=== PATIENT | male | born 1935 | race Caucasian/White ===

== ENCOUNTER → 2017-11-15 12:17 | Outpatient (CLI) | payer OTHER, SELFPAY ==
[2017-11-15 14:03] LABS: BUN Creatinine Ratio 27.1 (6-22); Blood Urea Nitrogen 19 mg/dL (9-20); Calcium 9.8 mg/dL (8.4-10.2); Carbon Dioxide 29 mmol/L (22-32); Chloride 102 mmol/L (98-107); Estimated Glomerular Filt Rate > 60.0 mL/min (>60); Glucose 98 mg/dL (80-110); HEMOLYSIS < 15 (0-50); Potassium 4.3 mmol/L (3.4-5.1); Sodium 138 mmol/L (137-145)
== END ==
PROVIDERS: Family Provider Family Medicine; PCP Family Medicine; Visit Provider Internal Medicine
DX: E87.1 Hypo-osmolality and hyponatremia (principal); I10 Essential (primary) hypertension
CPT/HCPCS: 36415; 80048

== ENCOUNTER 2018-08-14 09:26 | Day surgery (SDC) | payer OTHER, SELFPAY ==
[2018-08-14] MEDS: PROPARACAINE 0.5% OPHTH SOL 2 DROPS EYE-OP (09:53)
[2018-08-14] MEDS: CATARACT EYE COMPOUND (10 DROPS/SYRINGE) 3 DROPS EYE-OP ×3 (09:56→10:11)
[2018-08-14 09:58] VITALS: BP 180/100; PULSE 68; RESP 16; TEMP 36.1
--- NOTE | 2018-08-14 11:02 | PM.PREOP ---
Pre-operative Note Interval Note History & Physical reviewed/Exam performed by Physician: No Changes to H&P: No
--- NOTE | 2018-08-14 11:02 | PM.OP.1 ---
Operative Date/Time/Diagnoses Pre-op diagnosis: Nuclear cataract right eye Procedure & Clinicians Procedure: Cataract Surgery Same procedure as scheduled: Yes Surgeon: Joe Houston Anesthesia Type: MAC +/- and Sedation Operative Notes Procedure in detail: Patient brought to the operating suite. Tetracaine drops placed in the right eye. Patient was prepped and draped in sterile manner. Wire lid speculum was placed in the eye. Betadine drops were placed on the eye. This was irrigated. Lidocaine jelly was placed on the eye. A paracentesis port was created with a side-port blade. 0.1 mL 1% preservative free lidocaine was injected into the anterior chamber. The anterior chamber was deepened with viscoelastic. 2.6 mm keratome was used to create a temporal clear corneal incision. The pupil was floppy and miotic. A 6.25 mm Maluygin ring was used to enlarge the pupil. Cystotome and Utrata forceps were used to create continuous tear capsulorrhexis. Balanced salt solution was used to hydro dissect the nucleus. The phacoemulsification handpiece was inserted and the nucleus was removed using the stop and chop technique. The nucleous was extremely dense. The irrigation aspiration handpiece was inserted and the remaining cortex was removed. Anterior chamber was deepened with viscoelastic. An [place] ZCB00 intraocular lens with a power of 20.5 was injected into the capsular bag. The Malygyn ring was removed. Irrigation aspiration handpiece was inserted and the remaining viscoelastic was removed. Incision was hydrated with balanced salt solution and found to be leak free with pressure with Weck-Alexandra sponges. 0.1 mL Vigamox injected anterior chamber. 0.3 mL Kenalog 10 mg was injected subconjunctivally. Lid speculum was removed. The patient left the operating room in excellent condition. Complications: none Condition: stable Disposition: same day surgery
--- NOTE | 2018-08-14 11:11 | SUR.OPER ---
Supine on eye stretcher, head on extension cradle secured with tape. Arms tucked at sides with blanket. Pillow under knees.
[2018-08-14] MEDS: MOXIFLOXACIN OPHTH DROPS 3 ML BOTTLE 2 DROPS INJ (11:13)
[2018-08-14] MEDS: PHENYLEPHRINE/LIDOCAINE VIAL (OR) 0.2 ML EYE-OP (11:13)
[2018-08-14] MEDS: TRIAMCINOLONE 50 MG/5 ML VIAL INJ (11:14)
[2018-08-14] MEDS: LIDOCAINE JELLY 2% 5 ML 1 APPLIC TOP (11:14)
[2018-08-14] MEDS: CHONDROIDTIN/SOD HYALURONATE 1.05 ML SYRINGE INTRAOCULA (11:16)
[2018-08-14] MEDS: BALANCED SALT IRRIG SOLN NO.2 500 ML, EPINEPHrine 1 MG IRR (11:17)
[2018-08-14] MEDS: TETRACAINE 0.5% OPHTH DROPS 4 ML 2 DROPS EYE-OP (11:17)
[2018-08-14 11:35] VITALS: BP 162/89; PULSE 65; RESP 16; TEMP 36; O2SAT 98
== END 2018-08-14 11:52 | disposition home or self-care (01) ==
PROVIDERS: PCP Student in an Organized Health Care Education/Training Program; Visit Provider Ophthalmology
DX: H25.11 Age-related nuclear cataract, right eye (principal); I10 Essential (primary) hypertension
CPT/HCPCS: J0171; J3301

== ENCOUNTER 2018-08-28 12:00 | Day surgery (SDC) | payer OTHER, SELFPAY ==
[2018-08-28 12:44] VITALS: BP 175/93; PULSE 71; RESP 16; TEMP 36.4; O2SAT 98; BMI 23.1
[2018-08-28] MEDS: PROPARACAINE 0.5% OPHTH SOL 2 DROPS EYE-OP (12:55)
[2018-08-28] MEDS: CATARACT EYE COMPOUND (10 DROPS/SYRINGE) 3 DROPS EYE-OP (13:03)
--- NOTE | 2018-08-28 13:38 | PM.PREOP ---
Pre-operative Note Interval Note History & Physical reviewed/Exam performed by Physician: No Changes to H&P: No
--- NOTE | 2018-08-28 13:38 | PM.OP.1 ---
Operative Date/Time/Diagnoses Pre-op diagnosis: Nuclear Cataract Left eye Post-op diagnosis: same Procedure & Clinicians Surgeon: Joe Houston Anesthesia Type: MAC +/- and Sedation Operative Notes Procedure in detail: Patient brought to the operating suite. Tetracaine drops placed in the left eye. Patient was prepped and draped in sterile manner. Wire lid speculum was placed in the eye. Betadine drops were placed on the eye. This was irrigated. Lidocaine jelly was placed on the eye. A paracentesis port was created with a side-port blade. 0.1 mL 1% preservative free lidocaine was injected into the anterior chamber. The anterior chamber was deepened with viscoelastic. 2.6 mm keratome was used to create a temporal clear corneal incision. The pupil was floppy and miotic. A 6.25 mm Malyugin ring was used to enlarge the pupil. Cystotome and Utrata forceps were used to create continuous tear capsulorrhexis. Balanced salt solution was used to hydro dissect the nucleus. The phacoemulsification handpiece was inserted and the nucleus was removed using the stop and chop technique. The irrigation aspiration handpiece was inserted and the remaining cortex was removed. Anterior chamber was deepened with viscoelastic. An Mend[place]ola ZCB00 intraocular lens with a power of 20.0 was injected into the capsular bag. The Malyugin ring was removed. Irrigation aspiration handpiece was inserted and the remaining viscoelastic was removed. Incision was hydrated with balanced salt solution and found to be leak free with pressure with Weck-Alexandra sponges. 0.1 mL Vigamox injected anterior chamber. 0.3 mL Kenalog 10 mg was injected subconjunctivally. Lid speculum was removed. The patient left the operating room in excellent condition. Complications: none Condition: stable Disposition: same day surgery
[2018-08-28] MEDS: CHONDROIDTIN/SOD HYALURONATE 1.05 ML SYRINGE INTRAOCULA (13:55)
[2018-08-28] MEDS: LIDOCAINE JELLY 2% 5 ML 1 APPLIC TOP (13:55)
[2018-08-28] MEDS: PHENYLEPHRINE/LIDOCAINE VIAL (OR) 0.2 ML EYE-OP (13:56)
[2018-08-28] MEDS: TETRACAINE 0.5% OPHTH DROPS 4 ML 2 DROPS EYE-OP (13:56)
[2018-08-28] MEDS: MOXIFLOXACIN OPHTH DROPS 3 ML BOTTLE 2 DROPS INJ (13:56)
[2018-08-28] MEDS: BALANCED SALT IRRIG SOLN NO.2 500 ML, EPINEPHrine 1 MG IRR (13:57)
[2018-08-28] MEDS: TRIAMCINOLONE 50 MG/5 ML VIAL INJ (13:57)
[2018-08-28 14:20] VITALS: BP 173/84; PULSE 62; RESP 16; TEMP 36.7; O2SAT 100
== END 2018-08-28 14:20 ==
LOC: OR 12:02
PROVIDERS: PCP Student in an Organized Health Care Education/Training Program; Visit Provider Ophthalmology
PROC: (CPT 66984; principal; 2018-08-28 13:45)
DX: H25.12 Age-related nuclear cataract, left eye (principal)
CPT/HCPCS: 66984; J0171; J2250; J3010; J3301

== ENCOUNTER → 2019-02-20 15:52 | Outpatient (CLI) | payer OTHER, SELFPAY ==
[2019-02-20 16:48] LABS: Hematocrit 44.7 % (41-53); Mean Corpuscular HGB Conc 33.6 % (30-36); Mean Corpuscular Hemoglobin 30.6 PG (26-34); Mean Corpuscular Volume 91.1 fL (80-100); Platelet Count 233 X10^3/uL (150-400); Red Blood Cell Count 4.91 X10^6/uL (4.5-5.9); Red Cell Distribution Width 13.9 % (11.6-14.8); White Blood Cell Count 7.5 X10^3/uL (4.5-11.0)
[2019-02-20 17:33] LABS: BUN Creatinine Ratio 24.3 (6-22); Blood Urea Nitrogen 17 mg/dL (9-20); Calcium 10.3 mg/dL (8.4-10.2); Carbon Dioxide 25 mmol/L (22-32); Chloride 103 mmol/L (98-107); Estimated Glomerular Filt Rate > 60.0 mL/min (>60); Glucose 93 mg/dL (80-110); HEMOLYSIS < 15 (0-50); Potassium 4.7 mmol/L (3.4-5.1); Sodium 137 mmol/L (137-145)
[2019-02-20 17:58] LABS: TSH w/ Reflex to FT4 1.22 uIU/mL (0.47-4.68)
[2019-02-20 18:21] LABS: Vitamin B12 706 pg/mL (239-931)
== END ==
PROVIDERS: PCP Student in an Organized Health Care Education/Training Program; Visit Provider Student in an Organized Health Care Education/Training Program
DX: I10 Essential (primary) hypertension (principal); R53.83 Other fatigue; R68.89 Other general symptoms and signs
CPT/HCPCS: 36415; 80048; 82607; 84403; 84443; 85027

== ENCOUNTER → 2019-05-31 12:19 | Outpatient (CLI) | payer OTHER, SELFPAY ==
[2019-05-31 12:54] LABS: Bilirubin Urine UA NEGATIVE (NEGATIVE); Color Urine UA RED; Glucose Urine UA NEGATIVE (Negative); Ketones Urine UA NEGATIVE (NEGATIVE); Leukocyte Esterase Urine UA TRACE (NEGATIVE); Nitrite Urine UA POSITIVE (Negative); Occult Blood Urine UA 3+ (Negative); Protein Urine UA 2+ (Negative); Urobilinogen Urine UA 0.2 E.U./dL (0.2)
[2019-05-31 12:55] LABS: Appearance Urine UA OTHER
[2019-05-31 13:10] LABS: Bacteria Urine Many (>30); Culture Indicated Urine Specimen Cultured; RBC Urine >100/HPF (0-5/HPF); WBC Urine 5-10/HPF (0-5/HPF)
== END ==
PROVIDERS: PCP Student in an Organized Health Care Education/Training Program; Referring Provider Student in an Organized Health Care Education/Training Program; Visit Provider Student in an Organized Health Care Education/Training Program
DX: R31.9 Hematuria, unspecified (principal)
CPT/HCPCS: 81001; 87086

== ENCOUNTER → 2019-06-11 14:29 | Outpatient (CLI) | payer OTHER, SELFPAY ==
[2019-06-11 15:24] LABS: Appearance Urine UA CLEAR; Bilirubin Urine UA NEGATIVE (NEGATIVE); Color Urine UA YELLOW; Glucose Urine UA NEGATIVE (Negative); Ketones Urine UA NEGATIVE (NEGATIVE); Leukocyte Esterase Urine UA NEGATIVE (NEGATIVE); Nitrite Urine UA NEGATIVE (Negative); Occult Blood Urine UA 3+ (Negative); Protein Urine UA NEGATIVE (Negative); Specific Gravity Urine UA <=1.005 (1.000-1.035); Urobilinogen Urine UA 0.2 E.U./dL (0.2)
[2019-06-11 15:34] LABS: Bacteria Urine Occasional (0-1); Culture Indicated Urine Cult Not Indicated; RBC Urine 0-1/HPF (0-5/HPF); Squamous Epithelial Cell Urine 0-1 /HPF (0-5/HPF); WBC Urine 1-5/HPF (0-5/HPF)
== END ==
PROVIDERS: PCP Student in an Organized Health Care Education/Training Program; Referring Provider Student in an Organized Health Care Education/Training Program; Visit Provider Student in an Organized Health Care Education/Training Program
DX: N39.0 Urinary tract infection, site not specified (principal); R31.9 Hematuria, unspecified
CPT/HCPCS: 81001

== ENCOUNTER → 2019-07-30 11:03 | Outpatient (CLI) | payer OTHER, SELFPAY ==
--- NOTE | 2019-07-30 | DI.CT.S_ITS ---
PROCEDURE: CT ABDOMEN PELVIS WO/W CON INDICATIONS: Painless, gross hematuria TECHNIQUE: Optional 5 mm thick noncontrast images acquired from the diaphragm to the symphysis pubis. After the administration of intravenous contrast, 5 mm thick images acquired from the diaphragm to the symphysis pubis after a 10-minute delay. 2 mm thick coronal and sagittal reformats were then performed of the kidneys and ureters. For radiation dose reduction, the following was used: automated exposure control, adjustment of mA and/or kV according to patient size. COMPARISON: None. FINDINGS: Image quality: Excellent. Lung bases: Lung bases are clear except for mild scarring in several calcified granulomas at the right lung base. Heart size is normal. Urinary system: Both kidneys are normal in size, without hydronephrosis or nephrolithiasis on pre-contrast images. No perinephric fat stranding. There is normal bilateral renal enhancement. Renal calyces appear normal in morphology when filled with contrast. Opacified portions of both ureters demonstrate normal caliber. Bladder wall thickness is normal but there is asymmetric lobulated soft tissue prominence at end immediately adjacent to the bladder trigone, best seen on axial imaging series 4 image 184, which is associated with a small amount of faint calcification at this site seen on the noncontrast series 2 image 73.. No calcified bladder stones. Other solid organs: Liver is normal in size and enhancement. Gallbladder appears normal. Biliary system is non dilated. Pancreas enhances normally. Spleen is normal in size and enhancement. No adrenal nodules. Peritoneum and bowel: Bowel loops demonstrate normal wall thickness and caliber. No free fluid or air. Nodes and vessels: No retroperitoneal or mesenteric adenopathy by size criteria. Aorta and inferior vena cava are normal in size. Abdominal wall: No ventral hernias. Pelvis: No pathologic free pelvic fluid. No inguinal hernias or adenopathy. Bones: No suspicious bony lesions. No vertebral body compression fractures. IMPRESSION: Lobulated soft tissue prominence at the right bladder trigone, with overall dimensions measuring up to 2.1 x 2.9 cm, with a small amount of faint surfaced dystrophic calcifications seen on the noncontrast imaging through that area. 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 No collecting system or ureteral calculus is found. Urology consultation with retrograde cystoscopy appears warranted. The apparent mass extends to approximate the right ureteral orifice but hydronephrosis and hydroureter on the right has not yet developed. Dictated by: Chivo Estrella M.D. on 07/30/2019 at 14:08 Approved by: Chivo Estrella M.D. on 07/30/2019 at 14:17
[2019-07-30 11:39] LABS: BUN Creatinine Ratio 13.9 (6-22); Blood Urea Nitrogen 11 mg/dL (9-20); Calcium 10.6 mg/dL (8.4-10.2); Carbon Dioxide 27 mmol/L (22-32); Chloride 104 mmol/L (98-107); Estimated Glomerular Filt Rate > 60.0 mL/min (>60); Glucose 112 mg/dL (80-110); HEMOLYSIS < 15 (0-50); Potassium 4.3 mmol/L (3.4-5.1); Sodium 138 mmol/L (137-145)
== END ==
PROVIDERS: PCP Student in an Organized Health Care Education/Training Program; Referring Provider Urology; Visit Provider Urology
DX: R31.0 Gross hematuria (principal); N32.9 Bladder disorder, unspecified
CPT/HCPCS: 36415; 74178; 80048; Q9967

== ENCOUNTER → 2020-08-05 09:25 | Outpatient (CLI) | payer OTHER, SELFPAY ==
[2020-08-05 11:00] LABS: BUN Creatinine Ratio 15.4 (6-22); Blood Urea Nitrogen 12 mg/dL (9-20); Calcium 10.2 mg/dL (8.4-10.2); Carbon Dioxide 30 mmol/L (22-32); Chloride 103 mmol/L (98-107); Estimated Glomerular Filt Rate > 60.0 mL/min (>60); Glucose 109 mg/dL (80-110); HEMOLYSIS < 15 (0-50); Potassium 4.3 mmol/L (3.4-5.1); Sodium 138 mmol/L (137-145)
== END ==
PROVIDERS: PCP Student in an Organized Health Care Education/Training Program; Referring Provider Student in an Organized Health Care Education/Training Program; Visit Provider Student in an Organized Health Care Education/Training Program
DX: N14.1 Nephropathy induced by other drugs, medicaments and biological substances (principal); T50.8X5A Adverse effect of diagnostic agents, initial encounter
CPT/HCPCS: 36415; 80048

== ENCOUNTER → 2020-08-24 15:12 | Outpatient (CLI) | payer OTHER, SELFPAY ==
[2020-08-24 16:06] LABS: BUN Creatinine Ratio 20.5 (6-22); Blood Urea Nitrogen 15 mg/dL (9-20); Estimated Glomerular Filt Rate > 60.0 mL/min (>60)
== END ==
PROVIDERS: PCP Student in an Organized Health Care Education/Training Program; Referring Provider Student in an Organized Health Care Education/Training Program; Visit Provider Student in an Organized Health Care Education/Training Program
DX: Z01.818 Encounter for other preprocedural examination (principal)
CPT/HCPCS: 36415; 82565; 84520

== ENCOUNTER → 2020-08-27 11:38 | Outpatient (CLI) | payer OTHER, SELFPAY ==
--- NOTE | 2020-08-27 12:24 | DI.CT.S_ITS ---
PROCEDURE: CT ABDOMEN PELVIS W CON INDICATIONS: Re-eval for metastatic disease. H/o bladder cancer TECHNIQUE: After the administration of intravenous contrast, 5 mm thick sections acquired from the diaphragm to the symphysis. 5 mm coronal and sagittal reformats were acquired. For radiation dose reduction, the following was used: automated exposure control, adjustment of mA and/or kV according to patient size. COMPARISON: [facility], CT, CT ABDOMEN PELVIS WO/W CON, 07/30/2019, 11:56. [facility], CT, ABDOMEN W&WO CONTRAST, 07/11/2012, 10:41. FINDINGS: ABDOMEN: Lung bases: Scattered calcified pleural plaques. Scattered subsegmental atelectasis and/or scarring. No focal consolidation. Heart: Coronary artery calcifications. Liver: Hepatic steatosis. Gallbladder: Negative Bile ducts: Dilated appearance of the common bile duct although no definite radiopaque calculi seen. This is unchanged since 07/11/12. Pancreas: Normal. Spleen: Normal. Adrenals: Normal. Kidneys and Ureters: Subcentimeter renal foci, statistically cysts, although technically too small to characterize accurately and therefore nonspecific. No hydronephrosis. Stomach and duodenum: There is possible distal stomach/antral wall thickening although the appearance is also unchanged since the prior study. Bowel: Normal. Appendix not well seen however grossly unremarkable. Other: No free fluid or air. Abdominal nodes: Normal. Aorta and IVC: Normal in size. Ventral wall: Normal. PELVIS: Bladder: Marked circumferential bladder mural thickening. Prostate enlarged. Large presumed partially visualized bilateral hydroceles, right greater than left. Inguinal region: No hernia. Pelvic nodes: Normal. Bones: Diffuse severe spondylosis and facet arthropathy. Posterior spinal fixation hardware and interbody cage grafts. IMPRESSION: Overall, no specific evidence for active metastatic disease. Of note, marked bladder wall thickening which was present on the prior study from 07/30/19. The lobulated soft tissue seen on the prior study is not visualized/resected. Please correlate clinically and with any cystoscopic data as necessary. Additional chronic and incidental findings as above. Dictated by: Dk Nolan M.D. on 08/27/2020 at 15:51 Approved by: Dk Nolan M.D. on 08/27/2020 at 16:10
== END ==
PROVIDERS: PCP Student in an Organized Health Care Education/Training Program; Referring Provider Student in an Organized Health Care Education/Training Program; Visit Provider Student in an Organized Health Care Education/Training Program
DX: C67.9 Malignant neoplasm of bladder, unspecified (principal); N40.0 Benign prostatic hyperplasia without lower urinary tract symptoms; I25.10 Atherosclerotic heart disease of native coronary artery without angina pectoris; K76.0 Fatty (change of) liver, not elsewhere classified
CPT/HCPCS: 74177; Q9967

== ENCOUNTER 2020-11-29 09:24 | Emergency (ER) | payer OTHER, SELFPAY ==
[2020-11-29] VITALS (15 sets, daily range): BP systolic 160–201; BP diastolic 86–107; PULSE 60–74; RESP 13–21; TEMP 36.6; O2SAT 95–99; BMI 24.4
[2020-11-29 10:07] LABS: Add Manual Diff / Slide Review NO; Basophils Absolute Auto 100 /uL (0-100); Basophils Percent Auto 1.9 % (0-2); Eosinophils Absolute Auto 100 /uL (0-450); Eosinophils Percent Auto 2.1 % (2-4); Hematocrit 43.6 % (41-53); Hemoglobin 14.5 g/dL (13.5-17.5); Lymphocytes Absolute Auto 1100 /uL (1100-4500); Lymphocytes Percent Auto 20.6 % (25-40); Mean Corpuscular HGB Conc 33.1 % (30-36); Mean Corpuscular Hemoglobin 30.6 PG (26-34); Mean Corpuscular Volume 92.2 fL (80-100); Monocytes Absolute Auto 600 /uL (0-900); Monocytes Percent Auto 10.8 % (3-14); Neutrophils Absolute Auto 3600 /uL (1500-7000); Neutrophils Percent Auto 64.6 % (50-75); Platelet Count 231 X10^3/uL (150-400); Red Blood Cell Count 4.73 X10^6/uL (4.5-5.9); Red Cell Distribution Width 14.5 % (11.6-14.8); White Blood Cell Count 5.6 X10^3/uL (4.5-11.0)
[2020-11-29 10:19] LABS: Alanine Aminotransferase 28 IU/L (<50); Albumin 4.1 g/dL (3.5-5.0); Albumin Globulin Ratio 1.3 (1.0-2.8); Alkaline Phosphatase 74 U/L (38-126); Aspartate Aminotransferase 48 IU/L (17-59); BUN Creatinine Ratio 23.2 (6-22); Bilirubin Total 0.4 mg/dL (0.2-1.3); Blood Urea Nitrogen 16 mg/dL (9-20); Calcium 10.1 mg/dL (8.4-10.2); Carbon Dioxide 27 mmol/L (22-32); Chloride 105 mmol/L (98-107); Estimated Glomerular Filt Rate > 60.0 mL/min (>60); Globulin 3.2 g/dL (1.7-4.1); Glucose 130 mg/dL (80-110); HEMOLYSIS 15 (0-50); Potassium 3.7 mmol/L (3.4-5.1); Sodium 137 mmol/L (137-145); Total Protein 7.3 g/dL (6.3-8.2)
--- NOTE | 2020-11-29 10:41 | ED.DIZZY ---
HPI - Dizziness General Chief Complaint: Dizziness Stated Complaint: loss of balance/dizzy Time Seen by Provider: 11/29/20 09:54 Source: patient Mode of arrival: Ambulatory Limitations: no limitations History of Present Illness HPI Narrative: The patient has dizziness, onset yesterday. He has no nausea vomiting. He has no visual changes. He denies palpitations or chest pain. He has no focal weakness or numbness. He had counter-clockwise spinning with the dizziness. He has no ear discomfort or sinus issues. He has no prior history of tinnitus. He does take baby aspirin occasionally. He has recently been cleared for prostate cancer. He does use Flomax. He denies recent illness. Related Data Home Medications Medication Instructions Recorded Confirmed cholecalciferol (vitamin D3) 50 2,000 unit PO DAILY 06/02/19 08/05/20 mcg (2,000 unit) capsule Previous Rx's Medication Instructions Recorded tamsulosin 0.4 mg capsule (Flomax) 0.4 mg PO HS #90 cap 07/20/17 duloxetine 40 mg capsule,delayed 40 mg PO QDAY #90 cap 01/30/20 release famotidine 20 mg tablet 20 mg PO BEDTIME #90 tab 01/30/20 duloxetine 20 mg capsule,delayed 20 mg PO DAILY #14 cap 08/05/20 release meclizine 25 mg tablet 25 mg PO TID PRN #20 tab 11/29/20 Allergies Allergy/AdvReac Type Severity Reaction Status Date / Time Penicillins [PENICILLINS] Allergy Mild rash Verified 08/05/20 09:03 Review of Systems Constitutional Constitutional: Denies chills, Denies fatigue, Denies fever(s) and Denies headache(s) Eyes Eyes: Denies change in vision ENT Ears, Nose, Mouth, and Throat: Reports dizziness, Denies otalgia, Denies headache(s), Denies nasal congestion, Denies sinus pain and Denies sore throat Cardiovascular Cardiovascular: Denies chest pain, Denies rapid heart rate and Denies dyspnea Respiratory Respiratory: Denies chest congestion, Denies cough and Denies dyspnea Gastrointestinal Gastrointestinal: Denies nausea Genitourinary Genitourinary: Reports urinary hesitancy Musculoskeletal Musculoskeletal: Reports back pain (Chronic) and Denies numbness Integumentary/Breasts Comments: No complaints Neurologic Neurologic: Reports as per HPI, Reports dizziness, Denies headache(s) and Denies numbness Endocrine Endocrine: Denies fatigue Patient History Medical History Coccidioidomycosis, unspecified (11/11/10) DDD (degenerative disc disease), lumbar Hyperlipidemia Hypertension Right inguinal hernia (02/2014) Villous adenoma of colon (1998) Surgical History History of inguinal hernia repair (2016) History of spinal surgery (2015) History of spinal surgery (2016) S/P TURP (status post transurethral resection of prostate) Status post arthroscopy (2010) Status post colectomy (1979) Status post colonoscopy (2009) Family History Father Colorectal cancer Mother No problems noted. Social History household members: spouse Smoking Status: Never smoker Smoking Status: Never smoker alcohol intake frequency: a few times a month Substance Use Type: does not use Exam Initial Vital Signs Initial Vital Signs: Vital Signs Temperature 97.9 F 11/29/20 09:25 Pulse Rate 69 11/29/20 09:25 Respiratory Rate 16 11/29/20 09:25 Blood Pressure 187/94 H 11/29/20 09:25 Pulse Oximetry 98 11/29/20 09:25 Const General: cooperative, healthy appearing, comfortable, well developed and well groomed [facility] Head: normocephalic and atraumatic Ears: external ears normal and TM's normal bilaterally Nose: nares normal Face and sinus: normal facial exam and sinuses nontender Mouth: oral mucosae normal Throat: posterior oropharynx normal Eyes Conjunctivae: conjunctivae normal Sclera: sclerae normal Pupils: PERRL EOM: EOM intact bilaterally Neck Neck: No lymphadenopathy and No JVD Chest Chest: normal inspection of the chest Resp Effort & Inspection: normal respiratory effort and able to speak in complete sentences Cardio Rate: regular rate Rhythm: regular rhythm Heart Sounds: S1 normal and S2 normal GI Inspection: normal to inspection Skin General: no rashes or lesions noted Neuro General: patient alert, patient awake, patient oriented x3 and [place] (Positive to the left side.) Cranial Nerves: CN's II-XI intact bilaterally Course Course Course Narrative: Symptoms have not totally resolved but dramatically improved after a dose of meclizine. He will be discharged on meclizine. Orders Ordered: ED Orders 11/29/20 09:40 Complete Blood Count AUTO DIFF Stat Comprehensive Metabolic Panel Stat 11/29/20 09:43 EKG-12 Lead Stat Discontinued Medications Meclizine HCl (Meclizine Hcl 12.5 Mg Tablet) 50 mg PO NOW ONE Stop: 11/29/20 10:53 Last Admin: 11/29/20 10:58 Dose: 50 mg Documented by: MYESHA Vital Signs Vital signs: Vital Signs - 8 hr 11/29/20 09:25 11/29/20 09:36 11/29/20 09:55 Temperature 97.9 F Pulse Rate 69 67 64 Pulse Rate [Orthostatic Lying] Pulse Rate [Orthostatic Sitting] Pulse Rate [Orthostatic Standing] Respiratory Rate 16 21 Blood Pressure 187/94 H 189/86 H Blood Pressure [Orthostatic Lying] Blood Pressure [Orthostatic Sitting] Blood Pressure [Orthostatic Standing] Pulse Oximetry 98 98 97 11/29/20 09:56 11/29/20 09:58 11/29/20 10:01 Temperature Pulse Rate 71 74 Pulse Rate [Orthostatic Lying] 64 Pulse Rate [Orthostatic Sitting] 68 Pulse Rate [Orthostatic Standing] 74 Respiratory Rate 13 Blood Pressure 182/86 H 201/96 H Blood Pressure [Orthostatic Lying] 189/86 H Blood Pressure [Orthostatic Sitting] 182/86 H Blood Pressure [Orthostatic Standing] 201/96 H Pulse Oximetry 97 97 11/29/20 10:08 11/29/20 10:10 11/29/20 10:30 Temperature Pulse Rate 66 64 63 Pulse Rate [Orthostatic Lying] Pulse Rate [Orthostatic Sitting] Pulse Rate [Orthostatic Standing] Respiratory Rate 21 18 18 Blood Pressure 160/98 H 160/93 H Blood Pressure [Orthostatic Lying] Blood Pressure [Orthostatic Sitting] Blood Pressure [Orthostatic Standing] Pulse Oximetry 99 98 96 11/29/20 11:00 11/29/20 11:30 11/29/20 11:31 Temperature Pulse Rate 61 63 62 Pulse Rate [Orthostatic Lying] Pulse Rate [Orthostatic Sitting] Pulse Rate [Orthostatic Standing] Respiratory Rate 18 21 Blood Pressure 167/96 H 183/96 H Blood Pressure [Orthostatic Lying] Blood Pressure [Orthostatic Sitting] Blood Pressure [Orthostatic Standing] Pulse Oximetry 97 98 98 11/29/20 11:43 11/29/20 12:00 11/29/20 12:30 Temperature Pulse Rate 66 60 64 Pulse Rate [Orthostatic Lying] Pulse Rate [Orthostatic Sitting] Pulse Rate [Orthostatic Standing] Respiratory Rate 20 18 Blood Pressure 189/107 H 180/101 H 185/97 H Blood Pressure [Orthostatic Lying] Blood Pressure [Orthostatic Sitting] Blood Pressure [Orthostatic Standing] Pulse Oximetry 95 99 97 MDM - Dizziness Lab Data Result diagrams: 11/29/20 09:40 11/29/20 09:40 Labs: Lab Results 11/29/20 11/29/20 Range/Units 09:40 09:40 WBC 5.6 (4.5-11.0) X10^3/uL RBC 4.73 (4.5-5.9) X10^6/uL Hgb 14.5 (13.5-17.5) g/dL Hct 43.6 (41-53) % MCV 92.2 (80-100) fL MCH 30.6 (26-34) PG MCHC 33.1 (30-36) % RDW 14.5 (11.6-14.8) % Plt Count 231 (150-400) X10^3/uL Neut % (Auto) 64.6 (50-75) % Lymph % (Auto) 20.6 L (25-40) % Ralls % (Auto) 10.8 (3-14) % Eos % (Auto) 2.1 (2-4) % Baso % (Auto) 1.9 (0-2) % Neut # (Auto) 3600 (4018-9999) /uL Lymph # (Auto) 1100 (6633-3378) /uL Ralls # (Auto) 600 (0-900) /uL Eos # (Auto) 100 (0-450) /uL Baso # (Auto) 100 (0-100) /uL Sodium 137 (137-145) mmol/L Potassium 3.7 (3.4-5.1) mmol/L Chloride 105 (98-107) mmol/L Carbon Dioxide 27 (22-32) mmol/L BUN 16 (9-20) mg/dL Creatinine 0.69 (0.66-1.25) mg/dL Estimated GFR > 60.0 (>60) mL/min BUN/Creatinine Ratio 23.2 H (6-22) Glucose 130 H (80-110) mg/dL Calcium 10.1 (8.4-10.2) mg/dL Total Bilirubin 0.4 (0.2-1.3) mg/dL AST 48 (17-59) IU/L ALT 28 (<50) IU/L Alkaline Phosphatase 74 (38-126) U/L Total Protein 7.3 (6.3-8.2) g/dL Albumin 4.1 (3.5-5.0) g/dL Globulin 3.2 (1.7-4.1) g/dL Albumin/Globulin Ratio 1.3 (1.0-2.8) Urine Dip Bedside Urine Glucose Negative Bedside Urine Bilirubin - Negative Bedside Urine Ketone - Negative Urine Specific [place] 1.010 Bedside Urine Occult Blood - Negative Bedside Urine pH 6.0 Bedside Urine Protein - Negative Bedside Urine Urobilinogen - Negative Bedside Urine Nitrite - Negative Bedside Urine Leukocytes - Negative Esterase ECG Data Attestation: I personally reviewed and interpreted this ECG as follows: (Normal sinus rhythm at 64 beats per minute. Nonspecific ST T wave changes. No ectopy. No acute findings.) Discharge Plan Departure Patient Disposition: Home Clinical Impression: Labyrinthitis of left ear Instructions: Labyrinthitis Activity Restrictions/Additional Instructions: Continue your regular medications. Meclizine every 6-8 hours as needed for dizziness. If not improved in 3-4 days follow-up with your doctor or return here. Prescriptions: New meclizine 25 mg tablet 25 mg PO TID PRN (Reason: dizziness) Qty: 20 RF: 0 No Action tamsulosin [Flomax] 0.4 MG capsule,extended release 24hr 0.4 mg PO HS Qty: 90 RF: 3 cholecalciferol (vitamin D3) 50 mcg (2,000 unit) capsule 2,000 unit PO DAILY RF: 0 famotidine 20 mg tablet 20 mg PO BEDTIME Qty: 90 RF: 3 duloxetine 40 mg capsule,delayed release(DR/EC) 40 mg PO QDAY Qty: 90 RF: 3 duloxetine 20 mg capsule,delayed release(DR/EC) 20 mg PO DAILY Qty: 14 RF: 0 Referrals: Deonte Ricks MD [Primary Care Provider] -
[2020-11-29] MEDS: MECLIZINE HCL 12.5 MG TABLET 50 MG PO (10:58)
--- NOTE | 2020-11-29 11:35 | PC.NURSE ---
Ambulated with pt. No improvement with meclazine. Still dizzy with movement
== END 2020-11-29 12:46 | disposition home or self-care (01) ==
PROVIDERS: Emergency Provider Emergency Medicine; PCP Student in an Organized Health Care Education/Training Program
DX: H83.02 Labyrinthitis, left ear (principal); R41.82 Altered mental status, unspecified
CPT/HCPCS: 36415; 80053; 81003; 85025; 93005; 93010; 99284

== ENCOUNTER 2020-12-21 14:58 | Outpatient (RCR) | payer OTHER, SELFPAY ==
--- NOTE | 2020-12-21 17:17 | PT.OIE ---
Current Diagnoses Labyrinthitis, left ear (12/21/20) Other abnormalities of gait and mobility (12/21/20) Past Medical History (Last Reviewed 11/29/20 @ 10:57 by Richardson Wray MD) Coccidioidomycosis, unspecified (11/11/10) DDD (degenerative disc disease), lumbar History of inguinal hernia repair (2016) History of spinal surgery (2015) History of spinal surgery (2016) Hyperlipidemia Hypertension Right inguinal hernia (02/2014) S/P TURP (status post transurethral resection of prostate) Villous adenoma of colon (1998) Past Surgical History (Last Reviewed 11/29/20 @ 10:57 by Richardson Wray MD) History of inguinal hernia repair (2016) History of spinal surgery (2015) History of spinal surgery (2016) S/P TURP (status post transurethral resection of prostate) Status post arthroscopy (2010) Status post colectomy (1979) Status post colonoscopy (2009) Visit Care Team Role Provider Type Deonte Ricks MD Attending Provider Physician Primary Care Provider Referring Provider Specialty: Internal Medicine Address: [address] [place] [address], [address], [employer] Email: [email or web address] Physical Therapy Initial Evaluation PT-OP-A Visit Information Start: 12/21/20 16:56 Freq: Status: Active Protocol: Document 12/21/20 15:15 DCW (Rec: 12/21/20 16:57 DCW [id number]) Out-Patient Physical Therapy Visit Information Visit Information Visit Type Initial Evaluation Visit Start Time 15:15 Visit Stop Time 16:00 Total Visit Minutes 45 Visit Number 1 Number of GRAINER MACHINE Visits 0 Evaluation Information Evaluation Date 12/21/20 PT-OP-B Current Condition Start: 12/21/20 16:56 Freq: Status: Active Protocol: Document 12/21/20 15:15 DCW (Rec: 12/21/20 17:16 DCW [id number]) Current Condition History of Current Condition Onset Date 11/28/20 Current Complaints Off-balance when getting up OOB or fast head turns History of Current Condition Pt is an 85 year old male complaining of a three week history of somewhat motion- induced imbalance. Pt reports initial episode on 11/29/20 had him feeling pretty lousy all day, he ended up going to the ED the following day, notes he was diagnosed with some form of vertigo, they gave me some pills to take, and he has felt overall fairly well since. Notes he has some difficulty with sitting up or moving too quickly, but reports he was told to slow down a bit, which is helping him feel much better. Symptoms appear to be more of a sensation of instability than true rotational vertigo. PT-OP-C Subjective Start: 12/21/20 16:56 Freq: Status: Active Protocol: Document 12/21/20 15:15 DCW (Rec: 12/21/20 17:16 DCW [id number]) OP-PT Subjective Patient Comments Patient Comments I think I'm pretty much fine at this point. There might be still a slight something when I get up in the morning. Patient Reported Progress Improving Patient Questionnaires ABC- Activity Specific Balance Confidence Scale ABC Score 100% ABC Functional Impairment 0% Impaired (Score 100) Dizziness Handicap Inventory DHI Score 4% PT-OP-O Vestibular Start: 12/21/20 16:56 Freq: Status: Active Protocol: Document 12/21/20 15:15 DCW (Rec: 12/21/20 17:16 DCW [id number]) Vestibular Assessment Screening Tests Vestibular Artery Screen Negative Auditory Tests Reynaga Test Within normal limits Rinne Test Negative Air Conduction Results Equal Visual Testing Smooth Pursuits Horizontal WNL Smooth Pursuits Vertical WNL Saccades Horizontal WNL Saccades Vertical WNL Gaze Evoked Nystagmus With Fixation Negative Gaze Evoked Nystagmus Without Fixation Negative Heave Test Positive Right Head Shake Negative Positional Testing Richard-Hallpike Negative Left,Negative Right Rolling Test Negative Left,Negative Right Comments Vestibular Comments Initially, thrust/heave testing was questionably positive to the right, however pt later admitted he wasn't really paying much attention, and upon a repeated test, pt performed much better. PT-OP-T Assessment and Plan Start: 12/21/20 16:56 Freq: Status: Active Protocol: Document 12/21/20 15:15 DCW (Rec: 12/21/20 17:16 DCW [id number]) Physical Therapy Assessment Rehab Potential Rehabilitation Potential Good Evaluation Complexity Number of Personal Factors/Comorbidities 3 or More Number of Body Systems Impaired 3 Clinical Presentation at Evaluation Unstable Goals One Impairment Pt reports increased instability when getting up in the morning Short Term Goal (STG) Pt to report no increased symptoms with any bed mobility or transfers. STG Duration 01/20/21 Assessment Summary Assessment Pt presents today with a largely negative vestibular test. Pt is somewhat tangential with his history, difficult to determine his actual reported symptoms at any one time. At points, his symptoms do sound somewhat suggestive of a mild vestibulopathy, likely vestibular neuritis due to no reported impact on his hearing , however at other times what he complains of sounds more like orthostasis. Unable to sonny orthostatic BP measurements today due to time constraints, however pt may benefit from further work-up. Because pt's vestibular evaluation was unremarkable, pt unsure if he would like to return for any follow-up care, but was agreeable to play it by ear and call for a follow -up if he felt his symptoms became problematic again. If pt does not schedule his next visit within the next month, he will be discharged at that time. Physical Therapy Plan Frequency and Duration Frequency of Treatment 1x/Week Duration of Treatment One month Plan of Care Start Date 12/21/20 Plan of Care End Date 01/20/21 Therapeutic Interventions Therapeutic Interventions Balance Training,Canalithic Repositioning,Neuromuscular Re -education,Patient/Caregiver Education,Self-Care/Home Management,Therapeutic Exercises,Vestibular Rehabilitation Next Visit Focus/Plan Next Note Type Treatment Note Next Visit Plan Further vestibular assessment, orthostatic BP measurements
--- NOTE | 2020-12-21 17:17 | PT.OPPOC ---
Physical, Occupational & Speech Therapy At [facility] Current Diagnoses Labyrinthitis, left ear (12/21/20) Other abnormalities of gait and mobility (12/21/20) Visit Care Team Role Provider Type Deonte Ricks MD Attending Provider Physician Primary Care Provider Referring Provider Specialty: Internal Medicine Address: [address] [place] [address], [address], [facility] Email: [email or web address] Plan Of Care PT-OP-T Assessment and Plan Start: 12/21/20 16:56 Freq: Status: Active Protocol: Document 12/21/20 15:15 DCW (Rec: 12/21/20 17:16 DCW [id number]) Physical Therapy Assessment Rehab Potential Rehabilitation Potential Good Evaluation Complexity Number of Personal Factors/Comorbidities 3 or More Number of Body Systems Impaired 3 Clinical Presentation at Evaluation Unstable Goals One Impairment Pt reports increased instability when getting up in the morning Short Term Goal (STG) Pt to report no increased symptoms with any bed mobility or transfers. STG Duration 01/20/21 Assessment Summary Assessment Pt presents today with a largely negative vestibular test. Pt is somewhat tangential with his history, difficult to determine his actual reported symptoms at any one time. At points, his symptoms do sound somewhat suggestive of a mild vestibulopathy, likely vestibular neuritis due to no reported impact on his hearing , however at other times what he complains of sounds more like orthostasis. Unable to sonny orthostatic BP measurements today due to time constraints, however pt may benefit from further work-up. Because pt's vestibular evaluation was unremarkable, pt unsure if he would like to return for any follow-up care, but was agreeable to play it by ear and call for a follow -up if he felt his symptoms became problematic again. If pt does not schedule his next visit within the next month, he will be discharged at that time. Physical Therapy Plan Frequency and Duration Frequency of Treatment 1x/Week Duration of Treatment One month Plan of Care Start Date 12/21/20 Plan of Care End Date 01/20/21 Therapeutic Interventions Therapeutic Interventions Balance Training,Canalithic Repositioning,Neuromuscular Re -education,Patient/Caregiver Education,Self-Care/Home Management,Therapeutic Exercises,Vestibular Rehabilitation Next Visit Focus/Plan Next Note Type Treatment Note Next Visit Plan Further vestibular assessment, orthostatic BP measurements Plan of Care Dates Plan of Care Start Date 12/21/20 Plan of Care End Date 01/20/21 Electronically Signed by: Faustino Iniguez, PT 12/21/20 4110 Please Sign and Return: I have reviewed this Plan of Care and certify that the skilled therapy services above are required to meet the patient?s needs. Physician Signature Date Printed Name and Credentials Clinical Instructor Signature Printed Name and Credentials
--- NOTE | 2021-03-02 09:39 | PT.OPDS ---
Current Diagnoses Labyrinthitis, left ear (12/21/20) Other abnormalities of gait and mobility (12/21/20) Visit Care Team Role Provider Type Deonte Ricks MD Attending Provider Physician Primary Care Provider Referring Provider Specialty: Internal Medicine Address: [address] [place] [address], [address], [facility] Email: [email or web address] Visit Number Visit Number 1 Discharge Summary PT-OP-B Current Condition Start: 12/21/20 16:56 Freq: Status: Active Protocol: Document 12/21/20 15:15 DCW (Rec: 12/21/20 17:16 DCW [id number]) Current Condition History of Current Condition Onset Date 11/28/20 Current Complaints Off-balance when getting up OOB or fast head turns History of Current Condition Pt is an 85 year old male complaining of a three week history of somewhat motion- inducedimbalance. Pt reports initial episode on 11/29/20 had him feeling pretty lousy all day, he ended up going to the ED the following day, notes he was diagnosed with some form of vertigo, they gave me some pills to take, and he has felt overall fairly well since. Notes he has some difficulty with sitting up or moving too quickly, but reports he was told to slow down a bit, which is helping him feel much better. Symptoms appear to be more of a sensation of instability than true rotational vertigo. PT-OP-C Subjective Start: 12/21/20 16:56 Freq: Status: Active Protocol: Document 12/21/20 15:15 DCW (Rec: 12/21/20 17:16 DCW [id number]) OP-PT Subjective Patient Comments Patient Comments I think I'm pretty much fine at this point. There might be still a slight something when I get up in the morning. Patient Reported Progress Improving Patient Questionnaires ABC- Activity Specific Balance Confidence Scale ABC Score 100% ABC Functional Impairment 0% Impaired (Score 100) Dizziness Handicap Inventory DHI Score 4% PT-OP-O Vestibular Start: 12/21/20 16:56 Freq: Status: Active Protocol: Document 12/21/20 15:15 DCW (Rec: 12/21/20 17:16 DCW [id number]) Vestibular Assessment Screening Tests Vestibular Artery Screen Negative Auditory Tests Reynaga Test Within normal limits Rinne Test Negative Air Conduction Results Equal Visual Testing Smooth Pursuits Horizontal WNL Smooth Pursuits Vertical WNL Saccades Horizontal WNL Saccades Vertical WNL Gaze Evoked Nystagmus With Fixation Negative Gaze Evoked Nystagmus Without Fixation Negative Heave Test Positive Right Head Shake Negative Positional Testing [place]-Hallpike Negative Left,Negative Right Rolling Test Negative Left,Negative Right Comments Vestibular Comments Initially, thrust/heave testing was questionably positive to the right, however pt later admitted he wasn't really paying much attention, and upon a repeated test, pt performed much better. PT-OP-T Assessment and Plan Start: 12/21/20 16:56 Freq: Status: Active Protocol: Document 03/02/21 09:39 [facility] (Rec: 03/02/21 09:39 [facility] [id number]) Physical Therapy Assessment Assessment Summary Assessment Pt has not called for any follow-up visits. As agreed, pt will be discharged at this time. Physical Therapy Plan Discharge Physical Therapy Discharge Reasons No Longer Attending PT Next Visit Focus/Plan Next Note Type Discharge Summary
== END 2021-05-11 09:38 ==
LOC: PHYS 14:58
PROVIDERS: PCP Student in an Organized Health Care Education/Training Program; Referring Provider Student in an Organized Health Care Education/Training Program; Visit Provider Student in an Organized Health Care Education/Training Program
DX: H83.02 Labyrinthitis, left ear (principal); R26.89 Other abnormalities of gait and mobility
CPT/HCPCS: 97162

== ENCOUNTER 2021-03-08 11:15 | Outpatient (RCR) | payer OTHER, SELFPAY ==
--- NOTE | 2021-02-19 16:08 | PT.OIE ---
Current Diagnoses Unspecified osteoarthritis, unspecified site (02/19/21) Other symptoms and signs involving the musculoskeletal system (02/19/21) Weakness (02/19/21) Other reduced mobility (02/19/21) Past Medical History (Last Updated 12/27/20 @ 12:38 by Deonte Ricks MD) Coccidioidomycosis, unspecified (11/11/10) DDD (degenerative disc disease), lumbar History of inguinal hernia repair (2016) History of spinal surgery (2015) History of spinal surgery (2016) Hyperlipidemia Hypertension Right inguinal hernia (02/2014) S/P TURP (status post transurethral resection of prostate) Spinal stenosis of lumbar region (06/17/15) Villous adenoma of colon (1998) Past Surgical History (Last Reviewed 11/29/20 @ 10:57 by Richardson Wray MD) History of inguinal hernia repair (2016) History of spinal surgery (2015) History of spinal surgery (2016) S/P TURP (status post transurethral resection of prostate) Status post arthroscopy (2010) Status post colectomy (1979) Status post colonoscopy (2009) Visit Care Team Role Provider Type Deonte Ricks MD Attending Provider Physician Family Provider Primary Care Provider Referring Provider Specialty: Internal Medicine Address: [address] [place] [address], [address], [facility] Email: [email or web address] Physical Therapy Initial Evaluation PT-OP-A Visit Information Start: 02/19/21 13:37 Freq: Status: Active Protocol: Document 02/19/21 15:12 (Rec: 02/19/21 16:08 [email or web address]) Out-Patient Physical Therapy Visit Information Visit Information Visit Type Initial Evaluation Visit Start Time 13:45 Visit Stop Time 14:45 Total Visit Minutes 60 Visit Number 04/28 Number of BULK MAIL CLERK Visits 0 Evaluation Information Evaluation Date 02/19/21 Precautions Precautions pt completed chemotherapy for his bladder cancer 6 weeks ago . chronic PA 2 back surgeries no ice pack PT-OP-B Current Condition Start: 02/19/21 13:37 Freq: Status: Active Protocol: Document 02/19/21 15:12 HH (Rec: 02/19/21 16:08 [email or web address]) Current Condition History of Current Condition Onset Date many years ago Current Complaints chronic pain for the whole body, morning stiffness, decreased stamina History of Current Condition Richardson is a 85yo male here for his chronic joint stiffness and pain, along with decreased stamina. He recently completed chemotherapy 6 weeks ago for his bladder cancer and he is in remission as his PCP. He will be reassessed in a couple months. His primary c /o his significant stiffness from shoulders, low back and knee. He has to take 3 ibuprofen and stay in hot tub every morning to get loosen up. He also c/o possible chemotherapy induced fatigue that he noticed his endurance has gone down. He can walk certain distance (grocery shop ) and feel fatigue drastically which causes him falling occasionally. (once every couple months) Pt has L1-L5 fusion 3-4 years ago and he has been getting cortisone injections on his R knee every 6 months to reduce pain. Current Functional Impairments (Reported) Functional Limitations- Mobility/Gait fatigue after grocery shop/ walking > 3000ft Personal Factors Other Personal Factors That May Effect pt completed chemotherapy for Therapy/Recovery his bladder cancer 6 weeks ago . chronic PA 2 back surgeries PT-OP-C Subjective Start: 02/19/21 13:37 Freq: Status: Active Protocol: Document 02/19/21 15:12 (Rec: 02/19/21 16:08 [email or web address]) OP-PT Pain Assessment Location generalized pain Pain Location Details shoulder, lowback, knee Intensity 6 Scale Used Numeric (0 - 10) Description Aching,Chronic,Dull,Tightness Frequency Constant Other Pain Aggravating Factors morning Pain Alleviating Factors Heat PT-OP-F Manual Assessment Start: 02/19/21 13:37 Freq: Status: Active Protocol: Document 02/19/21 15:12 HH (Rec: 02/19/21 16:08 [email or web address]) Manual Assessments Soft Tissue Assessment Soft Tissue Mobility Assessment hyperalgesia noted at his lumbar surgical site hyperalgesia noted at medial and inferior R knee significant tightness/ tonicity at bilateral pecs PT-OP-G Mobility & Gait Start: 02/19/21 13:37 Freq: Status: Active Protocol: Document 02/19/21 15:12 (Rec: 02/19/21 16:08 [email or web address]) OP Gait Assessment Comments Gait Comments pt walks with high R steppage gait with high knee flexion to loose up his knee PT-OP-H Neuro Start: 02/19/21 13:37 Freq: Status: Active Protocol: Document 02/19/21 15:12 HH (Rec: 02/19/21 16:08 [email or web address]) Sensation Evaluation Gross Sensation Gross Sensation WNL Deep Tendon Reflex & Clonus Assessment Deep Tendon Reflex Bilateral Achilles Deep Tendon Reflex 2+ Normal Bilateral Patellar Deep Tendon Reflex 2+ Normal PT-OP-J Posture/Palpation/Skin Start: 02/19/21 13:37 Freq: Status: Active Protocol: Document 02/19/21 15:12 HH (Rec: 02/19/21 16:08 [email or web address]) Posture Evaluation Position Standing Head/C-Spine Posture Forward Head T-Spine Posture Increased Kyphosis Shoulder Posture (L) Rounded,(R) Rounded Knee Posture (L) Excess Flexion,(R) Excess Flexion Comments Posture Comments pt is able to stand up straight with knee fully extended but reports getting tired with back PT-OP-K Range of Motion Start: 02/19/21 13:37 Freq: Status: Active Protocol: Document 02/19/21 15:12 HH (Rec: 02/19/21 16:08 [email or web address]) Shoulder Goniometric Range of Motion Shoulder Right Active Comments WFL able to reach overhead tightness and slight pain at top of shoulder Left Active Shoulder ROM WFL Yes Comments WFL able to reach overhead Hip Goniometric Range of Motion Hip Right Active Hip ROM WFL Yes Left Active Hip ROM WFL Yes Knee Goniometric Range of Motion Knee Right Knee ROM WFL Yes Left Knee ROM WFL Yes PT-OP-M Strength Start: 02/19/21 13:37 Freq: Status: Active Protocol: Document 02/19/21 15:12 HH (Rec: 02/19/21 16:08 [email or web address]) Shoulder Strength Shoulder Manual Muscle Testing Right Flexion 4+ Good+ Extension 4+ Good+ Abduction (C5) 4+ Good+ Left Flexion 4+ Good+ Extension 4+ Good+ Abduction (C5) 4+ Good+ Hip Strength Hip Manual Muscle Testing Right Flexion (L2) 4+ Good+ Extension (S1) 4+ Good+ Left Flexion (L2) 4+ Good+ Extension (S1) 4+ Good+ Knee Strength Knee Manual Muscle Testing Right Flexion (S2) 4+ Good+ Extension (L3) 4+ Good+ Left Flexion (S2) 4+ Good+ Extension (L3) 4+ Good+ PT-OP-Q Treatments Start: 02/19/21 13:37 Freq: Status: Active Protocol: Document 02/19/21 15:12 (Rec: 02/19/21 16:08 [email or web address]) Therapeutic Exercises Supine Exercises LTR Reps/Minutes 10x2 Comments for HEP knee to chest Supine Exercise Name unilateral Reps/Minutes 20sx 5 Comments for HEP PT-OP-T Assessment and Plan Start: 02/19/21 13:37 Freq: Status: Active Protocol: Document 02/19/21 15:12 (Rec: 02/19/21 16:08 [email or web address]) Physical Therapy Assessment Rehab Potential Rehabilitation Potential Good Evaluation Complexity Number of Personal Factors/Comorbidities 3 or More Number of Body Systems Impaired 4 or More Clinical Presentation at Evaluation Stable Impairments Impairments Activity Tolerance,Balance, Functional Activities, Functional Mobility,Gait,Pain, Posture,ROM,Soft Tissue Mobility,Strength Goals activity program Impairment pt does not have a conditioning program Short Term Goal (STG) pt will begin to participate 2 days of pool exercises and daily stretching routine. STG Duration 5 weeks Shelter Goal (LTG) pt will safely participate 2 pools days and 3 days for moderate intensity of strength training to improve his overall strength and posture. LTG Duration 10 weeks stiffness Impairment c/o significant stiffness at shoulders, knee and low back Short Term Goal (STG) pt will be demonstrate self efficacy to complete daily ROM routine to decrease his morning stiffness STG Duration 5 weeks Shelter Goal (LTG) pt will be reports decreased stiffness symptoms in the morning no more than 2 hours. LTG Duration 10 weeks chronic pain Impairment significant generalized pain 6 /10 throughout the body Short Term Goal (STG) pt will have decreased generalized pain to 4/10 throughout the body to improve his quality of life STG Duration 5 weeks Absorption Operator Goal (LTG) pt will have decreased generalized pain to 2 /10 throughout the body to improve his quality of life. LTG Duration 10 weeks 6 MWT Impairment will assess next session Assessment Summary Assessment Richardson is a 85 yo male here for his chronic pain, morning stiffness and chemotherapy induced fatigue. He completed chemotherapy for his bladder cancer 6 weeks ago and hes now in remission. (He will be reassess in a few months later by oncologist). Upon assessment, pt is extremely talkative and very aware of his concerns and symptoms which makes accurate assessment difficult. please refer to his pain diagram. He presents signs of centralized pain and arthritic pain & stiffness based on his subjective description. He presents fairly good overall AROM/PROM and strength grossly for both LEs and UEs. I was unable to assess his overall endurance with 6 MWT. He does present a significant flexed posture possibly d/t his extensive lumbar flexion L1-L5 . He does have the ability to restore his posture but he mentioned his back his weak. Although Richardson has multiple c /o, I believe he will benefit from aquatic therapy, gross gentle ROM routine and mod intensity related strengthening program. These approaches allow him to build his overall endurance and improve his joint health. However, this is possibly a long course of rehab d/t his complicated PMH and chronic pain pattern. Physical Therapy Plan Frequency and Duration Frequency of Treatment 2x/Week Duration of Treatment 10weeks Plan of Care Start Date 02/19/21 Plan of Care End Date 05/05/21 Therapeutic Interventions Therapeutic Interventions Aquatic Therapy,Balance Training,Gait Training,Home Exercise Program,Joint Mobilizations,Manual Therapy, Neuromuscular Re-education, Patient/Caregiver Education, Self-Care/Home Management,Soft Tissue Mobilization,Taping, Therapeutic Activities, Therapeutic Exercises Modalities Hot Packs,Traction- Mechanical Next Visit Focus/Plan Next Note Type Treatment Note Next Visit Plan 6MWT low impact ex, aquatic bike, stepper, recommend pt to acquire [place] swapna for morning stiffness postural restore , pec stretch in supine (lumbar surgery precautions) gentle ROM ex, LTR, knee to chest end with hot pack for shoulder , lumbar, knee
--- NOTE | 2021-02-22 10:45 | PT.OTN ---
Current Diagnoses Unspecified osteoarthritis, unspecified site (02/22/21) Other symptoms and signs involving the musculoskeletal system (02/22/21) Weakness (02/22/21) Other reduced mobility (02/22/21) Physical Therapy Treatment Note PT-OP-A Visit Information Start: 02/19/21 13:37 Freq: Status: Active Protocol: Document 02/22/21 09:52 SP (Rec: 02/22/21 11:40 SP [id number]) Out-Patient Physical Therapy Visit Information Visit Information Visit Type Treatment Note Visit Note OUTSOLE CEMENTER Reece attended and provided education in tx, under the direct supervision of AMIRAH Gudino. Pt. [place]. Did not have hearing aids in today. Pt. late due to car trouble. Visit Start Time 09:52 Visit Stop Time 10:45 Total Visit Minutes 53 Visit Number 05/29 Number of OUTSOLE CEMENTER Visits 1 Evaluation Information Evaluation Date 02/19/21 Precautions Precautions pt completed chemotherapy for his bladder cancer 6 weeks ago . chronic PA 2 back surgeries no ice pack PT-OP-B Current Condition Start: 02/19/21 13:37 Freq: Status: Active Protocol: Document 02/19/21 15:12 HH (Rec: 02/19/21 16:08 HH [email or web address]) Current Condition History of Current Condition Onset Date many years ago Current Complaints chronic pain for the whole body, morning stiffness, decreased stamina History of Current Condition Richardson is a 85yo male here for his chronic joint stiffness and pain, along with decreased stamina. He recently completed chemotherapy 6 weeks ago for his bladder cancer and he is in remission as his PCP. He will be reassessed in a couple months. His primary c /o his significant stiffness from shoulders, low back and knee. He has to take 3 ibuprofen and stay in hot tub every morning to get loosen up. He also c/o possible chemotherapy induced fatigue that he noticed his endurance has gone down. He can walk certain distance (grocery shop ) and feel fatigue drastically which causes him falling occasionally. (once every couple months) Pt has L1-L5 fusion 3-4 years ago and he has been getting cortisone injections on his R knee every 6 months to reduce pain. Current Functional Impairments (Reported) Functional Limitations- Mobility/Gait fatigue after grocery shop/ walking > 3000ft Personal Factors Other Personal Factors That May Effect pt completed chemotherapy for Therapy/Recovery his bladder cancer 6 weeks ago . chronic PA 2 back surgeries PT-OP-C Subjective Start: 02/19/21 13:37 Freq: Status: Active Protocol: Document 02/22/21 09:52 SP (Rec: 02/22/21 11:40 SP [id number]) OP-PT Subjective Patient Comments Patient Comments Pt. indicated that he used liniment this morning and is experiencing no pain. Stated that he uses mistletoe injections twice a week to stimulate his immune system. PT-OP-F Manual Assessment Start: 02/19/21 13:37 Freq: Status: Active Protocol: Document 02/19/21 15:12 HH (Rec: 02/19/21 16:08 [email or web address]) Manual Assessments Soft Tissue Assessment Soft Tissue Mobility Assessment hyperalgesia noted at his lumbar surgical site hyperalgesia noted at medial and inferior R knee significant tightness/ tonicity at bilateral pecs PT-OP-G Mobility & Gait Start: 02/19/21 13:37 Freq: Status: Active Protocol: Document 02/19/21 15:12 HH (Rec: 02/19/21 16:08 [email or web address]) OP Gait Assessment Comments Gait Comments pt walks with high R steppage gait with high knee flexion to loose up his knee PT-OP-H Neuro Start: 02/19/21 13:37 Freq: Status: Active Protocol: Document 02/19/21 15:12 HH (Rec: 02/19/21 16:08 [email or web address]) Sensation Evaluation Gross Sensation Gross Sensation WNL Deep Tendon Reflex & Clonus Assessment Deep Tendon Reflex Bilateral Achilles Deep Tendon Reflex 2+ Normal Bilateral Patellar Deep Tendon Reflex 2+ Normal PT-OP-J Posture/Palpation/Skin Start: 02/19/21 13:37 Freq: Status: Active Protocol: Document 02/19/21 15:12 HH (Rec: 02/19/21 16:08 [email or web address]) Posture Evaluation Position Standing Head/C-Spine Posture Forward Head T-Spine Posture Increased Kyphosis Shoulder Posture (L) Rounded,(R) Rounded Knee Posture (L) Excess Flexion,(R) Excess Flexion Comments Posture Comments pt is able to stand up straight with knee fully extended but reports getting tired with back PT-OP-K Range of Motion Start: 02/19/21 13:37 Freq: Status: Active Protocol: Document 02/19/21 15:12 HH (Rec: 02/19/21 16:08 [email or web address]) Shoulder Goniometric Range of Motion Shoulder Right Active Comments WFL able to reach overhead tightness and slight pain at top of shoulder Left Active Shoulder ROM WFL Yes Comments WFL able to reach overhead Hip Goniometric Range of Motion Hip Right Active Hip ROM WFL Yes Left Active Hip ROM WFL Yes Knee Goniometric Range of Motion Knee Right Knee ROM WFL Yes Left Knee ROM WFL Yes PT-OP-M Strength Start: 02/19/21 13:37 Freq: Status: Active Protocol: Document 02/19/21 15:12 HH (Rec: 02/19/21 16:08 [email or web address]) Shoulder Strength Shoulder Manual Muscle Testing Right Flexion 4+ Good+ Extension 4+ Good+ Abduction (C5) 4+ Good+ Left Flexion 4+ Good+ Extension 4+ Good+ Abduction (C5) 4+ Good+ Hip Strength Hip Manual Muscle Testing Right Flexion (L2) 4+ Good+ Extension (S1) 4+ Good+ Left Flexion (L2) 4+ Good+ Extension (S1) 4+ Good+ Knee Strength Knee Manual Muscle Testing Right Flexion (S2) 4+ Good+ Extension (L3) 4+ Good+ Left Flexion (S2) 4+ Good+ Extension (L3) 4+ Good+ PT-OP-Q Treatments Start: 02/19/21 13:37 Freq: Status: Active Protocol: Document 02/22/21 09:52 SP (Rec: 02/22/21 11:40 SP [id number]) Therapeutic Exercises Supine Exercises Anterior Pelvic Tilt Supine Exercise Name with legs bent and extended over pillow (added to HEP) Side bilateral Resistance AROM Equipment Used Towel roll from quartered towel at midback and under post thighs Comments Cues for pressing tailbone toward floor. Thoracic Lift Supine Exercise Name with head supported. LE extended with pillow under posterior thighs Side bilateral Resistance AROM- added to HEP Equipment Used Towel roll from quartered towel at midback, under head and upper thighs Reps/Minutes 5x 5 Comments Cues for lifting sternum/ scap retract glides w/ relaxing UE toward table. Anterior Thoracic stretch Supine Exercise Name relaxed over towel horizontal T8 (added to HEP) Resistance AROM Equipment Used Towel roll from quartered towel at midback Reps/Minutes 3 min Comments good feedback response- painfree knee to chest Supine Exercise Name unilateral and bilateral (HEP review) Side bilateral Reps/Minutes 2x 60 sec each Comments good feedback response- pain free Sitting Exercises posture Sitting Exercise Name tall posture (thoracic lift, anterior tilts neutral) Reps/Minutes 10 sec hold x5 Comments good feedback response and provided hands outs for recall Self-Care/Home Management Treatment Education Patient Education Body Mechanics,Pain Management ,Posture Other Education Briefly discussed sleeping alignment side and supine with use of pillow for back health and comfort already doing. Started conversation on sitting in chair alignment will need to address further when brings in requested pic of himself in chair via for carryover assist. Activities Self-Care/Home Management Activities OUTSOLE CEMENTER discussed aquatic therapy and pt very welcoming to adding to PT regimen until again. OUTSOLE CEMENTER sent message up to schedulers for adjusting appts for allowance 2x/wk POC including 1 land/ 1 pool weekly. PT-OP-T Assessment and Plan Start: 02/19/21 13:37 Freq: Status: Active Protocol: Document 02/22/21 09:52 SP (Rec: 02/22/21 11:40 SP [id number]) Physical Therapy Assessment Goals activity program Impairment pt does not have a conditioning program Short Term Goal (STG) pt will begin to participate 2 days of pool exercises and daily stretching routine. STG Duration 5 weeks Jail Goal (LTG) pt will safely participate 2 pools days and 3 days for moderate intensity of strength training to improve his overall strength and posture. LTG Duration 10 weeks stiffness Impairment c/o significant stiffness at shoulders, knee and low back Short Term Goal (STG) pt will be demonstrate self efficacy to complete daily ROM routine to decrease his morning stiffness STG Duration 5 weeks Cigar Tobacco Processing Supervisor Goal (LTG) pt will be reports decreased stiffness symptoms in the morning no more than 2 hours. LTG Duration 10 weeks chronic pain Impairment significant generalized pain 6 /10 throughout the body Short Term Goal (STG) pt will have decreased generalized pain to 4/10 throughout the body to improve his quality of life STG Duration 5 weeks Cigar Tobacco Processing Supervisor Goal (LTG) pt will have decreased generalized pain to 2 /10 throughout the body to improve his quality of life. LTG Duration 10 weeks 6 MWT Impairment will assess next session Assessment Summary Assessment Tx focused on stretching HEP with poor recall, provided cues and hand outs for recall along with gentle initiated anterior tilts, relaxed over towel roll mid thoracic and thoracic lift to improve postural alignment with report only little sore once came to sitting. Furthered instruction on sitting version with good carry over w/ cues, painfree. Pt requires time for understanding and cues for prooper TA and paraspinal facilitation with contact and verbal cuing at posterior chain tail bone toward celing , chest lift w/ gentle pressure into table with good carryover performance painfree. OUTSOLE CEMENTER provided postural alignment and amount of poundage on spine and LS muscular for self awareness for seated and standing awareness. Pt stated helpful and will makes copies for around house to help remind him to improve mobility. Pt reports currently lays over rolled towel at abdomen which helps give relief to back but didn't assess during tx. Check next tx. Physical Therapy Plan Frequency and Duration Frequency of Treatment 2x/Week Duration of Treatment 10weeks Plan of Care Start Date 02/19/21 Plan of Care End Date 05/05/21 Therapeutic Interventions Therapeutic Interventions Aquatic Therapy,Balance Training,Gait Training,Home Exercise Program,Joint Mobilizations,Manual Therapy, Neuromuscular Re-education, Patient/Caregiver Education, Self-Care/Home Management,Soft Tissue Mobilization,Taping, Therapeutic Activities, Therapeutic Exercises Modalities Hot Packs,Traction- Mechanical Next Visit Focus/Plan Next Note Type Treatment Note Next Visit Plan Review: HEP supine/seated, assess seated posture w/ requested pic via . Add self STMs ball on wall for back assist. POC: 6MWT low impact ex, aquatic bike, stepper, recommend pt to acquire [place] swapna for morning stiffness postural restore , pec stretch in supine (lumbar surgery precautions) gentle ROM ex, LTR, knee to chest end with hot pack (No CP, doesn;t tolerate) for shoulder , lumbar, knee
--- NOTE | 2021-02-26 14:40 | PT.OTN ---
Current Diagnoses Unspecified osteoarthritis, unspecified site (02/26/21) Other symptoms and signs involving the musculoskeletal system (02/26/21) Weakness (02/26/21) Other reduced mobility (02/26/21) Physical Therapy Treatment Note PT-OP-A Visit Information Start: 02/19/21 13:37 Freq: Status: Active Protocol: Document 02/26/21 13:47 HH (Rec: 02/26/21 14:40 [id number]) Out-Patient Physical Therapy Visit Information Visit Information Visit Type Treatment Note Visit Start Time 09:52 Visit Stop Time 10:45 Total Visit Minutes 53 Visit Number 05/29 Number of CONTRACTOR GENERAL ENGINEERING Visits 1 PT-OP-B Current Condition Start: 02/19/21 13:37 Freq: Status: Active Protocol: Document 02/19/21 15:12 HH (Rec: 02/19/21 16:08 [email or web address]) Current Condition History of Current Condition Onset Date many years ago Current Complaints chronic pain for the whole body, morning stiffness, decreased stamina History of Current Condition Richardson is a 85yo male here for his chronic joint stiffness and pain, along with decreased stamina. He recently completed chemotherapy 6 weeks ago for his bladder cancer and he is in remission as his PCP. He will be reassessed in a couple months. His primary c /o his significant stiffness from shoulders, low back and knee. He has to take 3 ibuprofen and stay in hot tub every morning to get loosen up. He also c/o possible chemotherapy induced fatigue that he noticed his endurance has gone down. He can walk certain distance (grocery shop ) and feel fatigue drastically which causes him falling occasionally. (once every couple months) Pt has L1-L5 fusion 3-4 years ago and he has been getting cortisone injections on his R knee every 6 months to reduce pain. Current Functional Impairments (Reported) Functional Limitations- Mobility/Gait fatigue after grocery shop/ walking > 3000ft Personal Factors Other Personal Factors That May Effect pt completed chemotherapy for Therapy/Recovery his bladder cancer 6 weeks ago . chronic PA 2 back surgeries PT-OP-C Subjective Start: 02/19/21 13:37 Freq: Status: Active Protocol: Document 02/26/21 13:47 HH (Rec: 02/26/21 14:40 [id number]) OP-PT Subjective Patient Comments Patient Comments My back is hurting today cause i didnt wear the back brace. My energy level is not too bad PT-OP-F Manual Assessment Start: 02/19/21 13:37 Freq: Status: Active Protocol: Document 02/19/21 15:12 HH (Rec: 02/19/21 16:08 [email or web address]) Manual Assessments Soft Tissue Assessment Soft Tissue Mobility Assessment hyperalgesia noted at his lumbar surgical site hyperalgesia noted at medial and inferior R knee significant tightness/ tonicity at bilateral pecs PT-OP-G Mobility & Gait Start: 02/19/21 13:37 Freq: Status: Active Protocol: Document 02/19/21 15:12 HH (Rec: 02/19/21 16:08 [email or web address]) OP Gait Assessment Comments Gait Comments pt walks with high R steppage gait with high knee flexion to loose up his knee PT-OP-H Neuro Start: 02/19/21 13:37 Freq: Status: Active Protocol: Document 02/19/21 15:12 HH (Rec: 02/19/21 16:08 [email or web address]) Sensation Evaluation Gross Sensation Gross Sensation WNL Deep Tendon Reflex & Clonus Assessment Deep Tendon Reflex Bilateral Achilles Deep Tendon Reflex 2+ Normal Bilateral Patellar Deep Tendon Reflex 2+ Normal PT-OP-J Posture/Palpation/Skin Start: 02/19/21 13:37 Freq: Status: Active Protocol: Document 02/19/21 15:12 HH (Rec: 02/19/21 16:08 [email or web address]) Posture Evaluation Position Standing Head/C-Spine Posture Forward Head T-Spine Posture Increased Kyphosis Shoulder Posture (L) Rounded,(R) Rounded Knee Posture (L) Excess Flexion,(R) Excess Flexion Comments Posture Comments pt is able to stand up straight with knee fully extended but reports getting tired with back PT-OP-K Range of Motion Start: 02/19/21 13:37 Freq: Status: Active Protocol: Document 02/19/21 15:12 HH (Rec: 02/19/21 16:08 [email or web address]) Shoulder Goniometric Range of Motion Shoulder Right Active Comments WFL able to reach overhead tightness and slight pain at top of shoulder Left Active Shoulder ROM WFL Yes Comments WFL able to reach overhead Hip Goniometric Range of Motion Hip Right Active Hip ROM WFL Yes Left Active Hip ROM WFL Yes Knee Goniometric Range of Motion Knee Right Knee ROM WFL Yes Left Knee ROM WFL Yes PT-OP-M Strength Start: 02/19/21 13:37 Freq: Status: Active Protocol: Document 02/19/21 15:12 HH (Rec: 02/19/21 16:08 [email or web address]) Shoulder Strength Shoulder Manual Muscle Testing Right Flexion 4+ Good+ Extension 4+ Good+ Abduction (C5) 4+ Good+ Left Flexion 4+ Good+ Extension 4+ Good+ Abduction (C5) 4+ Good+ Hip Strength Hip Manual Muscle Testing Right Flexion (L2) 4+ Good+ Extension (S1) 4+ Good+ Left Flexion (L2) 4+ Good+ Extension (S1) 4+ Good+ Knee Strength Knee Manual Muscle Testing Right Flexion (S2) 4+ Good+ Extension (L3) 4+ Good+ Left Flexion (S2) 4+ Good+ Extension (L3) 4+ Good+ PT-OP-Q Treatments Start: 02/19/21 13:37 Freq: Status: Active Protocol: Document 02/26/21 13:47 (Rec: 02/26/21 14:40 [id number]) Cardio Equipment Recumbent Stepper (Sci-Fit) Duration (Minutes) 4 Resistance 3 Seat Position 15 Therapeutic Exercises Supine Exercises Anterior Thoracic stretch Supine Exercise Name relaxed over towel horizontal T8 (added to HEP) Resistance AROM Equipment Used Towel roll from quartered towel at midback Reps/Minutes 3 min Comments good feedback response- painfree Sitting Exercises pec stretch Sitting Exercise Name arms behind back Side bilateral Reps/Minutes 20s x5 Comments chest up, for HEP posture Sitting Exercise Name tall posture (thoracic lift, anterior tilts neutral) Reps/Minutes 10 sec hold x5 Comments good feedback response and provided hands outs for recall Manual Therapy Treatment Soft Tissue Mobilization scar mob Mobilization Type Myofascial Release Intensity/Depth Moderate Body Position Prone Comments significnat tonicity and restrictions noted around surgical scars paraspinals Body Location thoracic and lumbar Mobilization Type Myofascial Release,Sustained Pressure,Trigger Point Release Intensity/Depth Moderate Body Position Prone Joint Mobilizations PA Joint lower thoracic Grade II Body Position Prone PT-OP-R Modalities Start: 02/19/21 13:37 Freq: Status: Active Protocol: Document 02/26/21 13:47 (Rec: 02/26/21 14:40 [id number]) Hot Pack/Cold Pack Treatment Hot Pack Location cervical and lumbar Patient Position Hooklying Treatment Duration (minutes) 15 PT-OP-T Assessment and Plan Start: 02/19/21 13:37 Freq: Status: Active Protocol: Document 02/26/21 13:47 HH (Rec: 02/26/21 14:40 [id number]) Physical Therapy Assessment Goals activity program Impairment pt does not have a conditioning program Short Term Goal (STG) pt will begin to participate 2 days of pool exercises and daily stretching routine. STG Duration 5 weeks Long-Term Goal (LTG) pt will safely participate 2 pools days and 3 days for moderate intensity of strength training to improve his overall strength and posture. LTG Duration 10 weeks stiffness Impairment c/o significant stiffness at shoulders, knee and low back Short Term Goal (STG) pt will be demonstrate self efficacy to complete daily ROM routine to decrease his morning stiffness STG Duration 5 weeks Long-Term Goal (LTG) pt will be reports decreased stiffness symptoms in the morning no more than 2 hours. LTG Duration 10 weeks chronic pain Impairment significant generalized pain 6 /10 throughout the body Short Term Goal (STG) pt will have decreased generalized pain to 4/10 throughout the body to improve his quality of life STG Duration 5 weeks Long-Term Goal (LTG) pt will have decreased generalized pain to 2 /10 throughout the body to improve his quality of life. LTG Duration 10 weeks 6 MWT Impairment will assess next session Assessment Summary Assessment pt sheri session very well. Spent time decreasing his muscle tonicity at pecs, paraspinals to facilitate up right posture. Added pec stretch in seated position. Will f/u with ihm next visit Physical Therapy Plan Frequency and Duration Frequency of Treatment 2x/Week Duration of Treatment 10weeks Plan of Care Start Date 02/19/21 Plan of Care End Date 05/05/21 Therapeutic Interventions Therapeutic Interventions Aquatic Therapy,Balance Training,Gait Training,Home Exercise Program,Joint Mobilizations,Manual Therapy, Neuromuscular Re-education, Patient/Caregiver Education, Self-Care/Home Management,Soft Tissue Mobilization,Taping, Therapeutic Activities, Therapeutic Exercises Modalities Hot Packs,Traction- Mechanical Next Visit Focus/Plan Next Note Type Treatment Note Next Visit Plan Review: HEP supine/seated, assess seated posture w/ requested pic via . Add self STMs ball on wall for back assist. POC: 6MWT low impact ex, aquatic bike, stepper, recommend pt to acquire [place] swapna for morning stiffness postural restore , pec stretch in supine (lumbar surgery precautions) gentle ROM ex, LTR, knee to chest end with hot pack (No CP, doesn;t tolerate) for shoulder , lumbar, knee
--- NOTE | 2021-03-02 09:50 | PT.OTN ---
Current Diagnoses Unspecified osteoarthritis, unspecified site (03/02/21) Other symptoms and signs involving the musculoskeletal system (03/02/21) Weakness (03/02/21) Other reduced mobility (03/02/21) Physical Therapy Treatment Note PT-OP-A Visit Information Start: 02/19/21 13:37 Freq: Status: Active Protocol: Document 03/02/21 09:04 SP (Rec: 03/02/21 09:50 SP [id number]) Out-Patient Physical Therapy Visit Information Visit Information Visit Type Treatment Note Visit Start Time 09:04 Visit Stop Time 09:50 Total Visit Minutes 46 Visit Number 06/26 Number of SNOWBOARDING INSTRUCTOR Visits 2 Evaluation Information Evaluation Date 02/19/21 Precautions Precautions pt completed chemotherapy for his bladder cancer 6 weeks ago . chronic PA 2 back surgeries no ice pack PT-OP-B Current Condition Start: 02/19/21 13:37 Freq: Status: Active Protocol: Document 02/19/21 15:12 HH (Rec: 02/19/21 16:08 HH [email or web address]) Current Condition History of Current Condition Onset Date many years ago Current Complaints chronic pain for the whole body, morning stiffness, decreased stamina History of Current Condition Richardson is a 85yo male here for his chronic joint stiffness and pain, along with decreased stamina. He recently completed chemotherapy 6 weeks ago for his bladder cancer and he is in remission as his PCP. He will be reassessed in a couple months. His primary c /o his significant stiffness from shoulders, low back and knee. He has to take 3 ibuprofen and stay in hot tub every morning to get loosen up. He also c/o possible chemotherapy induced fatigue that he noticed his endurance has gone down. He can walk certain distance (grocery shop ) and feel fatigue drastically which causes him falling occasionally. (once every couple months) Pt has L1-L5 fusion 3-4 years ago and he has been getting cortisone injections on his R knee every 6 months to reduce pain. Current Functional Impairments (Reported) Functional Limitations- Mobility/Gait fatigue after grocery shop/ walking > 3000ft Personal Factors Other Personal Factors That May Effect pt completed chemotherapy for Therapy/Recovery his bladder cancer 6 weeks ago . chronic PA 2 back surgeries PT-OP-C Subjective Start: 02/19/21 13:37 Freq: Status: Active Protocol: Document 03/02/21 09:04 SP (Rec: 03/02/21 09:50 SP [id number]) OP-PT Subjective Patient Comments Patient Comments Pt stated was little sore after last tx but feels was a good thing. PT-OP-F Manual Assessment Start: 02/19/21 13:37 Freq: Status: Active Protocol: Document 02/19/21 15:12 HH (Rec: 02/19/21 16:08 [email or web address]) Manual Assessments Soft Tissue Assessment Soft Tissue Mobility Assessment hyperalgesia noted at his lumbar surgical site hyperalgesia noted at medial and inferior R knee significant tightness/ tonicity at bilateral pecs PT-OP-G Mobility & Gait Start: 02/19/21 13:37 Freq: Status: Active Protocol: Document 02/19/21 15:12 HH (Rec: 02/19/21 16:08 [email or web address]) OP Gait Assessment Comments Gait Comments pt walks with high R steppage gait with high knee flexion to loose up his knee PT-OP-H Neuro Start: 02/19/21 13:37 Freq: Status: Active Protocol: Document 02/19/21 15:12 HH (Rec: 02/19/21 16:08 [email or web address]) Sensation Evaluation Gross Sensation Gross Sensation WNL Deep Tendon Reflex & Clonus Assessment Deep Tendon Reflex Bilateral Achilles Deep Tendon Reflex 2+ Normal Bilateral Patellar Deep Tendon Reflex 2+ Normal PT-OP-J Posture/Palpation/Skin Start: 02/19/21 13:37 Freq: Status: Active Protocol: Document 02/19/21 15:12 HH (Rec: 02/19/21 16:08 [email or web address]) Posture Evaluation Position Standing Head/C-Spine Posture Forward Head T-Spine Posture Increased Kyphosis Shoulder Posture (L) Rounded,(R) Rounded Knee Posture (L) Excess Flexion,(R) Excess Flexion Comments Posture Comments pt is able to stand up straight with knee fully extended but reports getting tired with back PT-OP-K Range of Motion Start: 02/19/21 13:37 Freq: Status: Active Protocol: Document 02/19/21 15:12 HH (Rec: 02/19/21 16:08 [email or web address]) Shoulder Goniometric Range of Motion Shoulder Right Active Comments WFL able to reach overhead tightness and slight pain at top of shoulder Left Active Shoulder ROM WFL Yes Comments WFL able to reach overhead Hip Goniometric Range of Motion Hip Right Active Hip ROM WFL Yes Left Active Hip ROM WFL Yes Knee Goniometric Range of Motion Knee Right Knee ROM WFL Yes Left Knee ROM WFL Yes PT-OP-M Strength Start: 02/19/21 13:37 Freq: Status: Active Protocol: Document 02/19/21 15:12 HH (Rec: 02/19/21 16:08 HH [email or web address]) Shoulder Strength Shoulder Manual Muscle Testing Right Flexion 4+ Good+ Extension 4+ Good+ Abduction (C5) 4+ Good+ Left Flexion 4+ Good+ Extension 4+ Good+ Abduction (C5) 4+ Good+ Hip Strength Hip Manual Muscle Testing Right Flexion (L2) 4+ Good+ Extension (S1) 4+ Good+ Left Flexion (L2) 4+ Good+ Extension (S1) 4+ Good+ Knee Strength Knee Manual Muscle Testing Right Flexion (S2) 4+ Good+ Extension (L3) 4+ Good+ Left Flexion (S2) 4+ Good+ Extension (L3) 4+ Good+ PT-OP-Q Treatments Start: 02/19/21 13:37 Freq: Status: Active Protocol: Document 03/02/21 09:04 SP (Rec: 03/02/21 09:50 SP [id number]) Cardio Equipment Recumbent Elliptical (Biodex) Duration (Minutes) 8 Resistance 5 Seat Position 14 Other UE/ LEs, 616 total steps, 40 RPM Therapeutic Exercises Supine Exercises Anterior Thoracic stretch Supine Exercise Name pec stretch various ranges arm side> over head Resistance AROM Equipment Used over noodle, knees bent (added to HEP) Reps/Minutes 5 min Comments good feedback response- painfree Sitting Exercises sit<>stands Sitting Exercise Name added to HEP Resistance 18 chair Equipment Used arm across chest cued chest lift w/ hip hinge Reps/Minutes 2x5 Comments improved eccentric descent pec stretch Sitting Exercise Name arms behind back Side bilateral Reps/Minutes 20s x5 Comments chest up, for HEP posture Sitting Exercise Name tall posture (thoracic lift, anterior tilts neutral) Reps/Minutes 10 sec hold x5 Comments good feedback response and provided hands outs for recall Manual Therapy Treatment Soft Tissue Mobilization scar mob Body Location over 2 pillows Mobilization Type Myofascial Release Intensity/Depth Moderate Body Position Prone Comments tonicity and restrictions noted around surgical scars paraspinals Body Location thoracic and lumbar Mobilization Type Myofascial Release,Sustained Pressure,Trigger Point Release Intensity/Depth Moderate Body Position Prone Comments good feedback response Joint Mobilizations PA Joint lower thoracic Grade I Body Position Prone Comments painfree, gentle mobility PT-OP-R Modalities Start: 02/19/21 13:37 Freq: Status: Active Protocol: Document 02/26/21 13:47 HH (Rec: 02/26/21 14:40 HH [id number]) Hot Pack/Cold Pack Treatment Hot Pack Location cervical and lumbar Patient Position Hooklying Treatment Duration (minutes) 15 PT-OP-T Assessment and Plan Start: 02/19/21 13:37 Freq: Status: Active Protocol: Document 03/02/21 09:04 SP (Rec: 03/02/21 09:50 SP [id number]) Physical Therapy Assessment Goals activity program Impairment pt does not have a conditioning program Short Term Goal (STG) pt will begin to participate 2 days of pool exercises and daily stretching routine. STG Duration 5 weeks Boat Tester Goal (LTG) pt will safely participate 2 pools days and 3 days for moderate intensity of strength training to improve his overall strength and posture. LTG Duration 10 weeks stiffness Impairment c/o significant stiffness at shoulders, knee and low back Short Term Goal (STG) pt will be demonstrate self efficacy to complete daily ROM routine to decrease his morning stiffness STG Duration 5 weeks Correction Goal (LTG) pt will be reports decreased stiffness symptoms in the morning no more than 2 hours. LTG Duration 10 weeks chronic pain Impairment significant generalized pain 6 /10 throughout the body Short Term Goal (STG) pt will have decreased generalized pain to 4/10 throughout the body to improve his quality of life STG Duration 5 weeks Boat Tester Goal (LTG) pt will have decreased generalized pain to 2 /10 throughout the body to improve his quality of life. LTG Duration 10 weeks 6 MWT Impairment will assess next session Assessment Summary Assessment Pt responded well to manual prone, Intiated pec stretch in supine over noodle on floor with ability to get down/ up use of contact table and floor. Good response to pec stretch supine over noodle various UE ranges, improved neck alignment as time on noodle, good stretch feedback to pec/ abdominals painfree. Improved posture once came to standing. Initiated sit<> stands with hip hinge posture arms across chest slow descent all way to chair and reviewed posture arms behind back, improved for and demonstration. Physical Therapy Plan Frequency and Duration Frequency of Treatment 2x/Week Duration of Treatment 10weeks Plan of Care Start Date 02/19/21 Plan of Care End Date 05/05/21 Therapeutic Interventions Therapeutic Interventions Aquatic Therapy,Balance Training,Gait Training,Home Exercise Program,Joint Mobilizations,Manual Therapy, Neuromuscular Re-education, Patient/Caregiver Education, Self-Care/Home Management,Soft Tissue Mobilization,Taping, Therapeutic Activities, Therapeutic Exercises Modalities Hot Packs,Traction- Mechanical Next Visit Focus/Plan Next Note Type Treatment Note Next Visit Plan Review: pec stretch over noodle on floor, if ok pec stretch add Ts, Xs, FF [place] AROM . Ask if has pic of Assess seated posture home chair w/ requested pic via . Add self STMs ball on wall for back assist. POC: 6MWT low impact ex, aquatic bike, stepper, recommend pt to acquire [place] swapna for morning stiffness postural restore , (lumbar surgery precautions) gentle ROM ex, LTR, knee to chest end with hot pack (No CP, doesn;t tolerate) for shoulder , lumbar, knee
--- NOTE | 2021-03-08 12:11 | PT.OTN ---
Current Diagnoses Unspecified osteoarthritis, unspecified site (03/08/21) Other symptoms and signs involving the musculoskeletal system (03/08/21) Weakness (03/08/21) Other reduced mobility (03/08/21) Physical Therapy Treatment Note PT-OP-A Visit Information Start: 02/19/21 13:37 Freq: Status: Active Protocol: Document 03/08/21 11:26 HH (Rec: 03/08/21 12:11 [id number]) Out-Patient Physical Therapy Visit Information Visit Information Visit Type Treatment Note Visit Start Time 11:20 Visit Stop Time 12:15 Total Visit Minutes 55 Visit Number 07/27 Number of LEAD PRESSMAN Visits 0 PT-OP-B Current Condition Start: 02/19/21 13:37 Freq: Status: Active Protocol: Document 02/19/21 15:12 HH (Rec: 02/19/21 16:08 [email or web address]) Current Condition History of Current Condition Onset Date many years ago Current Complaints chronic pain for the whole body, morning stiffness, decreased stamina History of Current Condition Richardson is a 85yo male here for his chronic joint stiffness and pain, along with decreased stamina. He recently completed chemotherapy 6 weeks ago for his bladder cancer and he is in remission as his PCP. He will be reassessed in a couple months. His primary c /o his significant stiffness from shoulders, low back and knee. He has to take 3 ibuprofen and stay in hot tub every morning to get loosen up. He also c/o possible chemotherapy induced fatigue that he noticed his endurance has gone down. He can walk certain distance (grocery shop ) and feel fatigue drastically which causes him falling occasionally. (once every couple months) Pt has L1-L5 fusion 3-4 years ago and he has been getting cortisone injections on his R knee every 6 months to reduce pain. Current Functional Impairments (Reported) Functional Limitations- Mobility/Gait fatigue after grocery shop/ walking > 3000ft Personal Factors Other Personal Factors That May Effect pt completed chemotherapy for Therapy/Recovery his bladder cancer 6 weeks ago . chronic PA 2 back surgeries PT-OP-C Subjective Start: 02/19/21 13:37 Freq: Status: Active Protocol: Document 03/08/21 11:26 HH (Rec: 03/08/21 12:11 [id number]) OP-PT Subjective Patient Comments Patient Comments I want more regarding my energy level. My pain level are not bad but not having good energy is pain in my butt . Patient Reported Progress Improving PT-OP-F Manual Assessment Start: 02/19/21 13:37 Freq: Status: Active Protocol: Document 02/19/21 15:12 HH (Rec: 02/19/21 16:08 [email or web address]) Manual Assessments Soft Tissue Assessment Soft Tissue Mobility Assessment hyperalgesia noted at his lumbar surgical site hyperalgesia noted at medial and inferior R knee significant tightness/ tonicity at bilateral pecs PT-OP-G Mobility & Gait Start: 02/19/21 13:37 Freq: Status: Active Protocol: Document 02/19/21 15:12 HH (Rec: 02/19/21 16:08 [email or web address]) OP Gait Assessment Comments Gait Comments pt walks with high R steppage gait with high knee flexion to loose up his knee PT-OP-H Neuro Start: 02/19/21 13:37 Freq: Status: Active Protocol: Document 02/19/21 15:12 HH (Rec: 02/19/21 16:08 [email or web address]) Sensation Evaluation Gross Sensation Gross Sensation WNL Deep Tendon Reflex & Clonus Assessment Deep Tendon Reflex Bilateral Achilles Deep Tendon Reflex 2+ Normal Bilateral Patellar Deep Tendon Reflex 2+ Normal PT-OP-J Posture/Palpation/Skin Start: 02/19/21 13:37 Freq: Status: Active Protocol: Document 02/19/21 15:12 HH (Rec: 02/19/21 16:08 [email or web address]) Posture Evaluation Position Standing Head/C-Spine Posture Forward Head T-Spine Posture Increased Kyphosis Shoulder Posture (L) Rounded,(R) Rounded Knee Posture (L) Excess Flexion,(R) Excess Flexion Comments Posture Comments pt is able to stand up straight with knee fully extended but reports getting tired with back PT-OP-K Range of Motion Start: 02/19/21 13:37 Freq: Status: Active Protocol: Document 02/19/21 15:12 HH (Rec: 02/19/21 16:08 [email or web address]) Shoulder Goniometric Range of Motion Shoulder Right Active Comments WFL able to reach overhead tightness and slight pain at top of shoulder Left Active Shoulder ROM WFL Yes Comments WFL able to reach overhead Hip Goniometric Range of Motion Hip Right Active Hip ROM WFL Yes Left Active Hip ROM WFL Yes Knee Goniometric Range of Motion Knee Right Knee ROM WFL Yes Left Knee ROM WFL Yes PT-OP-M Strength Start: 02/19/21 13:37 Freq: Status: Active Protocol: Document 02/19/21 15:12 HH (Rec: 02/19/21 16:08 [email or web address]) Shoulder Strength Shoulder Manual Muscle Testing Right Flexion 4+ Good+ Extension 4+ Good+ Abduction (C5) 4+ Good+ Left Flexion 4+ Good+ Extension 4+ Good+ Abduction (C5) 4+ Good+ Hip Strength Hip Manual Muscle Testing Right Flexion (L2) 4+ Good+ Extension (S1) 4+ Good+ Left Flexion (L2) 4+ Good+ Extension (S1) 4+ Good+ Knee Strength Knee Manual Muscle Testing Right Flexion (S2) 4+ Good+ Extension (L3) 4+ Good+ Left Flexion (S2) 4+ Good+ Extension (L3) 4+ Good+ PT-OP-Q Treatments Start: 02/19/21 13:37 Freq: Status: Active Protocol: Document 03/08/21 11:26 (Rec: 03/08/21 12:11 [id number]) Cardio Equipment Recumbent Stepper (Sci-Fit) Duration (Minutes) 4 Resistance 3 Seat Position 15 Therapeutic Exercises Supine Exercises Anterior Thoracic stretch Supine Exercise Name pec stretch various ranges arm side> over head Resistance AROM Equipment Used over noodle, knees bent (added to HEP) Reps/Minutes 5 min Comments good feedback response- painfree Sitting Exercises pec stretch Sitting Exercise Name arms behind back Side bilateral Reps/Minutes 20s x5 Comments chest up, for HEP posture Sitting Exercise Name tall posture (thoracic lift, anterior tilts neutral) Reps/Minutes 10 sec hold x5 Comments good feedback response and provided hands outs for recall Manual Therapy Treatment Soft Tissue Mobilization scar mob Body Location over 2 pillows Mobilization Type Myofascial Release Intensity/Depth Moderate Body Position Prone Comments tonicity and restrictions noted around surgical scars paraspinals Body Location thoracic and lumbar Mobilization Type Myofascial Release,Sustained Pressure,Trigger Point Release Intensity/Depth Moderate Body Position Prone Comments good feedback response Joint Mobilizations PA Joint lower thoracic Grade I Body Position Prone Comments painfree, gentle mobility painful at upper thoracic PT-OP-R Modalities Start: 02/19/21 13:37 Freq: Status: Active Protocol: Document 03/08/21 11:26 HH (Rec: 03/08/21 12:11 [id number]) Hot Pack/Cold Pack Treatment Hot Pack Location cervical and lumbar Patient Position Hooklying Treatment Duration (minutes) 15 PT-OP-T Assessment and Plan Start: 02/19/21 13:37 Freq: Status: Active Protocol: Document 03/08/21 11:26 (Rec: 03/08/21 12:11 [id number]) Physical Therapy Assessment Goals activity program Impairment pt does not have a conditioning program Short Term Goal (STG) pt will begin to participate 2 days of pool exercises and daily stretching routine. STG Duration 5 weeks Revenue Research Analyst Goal (LTG) pt will safely participate 2 pools days and 3 days for moderate intensity of strength training to improve his overall strength and posture. LTG Duration 10 weeks stiffness Impairment c/o significant stiffness at shoulders, knee and low back Short Term Goal (STG) pt will be demonstrate self efficacy to complete daily ROM routine to decrease his morning stiffness STG Duration 5 weeks Revenue Research Analyst Goal (LTG) pt will be reports decreased stiffness symptoms in the morning no more than 2 hours. LTG Duration 10 weeks chronic pain Impairment significant generalized pain 6 /10 throughout the body Short Term Goal (STG) pt will have decreased generalized pain to 4/10 throughout the body to improve his quality of life STG Duration 5 weeks Jail Goal (LTG) pt will have decreased generalized pain to 2 /10 throughout the body to improve his quality of life. LTG Duration 10 weeks 6 MWT Impairment will assess next session Assessment Summary Assessment pt reports his pain is not as significant in general but major c/o is his energy level. He stated not having energy is painful to me. I recommended his POC shoulder focus on building his overall endurance and developing a exercise routine. Physical Therapy Plan Frequency and Duration Frequency of Treatment 2x/Week Duration of Treatment 10weeks Plan of Care Start Date 02/19/21 Plan of Care End Date 05/05/21 Therapeutic Interventions Therapeutic Interventions Aquatic Therapy,Balance Training,Gait Training,Home Exercise Program,Joint Mobilizations,Manual Therapy, Neuromuscular Re-education, Patient/Caregiver Education, Self-Care/Home Management,Soft Tissue Mobilization,Taping, Therapeutic Activities, Therapeutic Exercises Modalities Hot Packs,Traction- Mechanical Next Visit Focus/Plan Next Note Type Treatment Note Next Visit Plan Review: pec stretch over noodle on floor, if ok pec stretch add Ts, Xs, FF [place] AROM . Ask if has pic of Assess seated posture home chair w/ requested pic via . Add self STMs ball on wall for back assist. POC: 6MWT low impact ex, aquatic bike, stepper, recommend pt to acquire [place] swapna for morning stiffness postural restore , (lumbar surgery precautions) gentle ROM ex, LTR, knee to chest end with hot pack (No CP, doesn;t tolerate) for shoulder , lumbar, knee
--- NOTE | 2021-03-23 13:10 | PT.OTN ---
Current Diagnoses Unspecified osteoarthritis, unspecified site (03/23/21) Other symptoms and signs involving the musculoskeletal system (03/23/21) Weakness (03/23/21) Other reduced mobility (03/23/21) Physical Therapy Treatment Note PT-OP-A Visit Information Start: 02/19/21 13:37 Freq: Status: Active Protocol: Document 03/23/21 12:15 SP (Rec: 03/23/21 13:35 SP [id number]) Out-Patient Physical Therapy Visit Information Visit Information Visit Type Treatment Note Visit Start Time 12:15 Visit Stop Time 13:10 Total Visit Minutes 55 Visit Number 08/26 Number of REAL TIME OPERATOR Visits 1 Evaluation Information Evaluation Date 02/19/21 Precautions Precautions pt completed chemotherapy for his bladder cancer 6 weeks ago . chronic PA 2 back surgeries no ice pack PT-OP-B Current Condition Start: 02/19/21 13:37 Freq: Status: Active Protocol: Document 02/19/21 15:12 HH (Rec: 02/19/21 16:08 HH [email or web address]) Current Condition History of Current Condition Onset Date many years ago Current Complaints chronic pain for the whole body, morning stiffness, decreased stamina History of Current Condition Richardson is a 85yo male here for his chronic joint stiffness and pain, along with decreased stamina. He recently completed chemotherapy 6 weeks ago for his bladder cancer and he is in remission as his PCP. He will be reassessed in a couple months. His primary c /o his significant stiffness from shoulders, low back and knee. He has to take 3 ibuprofen and stay in hot tub every morning to get loosen up. He also c/o possible chemotherapy induced fatigue that he noticed his endurance has gone down. He can walk certain distance (grocery shop ) and feel fatigue drastically which causes him falling occasionally. (once every couple months) Pt has L1-L5 fusion 3-4 years ago and he has been getting cortisone injections on his R knee every 6 months to reduce pain. Current Functional Impairments (Reported) Functional Limitations- Mobility/Gait fatigue after grocery shop/ walking > 3000ft Personal Factors Other Personal Factors That May Effect pt completed chemotherapy for Therapy/Recovery his bladder cancer 6 weeks ago . chronic PA 2 back surgeries PT-OP-C Subjective Start: 02/19/21 13:37 Freq: Status: Active Protocol: Document 03/23/21 12:15 SP (Rec: 03/23/21 13:35 SP [id number]) OP-PT Subjective Patient Comments Patient Comments Pt reported feeling better after PT txs, not seeing significant improvements since started PT but know haven't been here as much as need to by with busy schedule, hoping to be seen more regularly come the new year. I have been gone out of town since last tx and didn't do my exercises as much as could have. I start at the pool this Monday but no more appts until after the new year due to family in town and will be to busy. I will try to do my best and perform exercises give to me while not here to improved posture. PT-OP-F Manual Assessment Start: 02/19/21 13:37 Freq: Status: Active Protocol: Document 02/19/21 15:12 HH (Rec: 02/19/21 16:08 [email or web address]) Manual Assessments Soft Tissue Assessment Soft Tissue Mobility Assessment hyperalgesia noted at his lumbar surgical site hyperalgesia noted at medial and inferior R knee significant tightness/ tonicity at bilateral pecs PT-OP-G Mobility & Gait Start: 02/19/21 13:37 Freq: Status: Active Protocol: Document 02/19/21 15:12 HH (Rec: 02/19/21 16:08 [email or web address]) OP Gait Assessment Comments Gait Comments pt walks with high R steppage gait with high knee flexion to loose up his knee PT-OP-H Neuro Start: 02/19/21 13:37 Freq: Status: Active Protocol: Document 02/19/21 15:12 HH (Rec: 02/19/21 16:08 [email or web address]) Sensation Evaluation Gross Sensation Gross Sensation WNL Deep Tendon Reflex & Clonus Assessment Deep Tendon Reflex Bilateral Achilles Deep Tendon Reflex 2+ Normal Bilateral Patellar Deep Tendon Reflex 2+ Normal PT-OP-J Posture/Palpation/Skin Start: 02/19/21 13:37 Freq: Status: Active Protocol: Document 02/19/21 15:12 HH (Rec: 02/19/21 16:08 [email or web address]) Posture Evaluation Position Standing Head/C-Spine Posture Forward Head T-Spine Posture Increased Kyphosis Shoulder Posture (L) Rounded,(R) Rounded Knee Posture (L) Excess Flexion,(R) Excess Flexion Comments Posture Comments pt is able to stand up straight with knee fully extended but reports getting tired with back PT-OP-K Range of Motion Start: 02/19/21 13:37 Freq: Status: Active Protocol: Document 02/19/21 15:12 HH (Rec: 02/19/21 16:08 [email or web address]) Shoulder Goniometric Range of Motion Shoulder Right Active Comments WFL able to reach overhead tightness and slight pain at top of shoulder Left Active Shoulder ROM WFL Yes Comments WFL able to reach overhead Hip Goniometric Range of Motion Hip Right Active Hip ROM WFL Yes Left Active Hip ROM WFL Yes Knee Goniometric Range of Motion Knee Right Knee ROM WFL Yes Left Knee ROM WFL Yes PT-OP-M Strength Start: 02/19/21 13:37 Freq: Status: Active Protocol: Document 02/19/21 15:12 HH (Rec: 02/19/21 16:08 [email or web address]) Shoulder Strength Shoulder Manual Muscle Testing Right Flexion 4+ Good+ Extension 4+ Good+ Abduction (C5) 4+ Good+ Left Flexion 4+ Good+ Extension 4+ Good+ Abduction (C5) 4+ Good+ Hip Strength Hip Manual Muscle Testing Right Flexion (L2) 4+ Good+ Extension (S1) 4+ Good+ Left Flexion (L2) 4+ Good+ Extension (S1) 4+ Good+ Knee Strength Knee Manual Muscle Testing Right Flexion (S2) 4+ Good+ Extension (L3) 4+ Good+ Left Flexion (S2) 4+ Good+ Extension (L3) 4+ Good+ PT-OP-Q Treatments Start: 02/19/21 13:37 Freq: Status: Active Protocol: Document 03/23/21 12:15 SP (Rec: 03/23/21 13:35 SP [id number]) Cardio Equipment Recumbent Stepper (Sci-Fit) Duration (Minutes) 6 Resistance 3 Seat Position 15 Other UE/ LE Therapeutic Exercises Supine Exercises core progression Supine Exercise Name FF, Ts, 1/2 X ( added to HEP) Side bilateral Resistance AROM Equipment Used supine over noodle on floor ( has pipe insulation noodle at home) Reps/Minutes x5 reps each Comments good feedback response, cues for proper form, slow rest stretch at end rge Anterior Pelvic Tilt Supine Exercise Name with legs bent and extended over pillow (added to HEP) Side bilateral Resistance AROM Equipment Used reviewed over pool noodle Comments Cues for pressing tailbone toward floor. Anterior Thoracic stretch Supine Exercise Name pec stretch various ranges arm side> over head Resistance AROM Equipment Used over noodle, knees bent ( reviewed HEP) Reps/Minutes 1 min total Comments good feedback response- painfree Sitting Exercises sit<>stands Sitting Exercise Name Reviewed HEP Resistance 18 chair Equipment Used arm across chest cued chest lift w/ hip hinge Reps/Minutes 2x5 Comments improved eccentric descent Therapeutic Activity Therapeutic Activity on/ off floor Reps/Minutes 1 rep Comments ascend/descend usign chair for support SBA for safety doing core progression at home on floor. Good performance Gait Training Gait Activity 6MWT Device Used 0 Level of Assistance S Surface firm Distance/Duration 968ft Treatment Focus baseline endurance Comments forward flexed posture, arm swing at elbows, wt shift deviations to R during turns but self recovery. Manual Therapy Treatment Soft Tissue Mobilization anterior trunk Body Location B pecs, proximal abdominals at ribcage, psoas Mobilization Type Sustained Pressure Intensity/Depth Moderate Body Position Hooklying Comments Sustained pressure with breath paraspinals Body Location lumbar Mobilization Type Myofascial Release,Strumming, Sustained Pressure Intensity/Depth Moderate Body Position Prone over pillow Comments good feedback response PT-OP-R Modalities Start: 02/19/21 13:37 Freq: Status: Active Protocol: Document 03/08/21 11:26 HH (Rec: 03/08/21 12:11 HH [id number]) Hot Pack/Cold Pack Treatment Hot Pack Location cervical and lumbar Patient Position Hooklying Treatment Duration (minutes) 15 PT-OP-T Assessment and Plan Start: 02/19/21 13:37 Freq: Status: Active Protocol: Document 03/23/21 12:15 SP (Rec: 03/23/21 13:35 SP [id number]) Physical Therapy Assessment Goals activity program Impairment pt does not have a conditioning program Short Term Goal (STG) pt will begin to participate 2 days of pool exercises and daily stretching routine. 03/23/21: pt will start in pool on 03/26/21. STG Duration 5 weeks Binder Cutter Goal (LTG) pt will safely participate 2 pools days and 3 days for moderate intensity of strength training to improve his overall strength and posture. LTG Duration 10 weeks stiffness Impairment c/o significant stiffness at shoulders, knee and low back Short Term Goal (STG) pt will be demonstrate self efficacy to complete daily ROM routine to decrease his morning stiffness STG Duration 5 weeks Binder Cutter Goal (LTG) pt will be reports decreased stiffness symptoms in the morning no more than 2 hours. LTG Duration 10 weeks chronic pain Impairment significant generalized pain 6 /10 throughout the body Short Term Goal (STG) pt will have decreased generalized pain to 4/10 throughout the body to improve his quality of life STG Duration 5 weeks Custodial Goal (LTG) pt will have decreased generalized pain to 2 /10 throughout the body to improve his quality of life. LTG Duration 10 weeks 6 MWT Impairment will assess next session Impairment Assessment 03/23/21: 6MWT: 968 ft no AD. Assessment Summary Assessment Completed 968 ft in 6 min, noted trunk flexed, trunk wt shift sways at times, self recovery, able to maintain conversation but noted elevated breath rate. Pt reported back feels better after manual tx, not need modalities so can focus on ther ex to improve confidence for home. Reviewed supine stretching, introduced supine over noodle and added AROM core progression with cues for TA engagement for stability, good performance so added to HEP, has pipe insulation for noodle assimulation at home. Pt improved posture more upright leaving today and stated not as much back tension. Physical Therapy Plan Frequency and Duration Frequency of Treatment 2x/Week Duration of Treatment 10weeks Plan of Care Start Date 02/19/21 Plan of Care End Date 05/05/21 Therapeutic Interventions Therapeutic Interventions Aquatic Therapy,Balance Training,Gait Training,Home Exercise Program,Joint Mobilizations,Manual Therapy, Neuromuscular Re-education, Patient/Caregiver Education, Self-Care/Home Management,Soft Tissue Mobilization,Taping, Therapeutic Activities, Therapeutic Exercises Modalities Hot Packs,Traction- Mechanical Next Visit Focus/Plan Next Note Type Treatment Note Next Visit Plan Review: pec stretch over noodle on floor, if ok pec stretch add Ts, Xs, FF [place] AROM . Ask if has pic of Assess seated posture home chair w/ requested pic via . Add self STMs ball on wall for back assist. POC: 6MWT low impact ex, aquatic bike, stepper, recommend pt to acquire [place] swapna for morning stiffness postural restore , (lumbar surgery precautions) gentle ROM ex, LTR, knee to chest end with hot pack (No CP, doesn;t tolerate) for shoulder , lumbar, knee
--- NOTE | 2021-03-26 15:53 | PT.OTN ---
Current Diagnoses Unspecified osteoarthritis, unspecified site (03/26/21) Other symptoms and signs involving the musculoskeletal system (03/26/21) Weakness (03/26/21) Other reduced mobility (03/26/21) Physical Therapy Treatment Note PT-OP-A Visit Information Start: 02/19/21 13:37 Freq: Status: Active Protocol: Document 03/26/21 15:16 LJ (Rec: 03/26/21 15:53 LJ [id number]) Out-Patient Physical Therapy Visit Information Visit Information Visit Type Aquatic Treatment Note Visit Start Time 01:15 Visit Stop Time 02:00 Total Visit Minutes 45 Visit Number 09/26 Number of FISHERIES ENFORCEMENT OFFICER Visits 1 Evaluation Information Evaluation Date 02/19/21 Precautions Precautions pt completed chemotherapy for his bladder cancer 6 weeks ago . chronic PA 2 back surgeries no ice pack PT-OP-B Current Condition Start: 02/19/21 13:37 Freq: Status: Active Protocol: Document 02/19/21 15:12 HH (Rec: 02/19/21 16:08 HH [email or web address]) Current Condition History of Current Condition Onset Date many years ago Current Complaints chronic pain for the whole body, morning stiffness, decreased stamina History of Current Condition Richardson is a 85yo male here for his chronic joint stiffness and pain, along with decreased stamina. He recently completed chemotherapy 6 weeks ago for his bladder cancer and he is in remission as his PCP. He will be reassessed in a couple months. His primary c /o his significant stiffness from shoulders, low back and knee. He has to take 3 ibuprofen and stay in hot tub every morning to get loosen up. He also c/o possible chemotherapy induced fatigue that he noticed his endurance has gone down. He can walk certain distance (grocery shop ) and feel fatigue drastically which causes him falling occasionally. (once every couple months) Pt has L1-L5 fusion 3-4 years ago and he has been getting cortisone injections on his R knee every 6 months to reduce pain. Current Functional Impairments (Reported) Functional Limitations- Mobility/Gait fatigue after grocery shop/ walking > 3000ft Personal Factors Other Personal Factors That May Effect pt completed chemotherapy for Therapy/Recovery his bladder cancer 6 weeks ago . chronic PA 2 back surgeries PT-OP-C Subjective Start: 02/19/21 13:37 Freq: Status: Active Protocol: Document 03/26/21 15:16 LJ (Rec: 03/26/21 15:53 LJ [id number]) OP-PT Subjective Patient Comments Patient Comments Pt arrived 5 minutes early and got into water independently. He began floating around with noodle. PT-OP-F Manual Assessment Start: 02/19/21 13:37 Freq: Status: Active Protocol: Document 02/19/21 15:12 HH (Rec: 02/19/21 16:08 [email or web address]) Manual Assessments Soft Tissue Assessment Soft Tissue Mobility Assessment hyperalgesia noted at his lumbar surgical site hyperalgesia noted at medial and inferior R knee significant tightness/ tonicity at bilateral pecs PT-OP-G Mobility & Gait Start: 02/19/21 13:37 Freq: Status: Active Protocol: Document 02/19/21 15:12 HH (Rec: 02/19/21 16:08 [email or web address]) OP Gait Assessment Comments Gait Comments pt walks with high R steppage gait with high knee flexion to loose up his knee PT-OP-H Neuro Start: 02/19/21 13:37 Freq: Status: Active Protocol: Document 02/19/21 15:12 HH (Rec: 02/19/21 16:08 [email or web address]) Sensation Evaluation Gross Sensation Gross Sensation WNL Deep Tendon Reflex & Clonus Assessment Deep Tendon Reflex Bilateral Achilles Deep Tendon Reflex 2+ Normal Bilateral Patellar Deep Tendon Reflex 2+ Normal PT-OP-J Posture/Palpation/Skin Start: 02/19/21 13:37 Freq: Status: Active Protocol: Document 02/19/21 15:12 HH (Rec: 02/19/21 16:08 [email or web address]) Posture Evaluation Position Standing Head/C-Spine Posture Forward Head T-Spine Posture Increased Kyphosis Shoulder Posture (L) Rounded,(R) Rounded Knee Posture (L) Excess Flexion,(R) Excess Flexion Comments Posture Comments pt is able to stand up straight with knee fully extended but reports getting tired with back PT-OP-K Range of Motion Start: 02/19/21 13:37 Freq: Status: Active Protocol: Document 02/19/21 15:12 HH (Rec: 02/19/21 16:08 [email or web address]) Shoulder Goniometric Range of Motion Shoulder Right Active Comments WFL able to reach overhead tightness and slight pain at top of shoulder Left Active Shoulder ROM WFL Yes Comments WFL able to reach overhead Hip Goniometric Range of Motion Hip Right Active Hip ROM WFL Yes Left Active Hip ROM WFL Yes Knee Goniometric Range of Motion Knee Right Knee ROM WFL Yes Left Knee ROM WFL Yes PT-OP-M Strength Start: 02/19/21 13:37 Freq: Status: Active Protocol: Document 02/19/21 15:12 HH (Rec: 02/19/21 16:08 HH [email or web address]) Shoulder Strength Shoulder Manual Muscle Testing Right Flexion 4+ Good+ Extension 4+ Good+ Abduction (C5) 4+ Good+ Left Flexion 4+ Good+ Extension 4+ Good+ Abduction (C5) 4+ Good+ Hip Strength Hip Manual Muscle Testing Right Flexion (L2) 4+ Good+ Extension (S1) 4+ Good+ Left Flexion (L2) 4+ Good+ Extension (S1) 4+ Good+ Knee Strength Knee Manual Muscle Testing Right Flexion (S2) 4+ Good+ Extension (L3) 4+ Good+ Left Flexion (S2) 4+ Good+ Extension (L3) 4+ Good+ PT-OP-Q Treatments Start: 02/19/21 13:37 Freq: Status: Active Protocol: Document 03/23/21 12:15 SP (Rec: 03/23/21 13:35 SP [id number]) Cardio Equipment Recumbent Stepper (Sci-Fit) Duration (Minutes) 6 Resistance 3 Seat Position 15 Other UE/ LE Therapeutic Exercises Supine Exercises core progression Supine Exercise Name FF, Ts, 1/2 X ( added to HEP) Side bilateral Resistance AROM Equipment Used supine over noodle on floor ( has pipe insulation noodle at home) Reps/Minutes x5 reps each Comments good feedback response, cues for proper form, slow rest stretch at end rge Anterior Pelvic Tilt Supine Exercise Name with legs bent and extended over pillow (added to HEP) Side bilateral Resistance AROM Equipment Used reviewed over pool noodle Comments Cues for pressing tailbone toward floor. Anterior Thoracic stretch Supine Exercise Name pec stretch various ranges arm side> over head Resistance AROM Equipment Used over noodle, knees bent ( reviewed HEP) Reps/Minutes 1 min total Comments good feedback response- painfree Sitting Exercises sit<>stands Sitting Exercise Name Reviewed HEP Resistance 18 chair Equipment Used arm across chest cued chest lift w/ hip hinge Reps/Minutes 2x5 Comments improved eccentric descent Therapeutic Activity Therapeutic Activity on/ off floor Reps/Minutes 1 rep Comments ascend/descend usign chair for support SBA for safety doing core progression at home on floor. Good performance Gait Training Gait Activity 6MWT Device Used 0 Level of Assistance S Surface firm Distance/Duration 968ft Treatment Focus baseline endurance Comments forward flexed posture, arm swing at elbows, wt shift deviations to R during turns but self recovery. Manual Therapy Treatment Soft Tissue Mobilization anterior trunk Body Location B pecs, proximal abdominals at ribcage, psoas Mobilization Type Sustained Pressure Intensity/Depth Moderate Body Position Hooklying Comments Sustained pressure with breath paraspinals Body Location lumbar Mobilization Type Myofascial Release,Strumming, Sustained Pressure Intensity/Depth Moderate Body Position Prone over pillow Comments good feedback response PT-OP-R Modalities Start: 02/19/21 13:37 Freq: Status: Active Protocol: Document 03/08/21 11:26 HH (Rec: 03/08/21 12:11 HH [id number]) Hot Pack/Cold Pack Treatment Hot Pack Location cervical and lumbar Patient Position Hooklying Treatment Duration (minutes) 15 PT-OP-S Aquatic Treatment Start: 02/19/21 13:37 Freq: Status: Active Protocol: Document 03/26/21 15:16 LJ (Rec: 03/26/21 15:53 LJ [id number]) Aquatics Treatment Pool Entry/Exit Pool Entry/Exit Method Stairs Assistance Independent Comments difficulty with coordination Water Walking Sideways Water Level Chest Level Level of Assistance Verbal Cues Comments hori AB/AD UEs [place] Water Level Chest Level Level of Assistance Verbal Cues Comments difficulty with coordination Backwards Water Level Chest Level Level of Assistance Verbal Cues Comments fwd BS arms Forwards Water Level Chest Level Walking Equipment smile faces for UE drag Level of Assistance Verbal Cues Comments difficulty with coordination Lower Extremity Exercises sit<>stand Reps/Duration x8 Comments from table Lower Extremity Stretches hip flexors Details at wall Body Position Standing Water Level Waist Level Reps/Duration 2 x 30 B HS, gastroc, soleus Details stairs Body Position Standing Water Level Waist Level Reps/Duration 2 x 30 B Upper Extremity Exercises ab/ad, fl/ext Details at wall Body Position Standing Water Level Chest Level Reps/Duration 10 ea Upper Extremity Stretches UE flexion Details at wall Body Position Standing Water Level Waist Level Reps/Duration 2 x 30 pectoral Details in corner Body Position Standing Water Level Neck Level Reps/Duration 2 x 30 Spinal Exercises trunk rotation Details at wall Body Position Standing Water Level Chest Level Reps/Duration 10 Comments UEs extended with trunk rotation [place] Activities [place] Activities Bicycle,Bicycle Backwards Equipment blue float, #2 weights, black BBs Duration 10 min Comments needs more weight with more floatation PT-OP-T Assessment and Plan Start: 02/19/21 13:37 Freq: Status: Active Protocol: Document 03/26/21 15:16 [email or web address] (Rec: 03/26/21 15:53 LJ [id number]) Physical Therapy Assessment Goals activity program Impairment pt does not have a conditioning program Short Term Goal (STG) pt will begin to participate 2 days of pool exercises and daily stretching routine. 03/23/21: pt will start in pool on 03/26/21. STG Duration 5 weeks Detention Goal (LTG) pt will safely participate 2 pools days and 3 days for moderate intensity of strength training to improve his overall strength and posture. LTG Duration 10 weeks stiffness Impairment c/o significant stiffness at shoulders, knee and low back Short Term Goal (STG) pt will be demonstrate self efficacy to complete daily ROM routine to decrease his morning stiffness STG Duration 5 weeks Detention Goal (LTG) pt will be reports decreased stiffness symptoms in the morning no more than 2 hours. LTG Duration 10 weeks chronic pain Impairment significant generalized pain 6 /10 throughout the body Short Term Goal (STG) pt will have decreased generalized pain to 4/10 throughout the body to improve his quality of life STG Duration 5 weeks Detention Goal (LTG) pt will have decreased generalized pain to 2 /10 throughout the body to improve his quality of life. LTG Duration 10 weeks 6 MWT Impairment will assess next session Impairment Assessment 03/23/21: 6MWT: 968 ft no AD. Assessment Summary Assessment LAND: Completed 968 ft in 6 min, noted trunk flexed, trunk wt shift sways at times, self recovery, able to maintain conversation but noted elevated breath rate. Pt reported back feels better after manual tx, not need modalities so can focus on ther ex to improve confidence for home. Reviewed supine stretching, introduced supine over noodle and added AROM core progression with cues for TA engagement for stability, good performance so added to HEP, has pipe insulation for noodle assimulation at home. Pt improved posture more upright leaving today and stated not as much back tension. AQUATIC: Pt requires verbal cueing for posture and coordination. He did not complain of pain with any exercises. Pt would like to go to pool on his own to exercies more. He is familiar with the pool and will benefit from basic HEP for pool in addition to therapy visits. Physical Therapy Plan Frequency and Duration Frequency of Treatment 2x/Week Duration of Treatment 10weeks Plan of Care Start Date 02/19/21 Plan of Care End Date 05/05/21 Therapeutic Interventions Therapeutic Interventions Aquatic Therapy,Balance Training,Gait Training,Home Exercise Program,Joint Mobilizations,Manual Therapy, Neuromuscular Re-education, Patient/Caregiver Education, Self-Care/Home Management,Soft Tissue Mobilization,Taping, Therapeutic Activities, Therapeutic Exercises Modalities Hot Packs,Traction- Mechanical Next Visit Focus/Plan Next Note Type Treatment Note Next Visit Plan [place]:Review: pec stretch over noodle on floor, if ok pec stretch add Ts, Xs, FF [place] AROM . Ask if has pic of Assess seated posture home chair w/ requested pic via . Add self STMs ball on wall for back assist. POC: 6MWT AQUATIC: Establish good posture and coordination with walking exercises. Progress exercises as tolerated. low impact ex, aquatic bike, stepper, recommend pt to acquire [place] swapna for morning stiffness postural restore , (lumbar surgery precautions) gentle ROM ex, LTR, knee to chest end with hot pack (No CP, doesn;t tolerate) for shoulder , lumbar, knee
--- NOTE | 2021-04-12 17:18 | PT.OTN ---
Current Diagnoses Unspecified osteoarthritis, unspecified site (04/12/21) Other symptoms and signs involving the musculoskeletal system (04/12/21) Weakness (04/12/21) Other reduced mobility (04/12/21) Physical Therapy Treatment Note PT-OP-A Visit Information Start: 02/19/21 13:37 Freq: Status: Active Protocol: Document 04/12/21 08:57 SAK (Rec: 04/12/21 09:46 SAK [id number]) Out-Patient Physical Therapy Visit Information Visit Information Visit Type Aquatic Treatment Note Visit Start Time 01:15 Visit Stop Time 02:00 Total Visit Minutes 45 Visit Number 10/26 Number of SCHOOL CHILD CARE ATTENDANT Visits 0 Evaluation Information Evaluation Date 02/19/21 Precautions Precautions pt completed chemotherapy for his bladder cancer 6 weeks ago . chronic PA 2 back surgeries no ice pack PT-OP-B Current Condition Start: 02/19/21 13:37 Freq: Status: Active Protocol: Document 02/19/21 15:12 (Rec: 02/19/21 16:08 [email or web address]) Current Condition History of Current Condition Onset Date many years ago Current Complaints chronic pain for the whole body, morning stiffness, decreased stamina History of Current Condition Richardson is a 85yo male here for his chronic joint stiffness and pain, along with decreased stamina. He recently completed chemotherapy 6 weeks ago for his bladder cancer and he is in remission as his PCP. He will be reassessed in a couple months. His primary c /o his significant stiffness from shoulders, low back and knee. He has to take 3 ibuprofen and stay in hot tub every morning to get loosen up. He also c/o possible chemotherapy induced fatigue that he noticed his endurance has gone down. He can walk certain distance (grocery shop ) and feel fatigue drastically which causes him falling occasionally. (once every couple months) Pt has L1-L5 fusion 3-4 years ago and he has been getting cortisone injections on his R knee every 6 months to reduce pain. Current Functional Impairments (Reported) Functional Limitations- Mobility/Gait fatigue after grocery shop/ walking > 3000ft Personal Factors Other Personal Factors That May Effect pt completed chemotherapy for Therapy/Recovery his bladder cancer 6 weeks ago . chronic PA 2 back surgeries PT-OP-C Subjective Start: 02/19/21 13:37 Freq: Status: Active Protocol: Document 04/12/21 08:57 SAK (Rec: 04/12/21 09:46 [facility] [id number]) OP-PT Subjective Patient Comments Patient Comments No new c/o, my body is talking to me but I'm ok. Fair tolerance to HEP, likes his noodle. Taking 15-30 min walk per day. PT-OP-F Manual Assessment Start: 02/19/21 13:37 Freq: Status: Active Protocol: Document 02/19/21 15:12 HH (Rec: 02/19/21 16:08 [email or web address]) Manual Assessments Soft Tissue Assessment Soft Tissue Mobility Assessment hyperalgesia noted at his lumbar surgical site hyperalgesia noted at medial and inferior R knee significant tightness/ tonicity at bilateral pecs PT-OP-G Mobility & Gait Start: 02/19/21 13:37 Freq: Status: Active Protocol: Document 02/19/21 15:12 HH (Rec: 02/19/21 16:08 [email or web address]) OP Gait Assessment Comments Gait Comments pt walks with high R steppage gait with high knee flexion to loose up his knee PT-OP-H Neuro Start: 02/19/21 13:37 Freq: Status: Active Protocol: Document 02/19/21 15:12 HH (Rec: 02/19/21 16:08 [email or web address]) Sensation Evaluation Gross Sensation Gross Sensation WNL Deep Tendon Reflex & Clonus Assessment Deep Tendon Reflex Bilateral Achilles Deep Tendon Reflex 2+ Normal Bilateral Patellar Deep Tendon Reflex 2+ Normal PT-OP-J Posture/Palpation/Skin Start: 02/19/21 13:37 Freq: Status: Active Protocol: Document 02/19/21 15:12 HH (Rec: 02/19/21 16:08 [email or web address]) Posture Evaluation Position Standing Head/C-Spine Posture Forward Head T-Spine Posture Increased Kyphosis Shoulder Posture (L) Rounded,(R) Rounded Knee Posture (L) Excess Flexion,(R) Excess Flexion Comments Posture Comments pt is able to stand up straight with knee fully extended but reports getting tired with back PT-OP-K Range of Motion Start: 02/19/21 13:37 Freq: Status: Active Protocol: Document 02/19/21 15:12 HH (Rec: 02/19/21 16:08 [email or web address]) Shoulder Goniometric Range of Motion Shoulder Right Active Comments WFL able to reach overhead tightness and slight pain at top of shoulder Left Active Shoulder ROM WFL Yes Comments WFL able to reach overhead Hip Goniometric Range of Motion Hip Right Active Hip ROM WFL Yes Left Active Hip ROM WFL Yes Knee Goniometric Range of Motion Knee Right Knee ROM WFL Yes Left Knee ROM WFL Yes PT-OP-M Strength Start: 02/19/21 13:37 Freq: Status: Active Protocol: Document 02/19/21 15:12 HH (Rec: 02/19/21 16:08 HH [email or web address]) Shoulder Strength Shoulder Manual Muscle Testing Right Flexion 4+ Good+ Extension 4+ Good+ Abduction (C5) 4+ Good+ Left Flexion 4+ Good+ Extension 4+ Good+ Abduction (C5) 4+ Good+ Hip Strength Hip Manual Muscle Testing Right Flexion (L2) 4+ Good+ Extension (S1) 4+ Good+ Left Flexion (L2) 4+ Good+ Extension (S1) 4+ Good+ Knee Strength Knee Manual Muscle Testing Right Flexion (S2) 4+ Good+ Extension (L3) 4+ Good+ Left Flexion (S2) 4+ Good+ Extension (L3) 4+ Good+ PT-OP-Q Treatments Start: 02/19/21 13:37 Freq: Status: Active Protocol: Document 04/12/21 08:57 SAK (Rec: 04/12/21 09:46 [facility] [id number]) Cardio Equipment Recumbent Stepper (Sci-Fit) Duration (Minutes) 10 Resistance 3 Seat Position 15 Other UE/ LE Therapeutic Exercises Supine Exercises core progression Supine Exercise Name FF, Ts, 1/2 X ( added to HEP) Side bilateral Resistance AROM, L1 TB Equipment Used supine over noodle on floor ( has pipe insulation noodle at home) Reps/Minutes x5 reps each Comments increased challenge with LE's closer together, core activation Anterior Pelvic Tilt Supine Exercise Name with legs bent and extended over pillow (added to HEP) Side bilateral Resistance AROM Equipment Used reviewed over pool noodle Comments Cues for pressing tailbone toward floor. Anterior Thoracic stretch Supine Exercise Name pec stretch various ranges arm side> over head Resistance AROM Equipment Used over noodle, knees bent ( reviewed HEP) Reps/Minutes 1 min total Comments good feedback response- painfree LTR Reps/Minutes 10x2 Comments for HEP Sitting Exercises sit<>stands Sitting Exercise Name Reviewed HEP Resistance 18 chair Equipment Used arm across chest cued chest lift w/ hip hinge Reps/Minutes 2x5 Comments improved eccentric descent Therapeutic Activity Therapeutic Activity on/ off floor Reps/Minutes 1 rep Comments ascend/descend usign chair for support SBA for safety doing core progression at home on floor. Good performance Manual Therapy Treatment Soft Tissue Mobilization anterior trunk Body Location B pecs, proximal abdominals at ribcage, psoas Mobilization Type Sustained Pressure Intensity/Depth Moderate Body Position Hooklying Comments Sustained pressure with breath paraspinals Body Location lumbar Mobilization Type Myofascial Release,Strumming, Sustained Pressure Intensity/Depth Moderate Body Position Prone over pillow Comments good feedback response PT-OP-R Modalities Start: 02/19/21 13:37 Freq: Status: Active Protocol: Document 04/12/21 08:57 SAK (Rec: 04/12/21 09:46 SAK [id number]) Hot Pack/Cold Pack Treatment Hot Pack Location cervical and lumbar Patient Position Prone Treatment Duration (minutes) 15 PT-OP-S Aquatic Treatment Start: 02/19/21 13:37 Freq: Status: Active Protocol: Document 03/26/21 15:16 LJ (Rec: 03/26/21 15:53 LJ [id number]) Aquatics Treatment Pool Entry/Exit Pool Entry/Exit Method Stairs Assistance Independent Comments difficulty with coordination Water Walking Sideways Water Level Chest Level Level of Assistance Verbal Cues Comments hori AB/AD UEs [place] June Water Level Chest Level Level of Assistance Verbal Cues Comments difficulty with coordination Backwards Water Level Chest Level Level of Assistance Verbal Cues Comments fwd BS arms Forwards Water Level Chest Level Walking Equipment smile faces for UE drag Level of Assistance Verbal Cues Comments difficulty with coordination Lower Extremity Exercises sit<>stand Reps/Duration x8 Comments from table Lower Extremity Stretches hip flexors Details at wall Body Position Standing Water Level Waist Level Reps/Duration 2 x 30 B HS, gastroc, soleus Details stairs Body Position Standing Water Level Waist Level Reps/Duration 2 x 30 B Upper Extremity Exercises ab/ad, fl/ext Details at wall Body Position Standing Water Level Chest Level Reps/Duration 10 ea Upper Extremity Stretches UE flexion Details at wall Body Position Standing Water Level Waist Level Reps/Duration 2 x 30 pectoral Details in corner Body Position Standing Water Level Neck Level Reps/Duration 2 x 30 Spinal Exercises trunk rotation Details at wall Body Position Standing Water Level Chest Level Reps/Duration 10 Comments UEs extended with trunk rotation [place] Activities [place] Activities Bicycle,Bicycle Backwards Equipment blue float, #2 weights, black BBs Duration 10 min Comments needs more weight with more floatation PT-OP-T Assessment and Plan Start: 02/19/21 13:37 Freq: Status: Active Protocol: Document 04/12/21 08:57 SAK (Rec: 04/12/21 09:46 [facility] [id number]) Physical Therapy Assessment Goals activity program Impairment pt does not have a conditioning program Short Term Goal (STG) pt will begin to participate 2 days of pool exercises and daily stretching routine. 03/23/21: pt will start in pool on 03/26/21. STG Duration 5 weeks Weight Reducing Technician Goal (LTG) pt will safely participate 2 pools days and 3 days for moderate intensity of strength training to improve his overall strength and posture. LTG Duration 10 weeks stiffness Impairment c/o significant stiffness at shoulders, knee and low back Short Term Goal (STG) pt will be demonstrate self efficacy to complete daily ROM routine to decrease his morning stiffness STG Duration 5 weeks Weight Reducing Technician Goal (LTG) pt will be reports decreased stiffness symptoms in the morning no more than 2 hours. LTG Duration 10 weeks chronic pain Impairment significant generalized pain 6 /10 throughout the body Short Term Goal (STG) pt will have decreased generalized pain to 4/10 throughout the body to improve his quality of life STG Duration 5 weeks Assisted Goal (LTG) pt will have decreased generalized pain to 2 /10 throughout the body to improve his quality of life. LTG Duration 10 weeks 6 MWT Impairment will assess next session Impairment Assessment 03/23/21: 6MWT: 968 ft no AD. Assessment Summary Assessment Patient tolerated increase in Sci-Fit and addition of level 1 theraband to shoulder exercises while supine on noodle. Progression of core ex on noodle with decreasing base of support of LE's and closing eyes. Patient has difficulty with attaining movement into anterior pelvic tilt. Decreased muscle tension in lumbar spine after treatment. Physical Therapy Plan Frequency and Duration Frequency of Treatment 2x/Week Duration of Treatment 10weeks Plan of Care Start Date 02/19/21 Plan of Care End Date 05/05/21 Therapeutic Interventions Therapeutic Interventions Aquatic Therapy,Balance Training,Gait Training,Home Exercise Program,Joint Mobilizations,Manual Therapy, Neuromuscular Re-education, Patient/Caregiver Education, Self-Care/Home Management,Soft Tissue Mobilization,Taping, Therapeutic Activities, Therapeutic Exercises Modalities Hot Packs,Traction- Mechanical Next Visit Focus/Plan Next Note Type Treatment Note Next Visit Plan Land: add self STM with use of tennis ball on wall. Aquatic: progress core stabilization ex, work on anterior pelvic tilt, conditioning
--- NOTE | 2021-04-14 17:06 | PT.OTN ---
Current Diagnoses Unspecified osteoarthritis, unspecified site (04/14/21) Other symptoms and signs involving the musculoskeletal system (04/14/21) Weakness (04/14/21) Other reduced mobility (04/14/21) Physical Therapy Treatment Note PT-OP-A Visit Information Start: 02/19/21 13:37 Freq: Status: Active Protocol: Document 04/14/21 16:57 SAK (Rec: 04/14/21 17:06 SAK [id number]) Out-Patient Physical Therapy Visit Information Visit Information Visit Type Aquatic Treatment Note Visit Start Time 11:00 Visit Stop Time 11:45 Total Visit Minutes 45 Visit Number 11/26 Number of OPHTHALMIC SURGEON Visits 0 Evaluation Information Evaluation Date 02/19/21 Precautions Precautions pt completed chemotherapy for his bladder cancer 6 weeks ago . chronic PA 2 back surgeries no ice pack PT-OP-B Current Condition Start: 02/19/21 13:37 Freq: Status: Active Protocol: Document 02/19/21 15:12 (Rec: 02/19/21 16:08 [email or web address]) Current Condition History of Current Condition Onset Date many years ago Current Complaints chronic pain for the whole body, morning stiffness, decreased stamina History of Current Condition Richardson is a 85yo male here for his chronic joint stiffness and pain, along with decreased stamina. He recently completed chemotherapy 6 weeks ago for his bladder cancer and he is in remission as his PCP. He will be reassessed in a couple months. His primary c /o his significant stiffness from shoulders, low back and knee. He has to take 3 ibuprofen and stay in hot tub every morning to get loosen up. He also c/o possible chemotherapy induced fatigue that he noticed his endurance has gone down. He can walk certain distance (grocery shop ) and feel fatigue drastically which causes him falling occasionally. (once every couple months) Pt has L1-L5 fusion 3-4 years ago and he has been getting cortisone injections on his R knee every 6 months to reduce pain. Current Functional Impairments (Reported) Functional Limitations- Mobility/Gait fatigue after grocery shop/ walking > 3000ft Personal Factors Other Personal Factors That May Effect pt completed chemotherapy for Therapy/Recovery his bladder cancer 6 weeks ago . chronic PA 2 back surgeries PT-OP-C Subjective Start: 02/19/21 13:37 Freq: Status: Active Protocol: Document 04/14/21 16:57 SAK (Rec: 04/14/21 17:06 [facility] [id number]) OP-PT Subjective Patient Comments Patient Comments No new c/o, feeling more comfortable with HEP; already did this am. PT-OP-F Manual Assessment Start: 02/19/21 13:37 Freq: Status: Active Protocol: Document 02/19/21 15:12 (Rec: 02/19/21 16:08 [email or web address]) Manual Assessments Soft Tissue Assessment Soft Tissue Mobility Assessment hyperalgesia noted at his lumbar surgical site hyperalgesia noted at medial and inferior R knee significant tightness/ tonicity at bilateral pecs PT-OP-G Mobility & Gait Start: 02/19/21 13:37 Freq: Status: Active Protocol: Document 02/19/21 15:12 (Rec: 02/19/21 16:08 [email or web address]) OP Gait Assessment Comments Gait Comments pt walks with high R steppage gait with high knee flexion to loose up his knee PT-OP-H Neuro Start: 02/19/21 13:37 Freq: Status: Active Protocol: Document 02/19/21 15:12 HH (Rec: 02/19/21 16:08 [email or web address]) Sensation Evaluation Gross Sensation Gross Sensation WNL Deep Tendon Reflex & Clonus Assessment Deep Tendon Reflex Bilateral Achilles Deep Tendon Reflex 2+ Normal Bilateral Patellar Deep Tendon Reflex 2+ Normal PT-OP-J Posture/Palpation/Skin Start: 02/19/21 13:37 Freq: Status: Active Protocol: Document 02/19/21 15:12 (Rec: 02/19/21 16:08 [email or web address]) Posture Evaluation Position Standing Head/C-Spine Posture Forward Head T-Spine Posture Increased Kyphosis Shoulder Posture (L) Rounded,(R) Rounded Knee Posture (L) Excess Flexion,(R) Excess Flexion Comments Posture Comments pt is able to stand up straight with knee fully extended but reports getting tired with back PT-OP-K Range of Motion Start: 02/19/21 13:37 Freq: Status: Active Protocol: Document 02/19/21 15:12 (Rec: 02/19/21 16:08 [email or web address]) Shoulder Goniometric Range of Motion Shoulder Right Active Comments WFL able to reach overhead tightness and slight pain at top of shoulder Left Active Shoulder ROM WFL Yes Comments WFL able to reach overhead Hip Goniometric Range of Motion Hip Right Active Hip ROM WFL Yes Left Active Hip ROM WFL Yes Knee Goniometric Range of Motion Knee Right Knee ROM WFL Yes Left Knee ROM WFL Yes PT-OP-M Strength Start: 02/19/21 13:37 Freq: Status: Active Protocol: Document 02/19/21 15:12 HH (Rec: 02/19/21 16:08 HH [email or web address]) Shoulder Strength Shoulder Manual Muscle Testing Right Flexion 4+ Good+ Extension 4+ Good+ Abduction (C5) 4+ Good+ Left Flexion 4+ Good+ Extension 4+ Good+ Abduction (C5) 4+ Good+ Hip Strength Hip Manual Muscle Testing Right Flexion (L2) 4+ Good+ Extension (S1) 4+ Good+ Left Flexion (L2) 4+ Good+ Extension (S1) 4+ Good+ Knee Strength Knee Manual Muscle Testing Right Flexion (S2) 4+ Good+ Extension (L3) 4+ Good+ Left Flexion (S2) 4+ Good+ Extension (L3) 4+ Good+ PT-OP-Q Treatments Start: 02/19/21 13:37 Freq: Status: Active Protocol: Document 04/12/21 08:57 SAK (Rec: 04/12/21 09:46 [facility] [id number]) Cardio Equipment Recumbent Stepper (Sci-Fit) Duration (Minutes) 10 Resistance 3 Seat Position 15 Other UE/ LE Therapeutic Exercises Supine Exercises core progression Supine Exercise Name FF, Ts, 1/2 X ( added to HEP) Side bilateral Resistance AROM, L1 TB Equipment Used supine over noodle on floor ( has pipe insulation noodle at home) Reps/Minutes x5 reps each Comments increased challenge with LE's closer together, core activation Anterior Pelvic Tilt Supine Exercise Name with legs bent and extended over pillow (added to HEP) Side bilateral Resistance AROM Equipment Used reviewed over pool noodle Comments Cues for pressing tailbone toward floor. Anterior Thoracic stretch Supine Exercise Name pec stretch various ranges arm side> over head Resistance AROM Equipment Used over noodle, knees bent ( reviewed HEP) Reps/Minutes 1 min total Comments good feedback response- painfree LTR Reps/Minutes 10x2 Comments for HEP Sitting Exercises sit<>stands Sitting Exercise Name Reviewed HEP Resistance 18 chair Equipment Used arm across chest cued chest lift w/ hip hinge Reps/Minutes 2x5 Comments improved eccentric descent Therapeutic Activity Therapeutic Activity on/ off floor Reps/Minutes 1 rep Comments ascend/descend usign chair for support SBA for safety doing core progression at home on floor. Good performance Manual Therapy Treatment Soft Tissue Mobilization anterior trunk Body Location B pecs, proximal abdominals at ribcage, psoas Mobilization Type Sustained Pressure Intensity/Depth Moderate Body Position Hooklying Comments Sustained pressure with breath paraspinals Body Location lumbar Mobilization Type Myofascial Release,Strumming, Sustained Pressure Intensity/Depth Moderate Body Position Prone over pillow Comments good feedback response PT-OP-R Modalities Start: 02/19/21 13:37 Freq: Status: Active Protocol: Document 04/12/21 08:57 [facility] (Rec: 04/12/21 09:46 [facility] [id number]) Hot Pack/Cold Pack Treatment Hot Pack Location cervical and lumbar Patient Position Prone Treatment Duration (minutes) 15 PT-OP-S Aquatic Treatment Start: 02/19/21 13:37 Freq: Status: Active Protocol: Document 04/14/21 16:57 [facility] (Rec: 04/14/21 17:06 [facility] [id number]) Aquatics Treatment Pool Entry/Exit Pool Entry/Exit Method Stairs Assistance Independent Comments difficulty with coordination Water Walking Sideways Water Level Chest Level Level of Assistance Verbal Cues Comments hori AB/AD UEs [place] June Water Level Chest Level Level of Assistance Verbal Cues Comments difficulty with coordination Backwards Water Level Chest Level Level of Assistance Verbal Cues Comments fwd BS arms Forwards Water Level Chest Level Walking Equipment smile faces for UE drag Level of Assistance Verbal Cues Comments difficulty with coordination Lower Extremity Stretches HS, gastroc, soleus Details stairs Body Position Standing Water Level Waist Level Reps/Duration 2 x 30 B Upper Extremity Exercises ab/ad, fl/ext Body Position Standing Water Level Chest Level Reps/Duration 10 ea Comments emphasis on core stab Spinal Exercises anterior pelvic tilt Reps/Duration 5x Comments verbal and manual cues [place] Activities [place] Activities Bicycle,Bicycle Backwards, Running Other Activities deep water hang at wall with full body stretch/lengthening and decompression Equipment blue float, #2 weights on LE's , black BBs Duration 10 min PT-OP-T Assessment and Plan Start: 02/19/21 13:37 Freq: Status: Active Protocol: Document 04/14/21 16:57 [facility] (Rec: 04/14/21 17:06 [facility] [id number]) Physical Therapy Assessment Goals activity program Impairment pt does not have a conditioning program Short Term Goal (STG) pt will begin to participate 2 days of pool exercises and daily stretching routine. 03/23/21: pt will start in pool on 03/26/21. STG Duration 5 weeks Nursing Home Goal (LTG) pt will safely participate 2 pools days and 3 days for moderate intensity of strength training to improve his overall strength and posture. LTG Duration 10 weeks stiffness Impairment c/o significant stiffness at shoulders, knee and low back Short Term Goal (STG) pt will be demonstrate self efficacy to complete daily ROM routine to decrease his morning stiffness STG Duration 5 weeks Nursing Home Goal (LTG) pt will be reports decreased stiffness symptoms in the morning no more than 2 hours. LTG Duration 10 weeks chronic pain Impairment significant generalized pain 6 /10 throughout the body Short Term Goal (STG) pt will have decreased generalized pain to 4/10 throughout the body to improve his quality of life STG Duration 5 weeks Roll Skinner Goal (LTG) pt will have decreased generalized pain to 2 /10 throughout the body to improve his quality of life. LTG Duration 10 weeks 6 MWT Impairment will assess next session Impairment Assessment 03/23/21: 6MWT: 968 ft no AD. Assessment Summary Assessment Aquatic treatment today; frequent cues for core stabilization and postural alignment required with all aquatic exercises, receptive to correction. difficulty attaining anterior pelvic tilt . Patient highly motivated to continue with aquatic exercises after discharge. Physical Therapy Plan Frequency and Duration Frequency of Treatment 2x/Week Duration of Treatment 10weeks Plan of Care Start Date 02/19/21 Plan of Care End Date 05/05/21 Therapeutic Interventions Therapeutic Interventions Aquatic Therapy,Balance Training,Gait Training,Home Exercise Program,Joint Mobilizations,Manual Therapy, Neuromuscular Re-education, Patient/Caregiver Education, Self-Care/Home Management,Soft Tissue Mobilization,Taping, Therapeutic Activities, Therapeutic Exercises Modalities Hot Packs,Traction- Mechanical Next Visit Focus/Plan Next Note Type Treatment Note Next Visit Plan Land: add self STM with use of tennis ball on wall. Aquatic: progress core stabilization ex, work on anterior pelvic tilt, conditioning
--- NOTE | 2021-04-28 15:13 | PT.OTN ---
Current Diagnoses Unspecified osteoarthritis, unspecified site (04/14/21) Other symptoms and signs involving the musculoskeletal system (04/14/21) Weakness (04/14/21) Other reduced mobility (04/14/21) Physical Therapy Treatment Note PT-OP-A Visit Information Start: 02/19/21 13:37 Freq: Status: Active Protocol: Document 04/28/21 14:53 LJ (Rec: 04/28/21 15:13 LJ [id number]) Out-Patient Physical Therapy Visit Information Visit Information Visit Type Aquatic Treatment Note Visit Start Time 10:15 Visit Stop Time 11:00 Total Visit Minutes 45 Visit Number 12/27 Number of DOCK BUILDER Visits 1 Evaluation Information Evaluation Date 02/19/21 Precautions Precautions pt completed chemotherapy for his bladder cancer 6 weeks ago . chronic PA 2 back surgeries no ice pack PT-OP-B Current Condition Start: 02/19/21 13:37 Freq: Status: Active Protocol: Document 02/19/21 15:12 HH (Rec: 02/19/21 16:08 [email or web address]) Current Condition History of Current Condition Onset Date many years ago Current Complaints chronic pain for the whole body, morning stiffness, decreased stamina History of Current Condition Richardson is a 85yo male here for his chronic joint stiffness and pain, along with decreased stamina. He recently completed chemotherapy 6 weeks ago for his bladder cancer and he is in remission as his PCP. He will be reassessed in a couple months. His primary c /o his significant stiffness from shoulders, low back and knee. He has to take 3 ibuprofen and stay in hot tub every morning to get loosen up. He also c/o possible chemotherapy induced fatigue that he noticed his endurance has gone down. He can walk certain distance (grocery shop ) and feel fatigue drastically which causes him falling occasionally. (once every couple months) Pt has L1-L5 fusion 3-4 years ago and he has been getting cortisone injections on his R knee every 6 months to reduce pain. Current Functional Impairments (Reported) Functional Limitations- Mobility/Gait fatigue after grocery shop/ walking > 3000ft Personal Factors Other Personal Factors That May Effect pt completed chemotherapy for Therapy/Recovery his bladder cancer 6 weeks ago . chronic PA 2 back surgeries PT-OP-C Subjective Start: 02/19/21 13:37 Freq: Status: Active Protocol: Document 04/28/21 14:53 LJ (Rec: 04/28/21 15:13 LJ [id number]) OP-PT Subjective Patient Comments Patient Comments Pt states he is planning on working out with [facility] at the pool on his own. PT-OP-F Manual Assessment Start: 02/19/21 13:37 Freq: Status: Active Protocol: Document 02/19/21 15:12 HH (Rec: 02/19/21 16:08 [email or web address]) Manual Assessments Soft Tissue Assessment Soft Tissue Mobility Assessment hyperalgesia noted at his lumbar surgical site hyperalgesia noted at medial and inferior R knee significant tightness/ tonicity at bilateral pecs PT-OP-G Mobility & Gait Start: 02/19/21 13:37 Freq: Status: Active Protocol: Document 02/19/21 15:12 HH (Rec: 02/19/21 16:08 [email or web address]) OP Gait Assessment Comments Gait Comments pt walks with high R steppage gait with high knee flexion to loose up his knee PT-OP-H Neuro Start: 02/19/21 13:37 Freq: Status: Active Protocol: Document 02/19/21 15:12 HH (Rec: 02/19/21 16:08 [email or web address]) Sensation Evaluation Gross Sensation Gross Sensation WNL Deep Tendon Reflex & Clonus Assessment Deep Tendon Reflex Bilateral Achilles Deep Tendon Reflex 2+ Normal Bilateral Patellar Deep Tendon Reflex 2+ Normal PT-OP-J Posture/Palpation/Skin Start: 02/19/21 13:37 Freq: Status: Active Protocol: Document 02/19/21 15:12 HH (Rec: 02/19/21 16:08 [email or web address]) Posture Evaluation Position Standing Head/C-Spine Posture Forward Head T-Spine Posture Increased Kyphosis Shoulder Posture (L) Rounded,(R) Rounded Knee Posture (L) Excess Flexion,(R) Excess Flexion Comments Posture Comments pt is able to stand up straight with knee fully extended but reports getting tired with back PT-OP-K Range of Motion Start: 02/19/21 13:37 Freq: Status: Active Protocol: Document 02/19/21 15:12 HH (Rec: 02/19/21 16:08 [email or web address]) Shoulder Goniometric Range of Motion Shoulder Right Active Comments WFL able to reach overhead tightness and slight pain at top of shoulder Left Active Shoulder ROM WFL Yes Comments WFL able to reach overhead Hip Goniometric Range of Motion Hip Right Active Hip ROM WFL Yes Left Active Hip ROM WFL Yes Knee Goniometric Range of Motion Knee Right Knee ROM WFL Yes Left Knee ROM WFL Yes PT-OP-M Strength Start: 02/19/21 13:37 Freq: Status: Active Protocol: Document 02/19/21 15:12 HH (Rec: 02/19/21 16:08 HH [email or web address]) Shoulder Strength Shoulder Manual Muscle Testing Right Flexion 4+ Good+ Extension 4+ Good+ Abduction (C5) 4+ Good+ Left Flexion 4+ Good+ Extension 4+ Good+ Abduction (C5) 4+ Good+ Hip Strength Hip Manual Muscle Testing Right Flexion (L2) 4+ Good+ Extension (S1) 4+ Good+ Left Flexion (L2) 4+ Good+ Extension (S1) 4+ Good+ Knee Strength Knee Manual Muscle Testing Right Flexion (S2) 4+ Good+ Extension (L3) 4+ Good+ Left Flexion (S2) 4+ Good+ Extension (L3) 4+ Good+ PT-OP-Q Treatments Start: 02/19/21 13:37 Freq: Status: Active Protocol: Document 04/12/21 08:57 SAK (Rec: 04/12/21 09:46 SAK [id number]) Cardio Equipment Recumbent Stepper (Sci-Fit) Duration (Minutes) 10 Resistance 3 Seat Position 15 Other UE/ LE Therapeutic Exercises Supine Exercises core progression Supine Exercise Name FF, Ts, 1/2 X ( added to HEP) Side bilateral Resistance AROM, L1 TB Equipment Used supine over noodle on floor ( has pipe insulation noodle at home) Reps/Minutes x5 reps each Comments increased challenge with LE's closer together, core activation Anterior Pelvic Tilt Supine Exercise Name with legs bent and extended over pillow (added to HEP) Side bilateral Resistance AROM Equipment Used reviewed over pool noodle Comments Cues for pressing tailbone toward floor. Anterior Thoracic stretch Supine Exercise Name pec stretch various ranges arm side> over head Resistance AROM Equipment Used over noodle, knees bent ( reviewed HEP) Reps/Minutes 1 min total Comments good feedback response- painfree LTR Reps/Minutes 10x2 Comments for HEP Sitting Exercises sit<>stands Sitting Exercise Name Reviewed HEP Resistance 18 chair Equipment Used arm across chest cued chest lift w/ hip hinge Reps/Minutes 2x5 Comments improved eccentric descent Therapeutic Activity Therapeutic Activity on/ off floor Reps/Minutes 1 rep Comments ascend/descend usign chair for support SBA for safety doing core progression at home on floor. Good performance Manual Therapy Treatment Soft Tissue Mobilization anterior trunk Body Location B pecs, proximal abdominals at ribcage, psoas Mobilization Type Sustained Pressure Intensity/Depth Moderate Body Position Hooklying Comments Sustained pressure with breath paraspinals Body Location lumbar Mobilization Type Myofascial Release,Strumming, Sustained Pressure Intensity/Depth Moderate Body Position Prone over pillow Comments good feedback response PT-OP-R Modalities Start: 02/19/21 13:37 Freq: Status: Active Protocol: Document 04/12/21 08:57 SAK (Rec: 04/12/21 09:46 SAK [id number]) Hot Pack/Cold Pack Treatment Hot Pack Location cervical and lumbar Patient Position Prone Treatment Duration (minutes) 15 PT-OP-S Aquatic Treatment Start: 02/19/21 13:37 Freq: Status: Active Protocol: Document 04/28/21 14:53 LJ (Rec: 04/28/21 15:13 LJ [id number]) Aquatics Treatment Pool Entry/Exit Pool Entry/Exit Method Stairs Assistance Independent Comments difficulty with coordination Water Walking Sideways Water Level Chest Level Level of Assistance Verbal Cues Comments hori AB/AD UEs [place] Water Level Chest Level Level of Assistance Verbal Cues Comments difficulty with coordination Backwards Water Level Chest Level Level of Assistance Verbal Cues Comments fwd BS arms Forwards Water Level Chest Level Walking Equipment UE paddles Level of Assistance Verbal Cues Comments difficulty with coordination Lower Extremity Exercises squats Body Position Standing Water Level Waist Level Reps/Duration 20 Comments cues for posture; holding onto wall 4 way hip Body Position Standing Water Level Waist Level Reps/Duration 10 ea B Comments holding onto wall; cues for posture Lower Extremity Stretches hip flexors Details at wall Body Position Standing Water Level Waist Level Reps/Duration 2 x 30 B HS, gastroc, soleus Details stairs Body Position Standing Water Level Waist Level Reps/Duration 2 x 30 B Upper Extremity Exercises ab/ad, fl/ext Body Position Standing Water Level Chest Level Reps/Duration 10 ea Comments emphasis on core stab Upper Extremity Stretches UE flexion Details at wall Body Position Standing Water Level Waist Level Reps/Duration 2 x 30 pectoral Details in corner Body Position Standing Water Level Neck Level Reps/Duration 2 x 30 Spinal Exercises anterior pelvic tilt Reps/Duration 5x Comments verbal and manual cues [place] Activities [place] Activities Bicycle,Bicycle Backwards, Cross Country Equipment blue float, #2 weights on LE's , black BBs Duration 12 PT-OP-T Assessment and Plan Start: 02/19/21 13:37 Freq: Status: Active Protocol: Document 04/28/21 14:53 LJ (Rec: 04/28/21 15:13 LJ [id number]) Physical Therapy Assessment Goals activity program Impairment pt does not have a conditioning program Short Term Goal (STG) pt will begin to participate 2 days of pool exercises and daily stretching routine. 03/23/21: pt will start in pool on 03/26/21. STG Duration 5 weeks Male Model Goal (LTG) pt will safely participate 2 pools days and 3 days for moderate intensity of strength training to improve his overall strength and posture. Pt received aquatic HEP 2021. Understands program and is able to do all exercises LTG Duration 10 weeks stiffness Impairment c/o significant stiffness at shoulders, knee and low back Short Term Goal (STG) pt will be demonstrate self efficacy to complete daily ROM routine to decrease his morning stiffness STG Duration 5 weeks Male Model Goal (LTG) pt will be reports decreased stiffness symptoms in the morning no more than 2 hours. LTG Duration 10 weeks chronic pain Impairment significant generalized pain 6 /10 throughout the body Short Term Goal (STG) pt will have decreased generalized pain to 4/10 throughout the body to improve his quality of life STG Duration 5 weeks Detention Goal (LTG) pt will have decreased generalized pain to 2 /10 throughout the body to improve his quality of life. LTG Duration 10 weeks 6 MWT Impairment will assess next session Impairment Assessment 03/23/21: 6MWT: 968 ft no AD. Assessment Summary Assessment Pt required frequent cues for core stabilization and postural alignment. He was led through all the HEP which was given to him. Still with flexed trunk but is able to correct. Still with difficulty attaining anterior pelvic tilt. Patient highly motivated to continue with aquatic exercises after discharge. Physical Therapy Plan Frequency and Duration Frequency of Treatment 2x/Week Duration of Treatment 10weeks Plan of Care Start Date 02/19/21 Plan of Care End Date 05/05/21 Therapeutic Interventions Therapeutic Interventions Aquatic Therapy,Balance Training,Gait Training,Home Exercise Program,Joint Mobilizations,Manual Therapy, Neuromuscular Re-education, Patient/Caregiver Education, Self-Care/Home Management,Soft Tissue Mobilization,Taping, Therapeutic Activities, Therapeutic Exercises Modalities Hot Packs,Traction- Mechanical Next Visit Focus/Plan Next Note Type Treatment Note Next Visit Plan Land: add self STM with use of tennis ball on wall. Aquatic: progress core stabilization ex, work on anterior pelvic tilt, conditioning and pectoral stretch as tolerated.
--- NOTE | 2021-04-29 14:57 | PT.OTN ---
Current Diagnoses Unspecified osteoarthritis, unspecified site (04/29/21) Other symptoms and signs involving the musculoskeletal system (04/29/21) Weakness (04/29/21) Other reduced mobility (04/29/21) Physical Therapy Treatment Note PT-OP-A Visit Information Start: 02/19/21 13:37 Freq: Status: Active Protocol: Document 04/29/21 10:35 SAK (Rec: 04/29/21 11:15 SAK [id number]) Out-Patient Physical Therapy Visit Information Visit Information Visit Type Treatment Note Visit Start Time 10:30 Visit Stop Time 11:15 Total Visit Minutes 45 Visit Number 01/26 Evaluation Information Evaluation Date 02/19/21 Precautions Precautions pt completed chemotherapy for his bladder cancer 6 weeks ago . chronic PA 2 back surgeries no ice pack PT-OP-B Current Condition Start: 02/19/21 13:37 Freq: Status: Active Protocol: Document 02/19/21 15:12 HH (Rec: 02/19/21 16:08 [email or web address]) Current Condition History of Current Condition Onset Date many years ago Current Complaints chronic pain for the whole body, morning stiffness, decreased stamina History of Current Condition Richardson is a 85yo male here for his chronic joint stiffness and pain, along with decreased stamina. He recently completed chemotherapy 6 weeks ago for his bladder cancer and he is in remission as his PCP. He will be reassessed in a couple months. His primary c /o his significant stiffness from shoulders, low back and knee. He has to take 3 ibuprofen and stay in hot tub every morning to get loosen up. He also c/o possible chemotherapy induced fatigue that he noticed his endurance has gone down. He can walk certain distance (grocery shop ) and feel fatigue drastically which causes him falling occasionally. (once every couple months) Pt has L1-L5 fusion 3-4 years ago and he has been getting cortisone injections on his R knee every 6 months to reduce pain. Current Functional Impairments (Reported) Functional Limitations- Mobility/Gait fatigue after grocery shop/ walking > 3000ft Personal Factors Other Personal Factors That May Effect pt completed chemotherapy for Therapy/Recovery his bladder cancer 6 weeks ago . chronic PA 2 back surgeries PT-OP-C Subjective Start: 02/19/21 13:37 Freq: Status: Active Protocol: Document 04/29/21 10:35 SAK (Rec: 04/29/21 11:15 SAK [id number]) OP-PT Subjective Patient Comments Patient Comments After today wants to do the exercises on his own, back off of PT. Tries to walk 30 min per day in the pak. Agreeable to follow-up appointment in 1 month in both aquatic and land-based PT to assess how he is doing and progress his HEP and aquatic exerise programs as indicated PT-OP-F Manual Assessment Start: 02/19/21 13:37 Freq: Status: Active Protocol: Document 02/19/21 15:12 HH (Rec: 02/19/21 16:08 [email or web address]) Manual Assessments Soft Tissue Assessment Soft Tissue Mobility Assessment hyperalgesia noted at his lumbar surgical site hyperalgesia noted at medial and inferior R knee significant tightness/ tonicity at bilateral pecs PT-OP-G Mobility & Gait Start: 02/19/21 13:37 Freq: Status: Active Protocol: Document 02/19/21 15:12 HH (Rec: 02/19/21 16:08 [email or web address]) OP Gait Assessment Comments Gait Comments pt walks with high R steppage gait with high knee flexion to loose up his knee PT-OP-H Neuro Start: 02/19/21 13:37 Freq: Status: Active Protocol: Document 02/19/21 15:12 HH (Rec: 02/19/21 16:08 [email or web address]) Sensation Evaluation Gross Sensation Gross Sensation WNL Deep Tendon Reflex & Clonus Assessment Deep Tendon Reflex Bilateral Achilles Deep Tendon Reflex 2+ Normal Bilateral Patellar Deep Tendon Reflex 2+ Normal PT-OP-J Posture/Palpation/Skin Start: 02/19/21 13:37 Freq: Status: Active Protocol: Document 02/19/21 15:12 HH (Rec: 02/19/21 16:08 [email or web address]) Posture Evaluation Position Standing Head/C-Spine Posture Forward Head T-Spine Posture Increased Kyphosis Shoulder Posture (L) Rounded,(R) Rounded Knee Posture (L) Excess Flexion,(R) Excess Flexion Comments Posture Comments pt is able to stand up straight with knee fully extended but reports getting tired with back PT-OP-K Range of Motion Start: 02/19/21 13:37 Freq: Status: Active Protocol: Document 02/19/21 15:12 HH (Rec: 02/19/21 16:08 [email or web address]) Shoulder Goniometric Range of Motion Shoulder Right Active Comments WFL able to reach overhead tightness and slight pain at top of shoulder Left Active Shoulder ROM WFL Yes Comments WFL able to reach overhead Hip Goniometric Range of Motion Hip Right Active Hip ROM WFL Yes Left Active Hip ROM WFL Yes Knee Goniometric Range of Motion Knee Right Knee ROM WFL Yes Left Knee ROM WFL Yes PT-OP-M Strength Start: 02/19/21 13:37 Freq: Status: Active Protocol: Document 02/19/21 15:12 HH (Rec: 02/19/21 16:08 HH [email or web address]) Shoulder Strength Shoulder Manual Muscle Testing Right Flexion 4+ Good+ Extension 4+ Good+ Abduction (C5) 4+ Good+ Left Flexion 4+ Good+ Extension 4+ Good+ Abduction (C5) 4+ Good+ Hip Strength Hip Manual Muscle Testing Right Flexion (L2) 4+ Good+ Extension (S1) 4+ Good+ Left Flexion (L2) 4+ Good+ Extension (S1) 4+ Good+ Knee Strength Knee Manual Muscle Testing Right Flexion (S2) 4+ Good+ Extension (L3) 4+ Good+ Left Flexion (S2) 4+ Good+ Extension (L3) 4+ Good+ PT-OP-Q Treatments Start: 02/19/21 13:37 Freq: Status: Active Protocol: Document 04/29/21 10:35 [facility] (Rec: 04/29/21 11:15 [facility] [id number]) Therapeutic Exercises Supine Exercises core progression Supine Exercise Name with UE movements thien and unil Side bilateral Resistance AROM, L1 TB Equipment Used supine over noodle on floor ( has pipe insulation noodle at home) Reps/Minutes x10 reps each Comments increased challenge with LE's closer together, core activation Anterior Pelvic Tilt Supine Exercise Name with legs bent and extended over pillow (added to HEP) Side bilateral Resistance AROM Equipment Used reviewed over pool noodle Comments Cues for pressing tailbone toward floor. Thoracic Lift Supine Exercise Name with head supported. LE extended with pillow under posterior thighs Side bilateral Resistance AROM- added to HEP Equipment Used Towel roll from quartered towel at midback, under head and upper thighs Reps/Minutes 5x 5 Comments Cues for lifting sternum/ scap retract glides w/ relaxing UE toward table. Anterior Thoracic stretch Supine Exercise Name pec stretch various ranges arm side> over head Resistance AROM Equipment Used over noodle, knees bent ( reviewed HEP) Reps/Minutes 1 min total Comments good feedback response- painfree LTR Reps/Minutes 10x2 Comments for HEP PT-OP-R Modalities Start: 02/19/21 13:37 Freq: Status: Active Protocol: Document 04/29/21 10:35 SAK (Rec: 04/29/21 14:57 SAK [id number]) Hot Pack/Cold Pack Treatment Hot Pack Location cervical and lumbar Patient Position Hooklying Treatment Duration (minutes) 15 PT-OP-S Aquatic Treatment Start: 02/19/21 13:37 Freq: Status: Active Protocol: Document 04/28/21 14:53 LJ (Rec: 04/28/21 15:13 LJ [id number]) Aquatics Treatment Pool Entry/Exit Pool Entry/Exit Method Stairs Assistance Independent Comments difficulty with coordination Water Walking Sideways Water Level Chest Level Level of Assistance Verbal Cues Comments hori AB/AD UEs [place] Water Level Chest Level Level of Assistance Verbal Cues Comments difficulty with coordination Backwards Water Level Chest Level Level of Assistance Verbal Cues Comments fwd BS arms Forwards Water Level Chest Level Walking Equipment UE paddles Level of Assistance Verbal Cues Comments difficulty with coordination Lower Extremity Exercises squats Body Position Standing Water Level Waist Level Reps/Duration 20 Comments cues for posture; holding onto wall 4 way hip Body Position Standing Water Level Waist Level Reps/Duration 10 ea B Comments holding onto wall; cues for posture Lower Extremity Stretches hip flexors Details at wall Body Position Standing Water Level Waist Level Reps/Duration 2 x 30 B HS, gastroc, soleus Details stairs Body Position Standing Water Level Waist Level Reps/Duration 2 x 30 B Upper Extremity Exercises ab/ad, fl/ext Body Position Standing Water Level Chest Level Reps/Duration 10 ea Comments emphasis on core stab Upper Extremity Stretches UE flexion Details at wall Body Position Standing Water Level Waist Level Reps/Duration 2 x 30 pectoral Details in corner Body Position Standing Water Level Neck Level Reps/Duration 2 x 30 Spinal Exercises anterior pelvic tilt Reps/Duration 5x Comments verbal and manual cues [place] Activities [place] Activities Bicycle,Bicycle Backwards, Cross [place] Equipment blue float, #2 weights on LE's , black BBs Duration 12 PT-OP-T Assessment and Plan Start: 02/19/21 13:37 Freq: Status: Active Protocol: Document 04/29/21 10:35 [facility] (Rec: 04/29/21 11:15 [facility] [id number]) Physical Therapy Assessment Goals activity program Impairment pt does not have a conditioning program Short Term Goal (STG) pt will begin to participate 2 days of pool exercises and daily stretching routine. 03/23/21: pt will start in pool on 03/26/21. STG Duration 5 weeks Shelter Goal (LTG) pt will safely participate 2 pools days and 3 days for moderate intensity of strength training to improve his overall strength and posture. Pt received aquatic HEP 2021. Understands program and is able to do all exercises LTG Duration 10 weeks stiffness Impairment c/o significant stiffness at shoulders, knee and low back Short Term Goal (STG) pt will be demonstrate self efficacy to complete daily ROM routine to decrease his morning stiffness STG Duration 5 weeks Maternity Nurse Goal (LTG) pt will be reports decreased stiffness symptoms in the morning no more than 2 hours. LTG Duration 10 weeks chronic pain Impairment significant generalized pain 6 /10 throughout the body Short Term Goal (STG) pt will have decreased generalized pain to 4/10 throughout the body to improve his quality of life 04/29/21: goal met STG Duration 5 weeks Maternity Nurse Goal (LTG) pt will have decreased generalized pain to 2 /10 throughout the body to improve his quality of life. 04/29/21: goal progress LTG Duration 10 weeks 6 MWT Impairment will assess next session Impairment Assessment 03/23/21: 6MWT: 968 ft no AD. 04/29/21: 6MWT: 1072 ft no AD Assessment Summary Assessment Patient now independent with aquatic exercise program and land-based exercise program. While I think he would benefit from further PT at this time patient would like to continue with HEP and aquatic exercise program independently. He is agreeable to returning to both aquatic and landl-based PT in one month to assess how he is doing and progress/ modify aquatic ex program and HEP as indicated. Physical Therapy Plan Frequency and Duration Frequency of Treatment 2x/Week Duration of Treatment 10weeks Plan of Care Start Date 02/19/21 Plan of Care End Date 05/05/21 Therapeutic Interventions Therapeutic Interventions Aquatic Therapy,Balance Training,Gait Training,Home Exercise Program,Joint Mobilizations,Manual Therapy, Neuromuscular Re-education, Patient/Caregiver Education, Self-Care/Home Management,Soft Tissue Mobilization,Taping, Therapeutic Activities, Therapeutic Exercises Modalities Hot Packs,Traction- Mechanical Next Visit Focus/Plan Next Note Type Progress Note Next Visit Plan follow-up in 1 month for land and aquatic PT< detrimine need for further PT.
--- NOTE | 2021-04-29 16:00 | PT.OPPOC ---
Physical, Occupational & Speech Therapy At [facility] Current Diagnoses Unspecified osteoarthritis, unspecified site (04/29/21) Other symptoms and signs involving the musculoskeletal system (04/29/21) Weakness (04/29/21) Other reduced mobility (04/29/21) Visit Care Team Role Provider Type Deonte Ricks MD Attending Provider Physician Family Provider Primary Care Provider Referring Provider Specialty: Internal Medicine Address: [address] [place] [address], [address], [place], [address] Email: [email or web address] Plan Of Care PT-OP-T Assessment and Plan Start: 02/19/21 13:37 Freq: Status: Active Protocol: Document 04/29/21 10:35 SAK (Rec: 04/29/21 11:15 SAK [id number]) Physical Therapy Assessment Goals activity program Impairment pt does not have a conditioning program Short Term Goal (STG) pt will begin to participate 2 days of pool exercises and daily stretching routine. 03/23/21: pt will start in pool on 03/26/21. STG Duration 5 weeks Snf Goal (LTG) pt will safely participate 2 pools days and 3 days for moderate intensity of strength training to improve his overall strength and posture. Pt received aquatic HEP 2021. Understands program and is able to do all exercises LTG Duration 10 weeks stiffness Impairment c/o significant stiffness at shoulders, knee and low back Short Term Goal (STG) pt will be demonstrate self efficacy to complete daily ROM routine to decrease his morning stiffness STG Duration 5 weeks Snf Goal (LTG) pt will be reports decreased stiffness symptoms in the morning no more than 2 hours. LTG Duration 10 weeks chronic pain Impairment significant generalized pain 6 /10 throughout the body Short Term Goal (STG) pt will have decreased generalized pain to 4/10 throughout the body to improve his quality of life 04/29/21: goal met STG Duration 5 weeks Wine Bottle Inspector Goal (LTG) pt will have decreased generalized pain to 2 /10 throughout the body to improve his quality of life. 04/29/21: goal progress LTG Duration 10 weeks 6 MWT Impairment will assess next session Impairment Assessment 03/23/21: 6MWT: 968 ft no AD. 04/29/21: 6MWT: 1072 ft no AD Assessment Summary Assessment Patient now independent with aquatic exercise program and land-based exercise program. While I think he would benefit from further PT at this time patient would like to continue with HEP and aquatic exercise program independently. He is agreeable to returning for follow-up appointments in both aquatic and land-based PT in one month to assess how he is doing and progress/modify aquatic ex program and HEP as indicated. Physical Therapy Plan Frequency and Duration Frequency of Treatment 2x/Week Duration of Treatment 1 month Plan of Care Start Date 04/29/21 Plan of Care End Date 06/07/21 Therapeutic Interventions Therapeutic Interventions Aquatic Therapy,Balance Training,Gait Training,Home Exercise Program,Joint Mobilizations,Manual Therapy, Neuromuscular Re-education, Patient/Caregiver Education, Self-Care/Home Management,Soft Tissue Mobilization,Taping, Therapeutic Activities, Therapeutic Exercises Modalities Hot Packs,Traction- Mechanical Next Visit Focus/Plan Next Note Type Progress Note Next Visit Plan follow-up in 1 month for land and aquatic PT< determine need for further PT. Plan of Care Dates Plan of Care Start Date 04/29/21 Plan of Care End Date 06/07/21 Electronically Signed by: Giuliana Hardy, PT 05/04/21 0833 Please Sign and Return: I have reviewed this Plan of Care and certify that the skilled therapy services above are required to meet the patient?s needs. Physician Signature Date Printed Name and Credentials Clinical Instructor Signature Printed Name and Credentials
--- NOTE | 2021-04-29 16:00 | PT.OTRE ---
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/10) DDD (degenerative disc disease), lumbar History of inguinal hernia repair (2016) History of spinal surgery (2015) History of spinal surgery (2016) Hyperlipidemia Hypertension Right inguinal hernia (02/2014) S/P TURP (status post transurethral resection of prostate) Spinal stenosis of lumbar region (06/17/15) Villous adenoma of colon (1998) Surgical History (Last Reviewed 11/29/20 @ 10:57 by Richardson Wray MD) History of inguinal hernia repair (2016) History of spinal surgery (2015) History of spinal surgery (2016) S/P TURP (status post transurethral resection of prostate) Status post arthroscopy (2010) Status post colectomy (1979) Status post colonoscopy (2009) Visit Care Team Role Provider Type Deonte Ricks MD Attending Provider Physician Family Provider Primary Care Provider Referring Provider Specialty: Internal Medicine Address: [address] [place] [address], [address], [facility] Email: [email or web address] Physical Therapy Re-Evaluation PT-OP-A Visit Information Start: 02/19/21 13:37 Freq: Status: Active Protocol: Document 04/29/21 10:35 SAK (Rec: 04/29/21 11:15 SAK [id number]) Out-Patient Physical Therapy Visit Information Visit Information Visit Type Treatment Note Visit Start Time 10:30 Visit Stop Time 11:15 Total Visit Minutes 45 Visit Number 01/26 Evaluation Information Evaluation Date 02/19/21 Precautions Precautions pt completed chemotherapy for his bladder cancer 6 weeks ago . chronic PA 2 back surgeries no ice pack PT-OP-B Current Condition Start: 02/19/21 13:37 Freq: Status: Active Protocol: Document 02/19/21 15:12 HH (Rec: 02/19/21 16:08 HH [email or web address]) Current Condition History of Current Condition Onset Date many years ago Current Complaints chronic pain for the whole body, morning stiffness, decreased stamina History of Current Condition Richardson is a 85yo male here for his chronic joint stiffness and pain, along with decreased stamina. He recently completed chemotherapy 6 weeks ago for his bladder cancer and he is in remission as his PCP. He will be reassessed in a couple months. His primary c /o his significant stiffness from shoulders, low back and knee. He has to take 3 ibuprofen and stay in hot tub every morning to get loosen up. He also c/o possible chemotherapy induced fatigue that he noticed his endurance has gone down. He can walk certain distance (grocery shop ) and feel fatigue drastically which causes him falling occasionally. (once every couple months) Pt has L1-L5 fusion 3-4 years ago and he has been getting cortisone injections on his R knee every 6 months to reduce pain. Current Functional Impairments (Reported) Functional Limitations- Mobility/Gait fatigue after grocery shop/ walking > 3000ft Personal Factors Other Personal Factors That May Effect pt completed chemotherapy for Therapy/Recovery his bladder cancer 6 weeks ago . chronic PA 2 back surgeries PT-OP-C Subjective Start: 02/19/21 13:37 Freq: Status: Active Protocol: Document 04/29/21 10:35 [facility] (Rec: 04/29/21 11:15 [facility] [id number]) OP-PT Subjective Patient Comments Patient Comments After today wants to do the exercises on his own, back off of PT. Tries to walk 30 min per day in the pak. Agreeable to follow-up appointment in 1 month in both aquatic and land-based PT to assess how he is doing and progress his HEP and aquatic exerise programs as indicated PT-OP-F Manual Assessment Start: 02/19/21 13:37 Freq: Status: Active Protocol: Document 02/19/21 15:12 (Rec: 02/19/21 16:08 [email or web address]) Manual Assessments Soft Tissue Assessment Soft Tissue Mobility Assessment hyperalgesia noted at his lumbar surgical site hyperalgesia noted at medial and inferior R knee significant tightness/ tonicity at bilateral pecs PT-OP-G Mobility & Gait Start: 02/19/21 13:37 Freq: Status: Active Protocol: Document 02/19/21 15:12 HH (Rec: 02/19/21 16:08 [email or web address]) OP Gait Assessment Comments Gait Comments pt walks with high R steppage gait with high knee flexion to loose up his knee PT-OP-H Neuro Start: 02/19/21 13:37 Freq: Status: Active Protocol: Document 02/19/21 15:12 HH (Rec: 02/19/21 16:08 [email or web address]) Sensation Evaluation Gross Sensation Gross Sensation WNL Deep Tendon Reflex & Clonus Assessment Deep Tendon Reflex Bilateral Achilles Deep Tendon Reflex 2+ Normal Bilateral Patellar Deep Tendon Reflex 2+ Normal PT-OP-J Posture/Palpation/Skin Start: 02/19/21 13:37 Freq: Status: Active Protocol: Document 02/19/21 15:12 HH (Rec: 02/19/21 16:08 [email or web address]) Posture Evaluation Position Standing Head/C-Spine Posture Forward Head T-Spine Posture Increased Kyphosis Shoulder Posture (L) Rounded,(R) Rounded Knee Posture (L) Excess Flexion,(R) Excess Flexion Comments Posture Comments pt is able to stand up straight with knee fully extended but reports getting tired with back PT-OP-K Range of Motion Start: 02/19/21 13:37 Freq: Status: Active Protocol: Document 02/19/21 15:12 HH (Rec: 02/19/21 16:08 [email or web address]) Shoulder Goniometric Range of Motion Shoulder Measured in Degrees Right Active Comments WFL able to reach overhead tightness and slight pain at top of shoulder Left Active Shoulder ROM WFL Yes Comments WFL able to reach overhead Hip Goniometric Range of Motion Hip Measured in Degrees Right Active Hip ROM WFL Yes Left Active Hip ROM WFL Yes Knee Goniometric Range of Motion Knee Measured in Degrees Right Knee ROM WFL Yes Left Knee ROM WFL Yes PT-OP-M Strength Start: 02/19/21 13:37 Freq: Status: Active Protocol: Document 02/19/21 15:12 HH (Rec: 02/19/21 16:08 [email or web address]) Shoulder Strength Shoulder Manual Muscle Testing Right Flexion 4+ Good+ Extension 4+ Good+ Abduction (C5) 4+ Good+ Left Flexion 4+ Good+ Extension 4+ Good+ Abduction (C5) 4+ Good+ Hip Strength Hip Manual Muscle Testing Right Flexion (L2) 4+ Good+ Extension (S1) 4+ Good+ Left Flexion (L2) 4+ Good+ Extension (S1) 4+ Good+ Knee Strength Knee Manual Muscle Testing Right Flexion (S2) 4+ Good+ Extension (L3) 4+ Good+ Left Flexion (S2) 4+ Good+ Extension (L3) 4+ Good+ PT-OP-Q Treatments Start: 02/19/21 13:37 Freq: Status: Active Protocol: Document 04/29/21 10:35 [facility] (Rec: 04/29/21 11:15 [facility] [id number]) Therapeutic Exercises Supine Exercises core progression Supine Exercise Name with UE movements thien and unil Side bilateral Resistance AROM, L1 TB Equipment Used supine over noodle on floor ( has pipe insulation noodle at home) Reps/Minutes x10 reps each Comments increased challenge with LE's closer together, core activation Anterior Pelvic Tilt Supine Exercise Name with legs bent and extended over pillow (added to HEP) Side bilateral Resistance AROM Equipment Used reviewed over pool noodle Comments Cues for pressing tailbone toward floor. Thoracic Lift Supine Exercise Name with head supported. LE extended with pillow under posterior thighs Side bilateral Resistance AROM- added to HEP Equipment Used Towel roll from quartered towel at midback, under head and upper thighs Reps/Minutes 5x 5 Comments Cues for lifting sternum/ scap retract glides w/ relaxing UE toward table. Anterior Thoracic stretch Supine Exercise Name pec stretch various ranges arm side> over head Resistance AROM Equipment Used over noodle, knees bent ( reviewed HEP) Reps/Minutes 1 min total Comments good feedback response- painfree LTR Reps/Minutes 10x2 Comments for HEP PT-OP-R Modalities Start: 02/19/21 13:37 Freq: Status: Active Protocol: Document 04/29/21 10:35 [facility] (Rec: 04/29/21 14:57 [facility] [id number]) Hot Pack/Cold Pack Treatment Hot Pack Location cervical and lumbar Patient Position Hooklying Treatment Duration (minutes) 15 PT-OP-T Assessment and Plan Start: 02/19/21 13:37 Freq: Status: Active Protocol: Document 04/29/21 10:35 [facility] (Rec: 04/29/21 11:15 [facility] [id number]) Physical Therapy Assessment Goals activity program Impairment pt does not have a conditioning program Short Term Goal (STG) pt will begin to participate 2 days of pool exercises and daily stretching routine. 03/23/21: pt will start in pool on 03/26/21. STG Duration 5 weeks Intermediate Goal (LTG) pt will safely participate 2 pools days and 3 days for moderate intensity of strength training to improve his overall strength and posture. Pt received aquatic HEP 2021. Understands program and is able to do all exercises LTG Duration 10 weeks stiffness Impairment c/o significant stiffness at shoulders, knee and low back Short Term Goal (STG) pt will be demonstrate self efficacy to complete daily ROM routine to decrease his morning stiffness STG Duration 5 weeks Intermediate Goal (LTG) pt will be reports decreased stiffness symptoms in the morning no more than 2 hours. LTG Duration 10 weeks chronic pain Impairment significant generalized pain 6 /10 throughout the body Short Term Goal (STG) pt will have decreased generalized pain to 4/10 throughout the body to improve his quality of life 04/29/21: goal met STG Duration 5 weeks Intermediate Goal (LTG) pt will have decreased generalized pain to 2 /10 throughout the body to improve his quality of life. 04/29/21: goal progress LTG Duration 10 weeks 6 MWT Impairment will assess next session Impairment Assessment 03/23/21: 6MWT: 968 ft no AD. 04/29/21: 6MWT: 1072 ft no AD Assessment Summary Assessment Patient now independent with aquatic exercise program and land-based exercise program. While I think he would benefit from further PT at this time patient would like to continue with HEP and aquatic exercise program independently. He is agreeable to returning for follow-up appointments in both aquatic and land-based PT in one month to assess how he is doing and progress/modify aquatic ex program and HEP as indicated. Physical Therapy Plan Frequency and Duration Frequency of Treatment 2x/Week Duration of Treatment 1 month Plan of Care Start Date 04/29/21 Plan of Care End Date 06/07/21 Therapeutic Interventions Therapeutic Interventions Aquatic Therapy,Balance Training,Gait Training,Home Exercise Program,Joint Mobilizations,Manual Therapy, Neuromuscular Re-education, Patient/Caregiver Education, Self-Care/Home Management,Soft Tissue Mobilization,Taping, Therapeutic Activities, Therapeutic Exercises Modalities Hot Packs,Traction- Mechanical Next Visit Focus/Plan Next Note Type Progress Note Next Visit Plan follow-up in 1 month for land and aquatic PT< determine need for further PT.
--- NOTE | 2021-05-20 08:41 | PT.OPDS ---
Current Diagnoses Unspecified osteoarthritis, unspecified site (04/29/21) Other symptoms and signs involving the musculoskeletal system (04/29/21) Weakness (04/29/21) Other reduced mobility (04/29/21) Visit Care Team Role Provider Type Deonte Ricks MD Attending Provider Physician Family Provider Primary Care Provider Referring Provider Specialty: Internal Medicine Address: [address] [place] [address], [facility] Email: [email or web address] Visit Number Visit Number 01/26 Discharge Summary PT-OP-B Current Condition Start: 02/19/21 13:37 Freq: Status: Active Protocol: Document 02/19/21 15:12 (Rec: 02/19/21 16:08 [email or web address]) Current Condition History of Current Condition Onset Date many years ago Current Complaints chronic pain for the whole body, morning stiffness, decreased stamina History of Current Condition Richardson is a 85yo male here for his chronic joint stiffness and pain, along with decreased stamina. He recently completed chemotherapy 6 weeks ago for his bladder cancer and he is in remission as his PCP. He will be reassessed in a couple months. His primary c /o his significant stiffness from shoulders, low back and knee. He has to take 3 ibuprofen and stay in hot tub every morning to get loosen up. He also c/o possible chemotherapy induced fatigue that he noticed his endurance has gone down. He can walk certain distance (grocery shop ) and feel fatigue drastically which causes him falling occasionally. (once every couple months) Pt has L1-L5 fusion 3-4 years ago and he has been getting cortisone injections on his R knee every 6 months to reduce pain. Current Functional Impairments (Reported) Functional Limitations- Mobility/Gait fatigue after grocery shop/ walking > 3000ft Personal Factors Other Personal Factors That May Effect pt completed chemotherapy for Therapy/Recovery his bladder cancer 6 weeks ago . chronic PA 2 back surgeries PT-OP-C Subjective Start: 02/19/21 13:37 Freq: Status: Active Protocol: Document 04/29/21 10:35 SAK (Rec: 04/29/21 11:15 SAK [id number]) OP-PT Subjective Patient Comments Patient Comments After today wants to do the exercises on his own, back off of PT. Tries to walk 30 min per day in the pak. Agreeable to follow-up appointment in 1 month in both aquatic and land-based PT to assess how he is doing and progress his HEP and aquatic exerise programs as indicated PT-OP-F Manual Assessment Start: 02/19/21 13:37 Freq: Status: Active Protocol: Document 02/19/21 15:12 (Rec: 02/19/21 16:08 [email or web address]) Manual Assessments Soft Tissue Assessment Soft Tissue Mobility Assessment hyperalgesia noted at his lumbar surgical site hyperalgesia noted at medial and inferior R knee significant tightness/ tonicity at bilateral pecs PT-OP-G Mobility & Gait Start: 02/19/21 13:37 Freq: Status: Active Protocol: Document 02/19/21 15:12 HH (Rec: 02/19/21 16:08 [email or web address]) OP Gait Assessment Comments Gait Comments pt walks with high R steppage gait with high knee flexion to loose up his knee PT-OP-H Neuro Start: 02/19/21 13:37 Freq: Status: Active Protocol: Document 02/19/21 15:12 HH (Rec: 02/19/21 16:08 [email or web address]) Sensation Evaluation Gross Sensation Gross Sensation WNL Deep Tendon Reflex & Clonus Assessment Deep Tendon Reflex Bilateral Achilles Deep Tendon Reflex 2+ Normal Bilateral Patellar Deep Tendon Reflex 2+ Normal PT-OP-J Posture/Palpation/Skin Start: 02/19/21 13:37 Freq: Status: Active Protocol: Document 02/19/21 15:12 HH (Rec: 02/19/21 16:08 [email or web address]) Posture Evaluation Position Standing Head/C-Spine Posture Forward Head T-Spine Posture Increased Kyphosis Shoulder Posture (L) Rounded,(R) Rounded Knee Posture (L) Excess Flexion,(R) Excess Flexion Comments Posture Comments pt is able to stand up straight with knee fully extended but reports getting tired with back PT-OP-K Range of Motion Start: 02/19/21 13:37 Freq: Status: Active Protocol: Document 02/19/21 15:12 HH (Rec: 02/19/21 16:08 [email or web address]) Shoulder Goniometric Range of Motion Shoulder Right Active Comments WFL able to reach overhead tightness and slight pain at top of shoulder Left Active Shoulder ROM WFL Yes Comments WFL able to reach overhead Hip Goniometric Range of Motion Hip Right Active Hip ROM WFL Yes Left Active Hip ROM WFL Yes Knee Goniometric Range of Motion Knee Right Knee ROM WFL Yes Left Knee ROM WFL Yes PT-OP-M Strength Start: 02/19/21 13:37 Freq: Status: Active Protocol: Document 02/19/21 15:12 (Rec: 02/19/21 16:08 [email or web address]) Shoulder Strength Shoulder Manual Muscle Testing Right Flexion 4+ Good+ Extension 4+ Good+ Abduction (C5) 4+ Good+ Left Flexion 4+ Good+ Extension 4+ Good+ Abduction (C5) 4+ Good+ Hip Strength Hip Manual Muscle Testing Right Flexion (L2) 4+ Good+ Extension (S1) 4+ Good+ Left Flexion (L2) 4+ Good+ Extension (S1) 4+ Good+ Knee Strength Knee Manual Muscle Testing Right Flexion (S2) 4+ Good+ Extension (L3) 4+ Good+ Left Flexion (S2) 4+ Good+ Extension (L3) 4+ Good+ PT-OP-T Assessment and Plan Start: 02/19/21 13:37 Freq: Status: Active Protocol: Document 05/20/21 08:40 [facility] (Rec: 05/20/21 08:40 SAK [id number]) Physical Therapy Plan Discharge Physical Therapy Discharge Reasons Change in Medical Status Discharge Comments discharge due to heart attack, patient doing cardiac rehab
== END 2021-05-21 08:52 ==
LOC: PHYS 11:15
PROVIDERS: Family Provider Student in an Organized Health Care Education/Training Program; PCP Student in an Organized Health Care Education/Training Program; Referring Provider Student in an Organized Health Care Education/Training Program; Visit Provider Student in an Organized Health Care Education/Training Program
DX: R53.1 Weakness (principal); M19.90 Unspecified osteoarthritis, unspecified site; R29.898 Other symptoms and signs involving the musculoskeletal system; Z74.09 Other reduced mobility
CPT/HCPCS: 97110; 97113; 97140; 97163; 97535

== ENCOUNTER → 2021-07-27 12:05 | Outpatient (CLI) | payer OTHER, SELFPAY ==
[2021-07-27 13:21] LABS: Add Manual Diff / Slide Review NO; Basophils Absolute Auto 100 /uL (0-100); Basophils Percent Auto 1.8 % (0-2); Eosinophils Absolute Auto 300 /uL (0-450); Eosinophils Percent Auto 4.2 % (2-4); Hematocrit 44.3 % (41-53); Lymphocytes Absolute Auto 1200 /uL (1100-4500); Lymphocytes Percent Auto 18.8 % (25-40); Mean Corpuscular HGB Conc 33.9 % (30-36); Mean Corpuscular Hemoglobin 30.3 PG (26-34); Mean Corpuscular Volume 89.4 fL (80-100); Monocytes Absolute Auto 900 /uL (0-900); Monocytes Percent Auto 13.3 % (3-14); Neutrophils Absolute Auto 4000 /uL (1500-7000); Neutrophils Percent Auto 61.9 % (50-75); Platelet Count 229 X10^3/uL (150-400); Red Blood Cell Count 4.95 X10^6/uL (4.5-5.9); Red Cell Distribution Width 14.6 % (11.6-14.8); White Blood Cell Count 6.5 X10^3/uL (4.5-11.0)
[2021-07-27 13:39] LABS: BUN Creatinine Ratio 21.6 (6-22); Blood Urea Nitrogen 16 mg/dL (9-20); Calcium 10.1 mg/dL (8.4-10.2); Carbon Dioxide 31 mmol/L (22-32); Chloride 104 mmol/L (98-107); Estimated Glomerular Filt Rate > 60 mL/min (>60); Glucose 64 mg/dL (80-110); HEMOLYSIS < 15 (0-50); Potassium 4.4 mmol/L (3.4-5.1); Sodium 140 mmol/L (137-145)
== END ==
PROVIDERS: Family Provider Student in an Organized Health Care Education/Training Program; PCP Student in an Organized Health Care Education/Training Program; Referring Provider Internal Medicine Interventional Cardiology; Visit Provider Internal Medicine Interventional Cardiology
DX: R53.83 Other fatigue (principal)
CPT/HCPCS: 36415; 80048; 84443; 85025

== ENCOUNTER → 2021-09-27 12:03 | Outpatient (CLI) | payer OTHER, SELFPAY ==
[2021-09-27 18:16] LABS: Vitamin B12 > 1000 pg/mL (239-931)
== END ==
PROVIDERS: Family Provider Student in an Organized Health Care Education/Training Program; PCP Student in an Organized Health Care Education/Training Program; Referring Provider Student in an Organized Health Care Education/Training Program; Visit Provider Student in an Organized Health Care Education/Training Program
DX: R53.1 Weakness (principal)
CPT/HCPCS: 36415; 82607

== ENCOUNTER 2021-10-21 14:15 | Outpatient (RCR) | payer OTHER, SELFPAY | END 2021-10-21 16:15 | LOC: CAR 14:15 | PROVIDERS: Family Provider Student in an Organized Health Care Education/Training Program; PCP Student in an Organized Health Care Education/Training Program; Referring Provider Internal Medicine Interventional Cardiology; Visit Provider Internal Medicine Interventional Cardiology | DX: I21.02 ST elevation (STEMI) myocardial infarction involving left anterior descending coronary artery (principal) | CPT/HCPCS: 93798 ==

== ENCOUNTER → 2021-12-01 09:53 | Outpatient (CLI) | payer OTHER, SELFPAY ==
[2021-12-01 10:54] LABS: Add Manual Diff / Slide Review NO; Basophils Absolute Auto 100 /uL (0-100); Basophils Percent Auto 1.3 % (0-2); Eosinophils Absolute Auto 100 /uL (0-450); Hematocrit 44.3 % (41-53); Hemoglobin 14.9 g/dL (13.5-17.5); Lymphocytes Absolute Auto 1100 /uL (1100-4500); Lymphocytes Percent Auto 16.4 % (25-40); Mean Corpuscular HGB Conc 33.8 % (30-36); Mean Corpuscular Hemoglobin 30.6 PG (26-34); Mean Corpuscular Volume 90.6 fL (80-100); Monocytes Absolute Auto 700 /uL (0-900); Monocytes Percent Auto 10.4 % (3-14); Neutrophils Absolute Auto 4600 /uL (1500-7000); Neutrophils Percent Auto 69.9 % (50-75); Platelet Count 215 X10^3/uL (150-400); Red Blood Cell Count 4.89 X10^6/uL (4.5-5.9); Red Cell Distribution Width 13.6 % (11.6-14.8); White Blood Cell Count 6.6 X10^3/uL (4.5-11.0)
[2021-12-01 11:51] LABS: Blood Urea Nitrogen 18 mg/dL (9-20); Calcium 9.7 mg/dL (8.4-10.2); Carbon Dioxide 24 mmol/L (22-32); Chloride 105 mmol/L (98-107); Cholesterol 147 mg/dL (140-199); Estimated Glomerular Filt Rate > 60 mL/min (>60); Glucose 100 mg/dL (80-110); HDL Cholesterol 59 mg/dL (40-60); HEMOLYSIS < 15 (0-50); LDL Cholesterol Calculated 74 mg/dL (<100); Potassium 4.2 mmol/L (3.4-5.1); Sodium 137 mmol/L (137-145); Triglycerides 69 mg/dL (35-150)
== END ==
PROVIDERS: Family Provider Student in an Organized Health Care Education/Training Program; PCP Student in an Organized Health Care Education/Training Program; Referring Provider Internal Medicine Interventional Cardiology; Visit Provider Internal Medicine Interventional Cardiology
DX: I21.02 ST elevation (STEMI) myocardial infarction involving left anterior descending coronary artery (principal)
CPT/HCPCS: 36415; 80048; 80061; 85025

== ENCOUNTER → 2022-06-29 12:36 | Outpatient (CLI) | payer OTHER, SELFPAY ==
--- NOTE | 2022-06-29 | DI.ECHO.S_ITS ---
[facility] +---------+ : : 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 Moderate hypokinesis of small apical anteriior wall and apex. The aortic valve is mildly calcified. Mild mitral regurgitation. Mild tricuspid regurgitation. The ascending aorta is mildly enlarged. Comparison is made with the echocardiogram of 05/18/2021, LV function has improved. Procedure: A two-dimensional transthoracic echocardiogram with color flow and Doppler was performed. The study quality was technically adequate. Comparison is made with the echocardiogram of 05/18/2021. The patient was in sinus rhythm with heart rates between 65-70 bpm during the exam. Left Ventricle: The left ventricle is normal in size and wall thickness. The ejection fraction is estimated to be 55-60%. There is apical anterior wall moderate hypokinesis. There is apical moderate hypokinesis. There are no other obvious focal wall motion abnormalities. Right Ventricle: The right ventricle is normal in size and function. Atria: The left atrial size is normal. Right atrial size is normal. There is no Doppler evidence for an interatrial shunt. Mitral Valve: The mitral valve is normal in structure and function. There is mild mitral regurgitation. Aortic Valve: The aortic valve is mildly calcified. The aortic valve opens well. There is no aortic valve stenosis. No aortic regurgitation is present. Tricuspid Valve: The tricuspid valve is normal in structure and function. There is mild tricuspid regurgitation. Pulmonary artery pressures cannot be estimated because of the lack of a measurable TR jet velocity. Pulmonic Valve: The pulmonic valve is not well visualized. There is mild pulmonic regurgitation. Great Vessels: The aortic root is normal size. The ascending aorta is mildly enlarged. The IVC is of normal diameter and collapses greater than 50% with a sniff. This suggests a low right atrial pressure of 3 mm Hg. Pericardium/ Pleura There is no pericardial effusion. There is no pleural effusion. MMode/2D Measurements & Calculations LVIDd: 5.2 cm LVOT diam: 2.3 cm LVIDs: 3.6 cm Ao root diam: 3.8 cm FS: 30.0 % asc Aorta Diam: 4.0 cm EPSS: 1.3 cm Ao Arch Diam (Prox Trans): 2.3 cm IVSd: 0.93 cm LVPWd: 0.76 cm LV lira. diameter/BSA (cm/m^2): 2.6 LV sys. diameter/BSA (cm/m^2): 1.8 LA A2 area: 18.3 cm2 RA long axis: 4.8 cm LA A4 area: 17.9 cm2 RA area: 16.0 cm2 LA length (vol): 4.9 cm RA vol: 45.0 ml LA vol: 56.3 ml RA : 22.3 ml/m2 LA vol index: 28.0 ml/m2 IVC diam: 1.9 cm RVD1 (basal): 3.1 cm RVD2 (mid): 2.5 cm TAPSE: 1.4 cm Doppler Measurements & Calculations Ao V2 max: 102.0 cm/sec LVOT Max Mau: 70.9 cm/sec Ao V2 mean: 68.1 cm/sec LV V1 max P.0 mmHg Ao max P.2 mmHg LV V1 VTI: 15.9 cm Ao mean P.1 mmHg LISA(I,D): 2.9 cm2 Ao V2 VTI: 21.8 cm LISA(V,D): 2.8 cm2 sev ratio: 0.73 LISA indexed to BSA (cm^2/m^2): 1.5 MV E max mau: 51.4 cm/sec PA V2 max: 82.4 cm/sec MV A max mau: 68.0 cm/sec PA V2 mean: 58.3 cm/sec MV E/A: 0.76 PA mean P.5 mmHg Med Peak E' Mau: 4.2 cm/sec PA pr(Accel): 41.3 mmHg E/E' med: 12.3 Lat Peak E' Mau: 5.3 cm/sec E/E' lat: 9.7 E/e' average: 11.0 MV dec time: 0.23 sec SV(LVOT): 63.6 ml Electronically signed by: Héctor Forrester on Reading Physician:07/07/2022 06:50 AM
== END ==
PROVIDERS: Family Provider Student in an Organized Health Care Education/Training Program; PCP Student in an Organized Health Care Education/Training Program; Referring Provider Internal Medicine Interventional Cardiology; Visit Provider Internal Medicine Interventional Cardiology
DX: I08.1 Rheumatic disorders of both mitral and tricuspid valves (principal); I25.2 Old myocardial infarction; I77.89 Other specified disorders of arteries and arterioles
CPT/HCPCS: 93306

== ENCOUNTER → 2022-07-11 08:33 | Outpatient (CLI) | payer OTHER, SELFPAY ==
[2022-07-11 09:47] LABS: Blood Urea Nitrogen 20 mg/dL (9-20); Calcium 9.3 mg/dL (8.4-10.2); Carbon Dioxide 28 mmol/L (22-32); Chloride 103 mmol/L (98-107); Cholesterol 158 mg/dL (140-199); Estimated Glomerular Filt Rate > 60 mL/min (>60); Glucose 97 mg/dL (80-110); HDL Cholesterol 64 mg/dL (40-60); HEMOLYSIS < 15 (0-50); LDL Cholesterol Calculated 77 mg/dL (<100); Potassium 4.1 mmol/L (3.4-5.1); Sodium 137 mmol/L (137-145); Triglycerides 84 mg/dL (35-150)
== END ==
PROVIDERS: Family Provider Student in an Organized Health Care Education/Training Program; PCP Student in an Organized Health Care Education/Training Program; Referring Provider Internal Medicine Interventional Cardiology; Visit Provider Internal Medicine Interventional Cardiology
DX: I25.2 Old myocardial infarction (principal)
CPT/HCPCS: 36415; 80048; 80061

== ENCOUNTER → 2022-07-22 10:10 | Outpatient (CLI) | payer OTHER, SELFPAY ==
--- NOTE | 2022-07-22 | DI.CT.S_ITS ---
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 After the administration of intravenous contrast, 5 mm thick images acquired from the diaphragm to the symphysis pubis after a 10-minute delay. 2 mm thick coronal and sagittal reformats were then performed of the kidneys and ureters. For radiation dose reduction, the following was used: automated exposure control, adjustment of mA and/or kV according to patient size. COMPARISON: [facility], CT, CT ABDOMEN PELVIS WO/W CON, 07/30/2019, 11:56. [facility], CT, CT ABDOMEN PELVIS W CON, 08/27/2020, 11:56. FINDINGS: Image quality: Excellent. Lung bases: Bibasilar scarring. Normal size heart. Urinary system: Both kidneys are normal in size, without hydronephrosis or nephrolithiasis on pre-contrast images. No perinephric fat stranding. There is normal bilateral renal enhancement. Nonenhancing exophytic 1.5 cm cystic structure arising from the anterior left kidney. No solid renal parenchymal masses. Renal calyces appear normal in morphology when filled with contrast. The proximal ureters appear normal in caliber without filling defects. Distal ureters are nondilated, but non-opacified. No visible calcifications. Posterior urinary bladder wall demonstrates minor diffuse thickening and minor mucosal irregularity. No discrete mass is seen. No calcified bladder stones. Other solid organs: Liver is normal in size and enhancement. Gallbladder has a normal CT appearance without calcification. There is mild intra and proximal extrahepatic biliary dilatation without visible calcification. The spleen is normal size. Adrenal glands are normal. In the tail of pancreas, there is a mildly enhancing, slightly hyperdense irregular mass measuring 2.2 x 2.1 x 1.7 cm with an adjacent coarse calcification along the superior margin. Distal to the mass, the pancreas is atrophic and the pancreatic duct is dilated. There are two punctate calcifications in the pancreatic tail. The proximal pancreas is otherwise unremarkable, the diminutive in size and difficult to evaluate. Peritoneum and bowel: The stomach is decompressed. There are no fluid-filled dilated small bowel loops. Surgical anastomosis is present in the colorectal region. Increased quantity of solid stool present throughout the colon. A normal appendix is present. Nodes and vessels: No retroperitoneal adenopathy. Mesenteric adenopathy is difficult to assess given lack of oral contrast. Aorta and inferior vena cava are normal in size. Tortuous aortic course. Mild abdominal aortic atherosclerotic calcification. Abdominal wall: No ventral hernias. Pelvis: Trace fluid in the anterior right lower quadrant of uncertain etiology. No adenopathy in the pelvis. The prostate gland is enlarged. There is a large right and moderate-sized left hydrocele. Vasectomy clips are noted. Bones: Lumbosacral fusion from L4 through S1 with disc spacers at all levels. No aggressive bone lesions. IMPRESSION: 1. No visible masses in the urinary tract or evidence of obstructive uropathy. 2. Slight posterior urinary bladder wall thickening, potentially due to chronic over distension given enlarged prostate gland. 3. There is slight enlargement in a chronic enhancing pancreatic tail mass now measuring up to 2.2 cm, present three years ago. Both benign and malignant etiologies should be considered. Further evaluation with pancreatic MRI is recommended. 4. Chronic mild biliary dilatation. Dictated by: Silvia Simpson M.D. on 07/22/2022 at 11:51 Approved by: Silvia Simpson M.D. on 07/22/2022 at 12:10
== END ==
PROVIDERS: Family Provider Student in an Organized Health Care Education/Training Program; PCP Student in an Organized Health Care Education/Training Program; Referring Provider Urology; Visit Provider Urology
DX: C67.3 Malignant neoplasm of anterior wall of bladder (principal); K86.9 Disease of pancreas, unspecified; K83.8 Other specified diseases of biliary tract; N40.0 Benign prostatic hyperplasia without lower urinary tract symptoms; N43.3 Hydrocele, unspecified; Z98.1 Arthrodesis status
CPT/HCPCS: 74178; Q9967

== ENCOUNTER 2022-07-22 13:18 | Emergency (ER) | payer OTHER, SELFPAY ==
--- NOTE | 2022-07-22 13:58 | ED_ITS ---
HPI - Extremity Injury (Upper) <RIAN Leo - Last Filed: 07/22/22 17:35> General Chief Complaint: Extremity Injury, Upper Stated Complaint: sent by [facility] cut into finger w/fingernail Time Seen by Provider: 07/22/22 13:56 History of Present Illness HPI narrative: This is a 86-year-old male who presents to the emergency department for a laceration to his left index finger. He was using a serrated knife and trying to remove the plastic around the cap of the bottle and accidentally cut his left 2nd and 3rd digits. He received his Tdap vaccination today at the walk-in clinic at 12:29 and was sent over to the emergency department for evaluation and suture repair. Has a laceration through the fingernail and was recommended to go to the emergency department for nail bed repair. Patient reports that he is anticoagulated, states that the bleeding was persistent and he did not have a chance to clean his wound 1st and just covered it up with gauze and a bandage. Related Data Home Medications Medication Instructions Recorded Confirmed cholecalciferol (vitamin D3) 50 2,000 unit PO DAILY 06/02/19 09/27/21 mcg (2,000 unit) capsule Previous Rx's Medication Instructions Recorded aspirin 81 mg tablet,delayed 81 mg PO DAILY #30 tabs 05/20/21 release (Adult Aspirin Regimen) atorvastatin 40 mg tablet 40 mg PO DAILY #30 tabs 05/20/21 carvedilol 3.125 mg tablet 3.125 mg PO BID #30 tabs 05/20/21 clopidogrel 75 mg tablet (Plavix) 75 mg PO DAILY #30 tabs 05/20/21 lisinopril 10 mg tablet 10 mg PO DAILY #30 tabs 05/20/21 tadalafil (pulm. hypertension) 20 20 mg PO DAILY PRN sexual activity 01/28/22 mg tablet (pulmonary hypertension) #30 tabs Allergies Allergy/AdvReac Type Severity Reaction Status Date / Time Penicillins [PENICILLINS] Allergy Mild rash Verified 09/27/21 11:31 Review of Systems <RIAN Leo - Last Filed: 07/22/22 17:35> Review of Systems ROS Unobtainable: All systems reviewed & are unremarkable except as noted in HPI and below Patient History <RIAN Leo - Last Filed: 07/22/22 17:35> Medical History Coccidioidomycosis, unspecified (11/11/10) DDD (degenerative disc disease), lumbar Hyperlipidemia Hypertension Right inguinal hernia (02/2014) Spinal stenosis of lumbar region (06/17/15) Villous adenoma of colon (1998) Surgical History History of inguinal hernia repair (2016) History of spinal surgery (2015) History of spinal surgery (2016) S/P TURP (status post transurethral resection of prostate) Status post arthroscopy (2010) Status post colectomy (1979) Status post colonoscopy (2009) Family History Father Colorectal cancer Mother No problems noted. Social History household members: spouse Smoking Status: Never smoker Smoking Status: Never smoker alcohol intake frequency: a few times a month Substance Use Type: does not use Exam <RIAN Leo - Last Filed: 07/22/22 17:35> Narrative Exam Narrative: Reviewed vitals signs and nursing notes. Patient is pleasant, sitting upright in bed, bleeding is controlled with bandages, he is talkative. MSK: Left hand with laceration to his 2nd and 3rd digits Skin: brisk capillary refill, without rash or wound Neuro: normal speech and cognition, A&O x3 Initial Vital Signs Initial Vital Signs: Vital Signs Temperature 97.8 F 07/22/22 14:28 Pulse Rate 69 07/22/22 14:28 Respiratory Rate 18 07/22/22 14:28 Blood Pressure 163/91 H 07/22/22 14:28 Pulse Oximetry 97 07/22/22 14:28 Oxygen Delivery Method Room Air 07/22/22 14:28 <Sanjay Mann DO - Last Filed: 07/22/22 17:39> Initial Vital Signs Initial Vital Signs: Vital Signs Temperature 97.8 F 07/22/22 14:28 Pulse Rate 69 07/22/22 14:28 Respiratory Rate 18 07/22/22 14:28 Blood Pressure 163/91 H 07/22/22 14:28 Pulse Oximetry 97 07/22/22 14:28 Oxygen Delivery Method Room Air 07/22/22 14:28 Procedures <RIAN Leo - Last Filed: 07/22/22 17:35> Laceration Repair Laceration 1: Side (If applicable): left Size (cm): 2 Description: linear Depth: simple, single layer Local Anesthetic: lidocaine 2% Amount of anesthesia used (mL): 3 Pre-repair: wound explored, irrigated extensively and deep structures intact (Through the nail bed, the distal fingernail was removed with approximately 5 mm of nail removed proximal to the laceration for suture repair. Nail was trimmed, sutured nail bed with Vicryl sutures,) Skin layer closed with: vicryl (And nylon sutures used externally) Skin layer suture size: 5-0 Number of sutures: 4 Technique: simple, interrupted Subcutaneous layer closed with: vicryl Subcutaneous layer suture size: 4-0 Number of sutures: 6 Technique: simple, interrupted Course <RIAN Leo - Last Filed: 07/22/22 17:35> Orders Ordered: Discontinued Medications Bacitracin (Bacitracin Oint 0.9 Gm Pckt) 1 applic TOP NOW ONE Stop: 07/22/22 15:22 Last Admin: 07/22/22 15:32 Dose: 1 applic Documented By: AINSLEY Lidocaine HCl (Lidocaine 2% Inj Sdv 5ml) 5 ml INJ INTRA-OP ONE Stop: 07/22/22 13:58 Last Admin: 07/22/22 14:45 Dose: 5 ml Documented By: WILLEM Vital Signs Vital signs: Vital Signs - 8 hr 07/22/22 14:28 07/22/22 15:49 Temperature 97.8 F Pulse Rate 69 69 Respiratory Rate 18 18 Blood Pressure 163/91 H 180/97 H Pulse Oximetry 97 98 Oxygen Delivery Method Room Air Room Air <Sanjay Mann DO - Last Filed: 07/22/22 17:39> Orders Ordered: Discontinued Medications Bacitracin (Bacitracin Oint 0.9 Gm Pckt) 1 applic TOP NOW ONE Stop: 07/22/22 15:22 Last Admin: 07/22/22 15:32 Dose: 1 applic Documented By: AINSLEY Lidocaine HCl (Lidocaine 2% Inj Sdv 5ml) 5 ml INJ INTRA-OP ONE Stop: 07/22/22 13:58 Last Admin: 07/22/22 14:45 Dose: 5 ml Documented By: WILLEM Vital Signs Vital signs: Vital Signs - 8 hr 07/22/22 14:28 07/22/22 15:49 Temperature 97.8 F Pulse Rate 69 69 Respiratory Rate 18 18 Blood Pressure 163/91 H 180/97 H Pulse Oximetry 97 98 Oxygen Delivery Method Room Air Room Air MDM - Extremity Injury (Upper) <RIAN Leo - Last Filed: 07/22/22 17:35> MDM Narrative Medical decision making narrative: Chief Complaint: Finger laceration Multiple etiologies for patient's symptoms considered including, but not limited to: Finger laceration, nail bed laceration, tendon injury, vascular injury I have independently reviewed the patient's vital signs and nursing notes as well as prior records if available. Pertinent records include: Patient received a tetanus vaccination at the walk-in clinic today Course of care: Suture repair of patient's nail bed and finger was completed without complication. Thorough irrigation of wound without evidence of deeper injury, tendon injury or vascular injury. He has full flexion-extension intact it both fingers of injury. Nail bed was repaired with Vicryl sutures after fingernail was partially removed. Patient understands to have his wound checked in the next 7 today days and have his sutures taken out. Use topical antibiotic covered by a nonstick dressing until them. He will return to the emergency department for worsening symptoms, streaking and redness up his hand or finger, or other signs of infection or mobility problems. Social considerations that may affect disposition: none Questions are addressed and there is agreement with the plan and for follow-up. Patient is appropriate for outpatient management. Discharge Plan Departure Patient Disposition: Home Clinical Impression: Finger laceration Qualifiers: Encounter type: initial encounter Finger: index finger Damage to nail status: with damage Foreign body presence: without foreign body Laterality: left Qualified Code(s): S61.311A - Laceration without foreign body of left index finger with damage to nail, initial encounter Instructions: DI for Laceration Repair -- Finger, How to Care for Absorbable Sutures Activity Restrictions/Additional Instructions: *You have been diagnosed with finger laceration which extends through the fingernail. Please have your sutures removed in 7-10 days, please use something nonstick like antibacterial ointment and a Band-Aid to keep this safe from the elements. Please keep it covered while you are out and about, if you have any redness or streaking up your finger, worsening pain then please return to the emergency department for oral antibiotics. It was nice to meet you, thank you for the good conversation, good rest of your day. Your tetanus was updated so you do not need another 1 for 10 years. You can follow-up at the walk-in clinic for wound recheck if you have any concerns. The white sutures will start to unravel and dissolve, okay to let them go. *What to do: *Please continue to take your regular medications as directed. [ ] New medication prescriptions sent to your pharmacy: [ ] [ ] New medication written as a paper prescription [x ] No new medications given *Please follow up with your primary care provider in 2-3 days, call for an appointment. Let them know you were seen in the Emergency Department and that we asked that you be seen for follow-up. We will electronically transmit a record of today's note if your PCP is in our system *If you do not have a primary care provider please contact [phone] to establish care with one of the [facility] primary care providers. *Return to Emergency Department if you should have any new, worsening, or concerning symptoms, such as [fever greater than 101F, chills, worsening pain, persistent vomiting or other bothersome symptoms]. Prescriptions: No Action carvedilol 3.125 mg tablet 3.125 mg PO BID Qty: 30 0RF Rx Instructions: must administer with a meal/food lisinopril 10 mg tablet 10 mg PO DAILY Qty: 30 0RF atorvastatin 40 mg tablet 40 mg PO DAILY Qty: 30 0RF clopidogrel [Plavix] 75 mg tablet 75 mg PO DAILY Qty: 30 0RF aspirin [Adult Aspirin Regimen] 81 mg tablet,delayed release (DR/EC) 81 mg PO DAILY Qty: 30 0RF tadalafil (pulm. hypertension) 20 mg tablet 20 mg PO DAILY PRN (Reason: sexual activity) Qty: 30 11RF Rx Instructions: administer approximately 30min before sexual activity; do not use more than 1 dose per 24hrs cholecalciferol (vitamin D3) 50 mcg (2,000 unit) capsule 2,000 unit PO DAILY Referrals: Deonte Ricks MD [Primary Care Provider] - Stand Alone Forms: Patient Portal/API <Sanjay Mann, - Last Filed: 07/22/22 17:39> Cosign ED Attending Cosignature Attestation: Dr Mann Co-Sign Statement: I was available for consultation during this patient's emergency department visit. This chart is signed by myself for administrative purposes only. I did not have direct contact with this patient during this visit. They were seen independently by the APC.
[2022-07-22 14:28] VITALS: BP 163/91; PULSE 69; RESP 18; TEMP 36.6; O2SAT 97; BMI 23.7
[2022-07-22] MEDS: LIDOCAINE 2% INJ SDV 5ML 5 ML INJ (14:45)
[2022-07-22] MEDS: BACITRACIN OINT 0.9 GM PCKT 1 APPLIC TOP (15:32)
[2022-07-22 15:49] VITALS: BP 180/97; PULSE 69; RESP 18; O2SAT 98
--- NOTE | 2022-07-22 15:49 | PC.NURSE ---
sutures placed by Nayeli Montenegro
== END 2022-07-22 15:50 | disposition home or self-care (01) ==
PROVIDERS: Emergency Provider Nurse Practitioner Critical Care Medicine; Family Provider Student in an Organized Health Care Education/Training Program; PCP Student in an Organized Health Care Education/Training Program
DX: S61.311A Laceration without foreign body of left index finger with damage to nail, initial encounter (principal); W26.0XXA Contact with knife, initial encounter; C67.3 Malignant neoplasm of anterior wall of bladder; K86.9 Disease of pancreas, unspecified; K83.8 Other specified diseases of biliary tract; N40.0 Benign prostatic hyperplasia without lower urinary tract symptoms; N43.3 Hydrocele, unspecified; Z98.1 Arthrodesis status
CPT/HCPCS: 12001; 74178; 99283; 99284; Q9967

== ENCOUNTER → 2022-08-04 07:41 | Outpatient (CLI) | payer OTHER, SELFPAY ==
--- NOTE | 2022-08-04 | DI.MRI.S_ITS ---
PROCEDURE: MR ABDOMEN WO/W CON INDICATIONS: PANCREATIC MASS TECHNIQUE: Coronal HASTE, axial 2D FLASH in- and [id number]; axial breath-hold T2 FSE with fat saturation from the hepatic dome to the iliac crests. Oblique coronal thin-slice and radial thick slab HASTE through the biliary system. Dynamic axial VIBE during administration of contrast. Post-contrast coronal VIBE or 2D FLASH with fat saturation from the hepatic dome to the iliac crests. Optional diffusion weighted imaging and ADC may be performed. COMPARISON: CT 07/22/2022. FINDINGS: Image quality: Excellent. Pancreas and biliary system: In the tail of the pancreas, there is an obstructing mass measuring 2.1 x 2.0 cm (series 4, image 17). The mass is T1 isointense, T2 hypointense with arterial enhancement which persists on the delayed sequences. The splenic vasculatures posterior to this mass, with clean fat plane seen on comparison CT. There is moderate pancreatic ductal dilation distal to the mass, measuring up to 9 mm. Scattered T2 hyperintense cystic lesions throughout the pancreatic parenchyma, with close association to the pancreatic duct. Largest measures 1.2 cm in the head (series 10, image 1) No biliary dilation. Solid organs: Liver is normal in size and enhancement. No suspicious liver masses. Normal size of the spleen. Macro no complex no hydronephrosis. Nodes and vessels: No retroperitoneal or mesenteric adenopathy by size criteria. Aorta and inferior vena cava are normal in size. Bowel and peritoneum: Unenhanced bowel loops are normal in caliber throughout. No free fluid. Lung bases: No basal pleural effusions. Heart size is normal. Bones and soft tissues: No ventral hernias. Bone marrow is normal in overall signal. IMPRESSION: Obstructing mass in the pancreatic tail measuring 2.1 x 2.0 cm. Imaging features favor a neuroendocrine tumor over pancreatic adenocarcinoma. No worrisome vascular involvement. Recommend GI consultation for further evaluation. Additional pancreatic cystic lesions, largest measuring 1.2 cm, presumably pancreatic side-branch IPMNs. Follow-up with MRI/MRCP in 2 years, per ACR consensus guidelines. Dictated by: Trevon Alfaro M.D. on 08/04/2022 at 12:09 Approved by: Trevon Alfaro M.D. on 08/04/2022 at 12:19
== END ==
PROVIDERS: Family Provider Student in an Organized Health Care Education/Training Program; PCP Student in an Organized Health Care Education/Training Program; Referring Provider Student in an Organized Health Care Education/Training Program; Visit Provider Student in an Organized Health Care Education/Training Program
DX: K86.89 Other specified diseases of pancreas (principal)
CPT/HCPCS: 74183; A9579

== ENCOUNTER 2022-09-19 12:08 | Emergency (ER) | payer OTHER, SELFPAY ==
[2022-09-19] VITALS (7 sets, daily range): BP systolic 157–186; BP diastolic 82–91; PULSE 55–74; RESP 16–22; TEMP 36.3; O2SAT 92–97; BMI 24.4
--- NOTE | 2022-09-19 12:39 | DI.CT.S_ITS ---
PROCEDURE: CT CHEST ABD PEL W CON INDICATIONS: pancreatic cancer with left flank pain TECHNIQUE: After the administration of intravenous contrast, axial sections acquired from the supraclavicular neck to the pubic symphysis. Coronal and sagittal reformats were performed. For radiation dose reduction, the following was used: automated exposure control, adjustment of mA and/or kV according to patient size. COMPARISON: [facility], CR, XR CHEST 1 VIEW, 06/04/2021, 14:43. [facility], MR, MR ABDOMEN WO/W CON, 08/04/2022, 8:09. [facility], CT, CT ABDOMEN PELVIS W CON, 08/27/2020, 11:56. [facility], CT, CT ABDOMEN PELVIS WO/W CON, 07/30/2019, 11:56. [facility], CT, CT IVP A/P W/WO, 07/22/2022, 10:19. FINDINGS: Image quality: Excellent. CHEST: Lower Neck: No enlarged lymph nodes. Thyroid: Thyroid gland is normal in size. There is a 0.5 cm low-density nodule in the left thyroid lobe. Axillae: No enlarged lymph nodes. Chest Wall: Unremarkable. Gynecomastia. Lungs and Airways: There is a 6 mm noncalcified nodule along the right major fissure (series 6 image 195). Subpleural septal thickening bilaterally. 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 No pneumothorax or pleural effusions. Heart: Heart size is normal. No pericardial effusion. Moderate to severe coronary artery calcification. Thoracic Vessels: The aorta and pulmonary arteries demonstrate normal size. Mediastinum and [place]: No enlarged lymph nodes. Esophagus: No wall thickening. Small hiatal hernia. ABDOMEN: Liver: Unremarkable. Gallbladder: Unremarkable. Biliary ducts: Mild intrahepatic and extrahepatic biliary dilation appears unchanged. Common bile duct measures 10 mm. Pancreas: There is a 2.3 x 1.9 cm enhancing mass in the pancreatic tail, as seen on the last CT, minimally changed. There is no pancreatic duct dilation. Spleen: Unremarkable. Adrenal Glands: There is a 1 cm left adrenal nodule.. Kidneys and Ureters: Normal size and enhancement. No stones or hydronephrosis. There is a 1.3 cm hypodense nodule in left kidney, probably a cyst. Smaller indeterminate hypodense nodules are seen bilaterally, most likely cysts. Stomach and Bowel: Stomach, small bowel loops, and colon are unremarkable. There is a large amount of stool in colon. Peritoneum: No abnormal intraperitoneal fluid. No free air. Ventral Wall: No hernia. Abdominal Nodes: No retroperitoneal or mesenteric adenopathy by size criteria. Vessels: Aorta and inferior vena cava are normal in size. PELVIS: Pelvic Organs: Prostate is enlarged. Bladder: Bladder wall is mildly thickened. Pelvic Nodes: No enlarged lymph nodes. Miscellaneous: No inguinal hernias are seen. Large hydrocele. Bones: Severe degenerative changes in lumbar spine. There is posterior decompression and spinal fusion at L3-L5.. IMPRESSION: 1. A 2.3 x 1.9 cm enhancing mass in the pancreatic tail consistent with provided history of pancreatic cancer. Compared to the last CT dated 07/22/2022, there is no significant change in size. Intrahepatic and extrahepatic biliary dilation is also stable. 2. No definitive metastatic disease in thorax, abdomen or pelvis. 3. A large amount of stool in colon. 4. Mild bladder wall thickening. Prostate is enlarged. The finding may be secondary to chronic bladder outlet obstruction. 5. 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 6. A 6 mm noncalcified nodule in the right major fissure. Recommend a short-term follow-up CT in 3 months. 7. A large amount of stool in colon. 8. Large hydrocele. Consider scrotal ultrasound if clinically indicated. Dictated by: Ellyn Leiva M.D. on 09/19/2022 at 16:18 Approved by: Ellyn Leiva M.D. on 09/19/2022 at 16:34
[2022-09-19 13:03] LABS: Add Manual Diff / Slide Review NO; Basophils Absolute Auto 0 /uL (0-100); Basophils Percent Auto 0.6 % (0-2); Eosinophils Absolute Auto 200 /uL (0-450); Eosinophils Percent Auto 3.5 % (2-4); Hemoglobin 14.1 g/dL (13.5-17.5); Lymphocytes Absolute Auto 1100 /uL (1100-4500); Lymphocytes Percent Auto 17.8 % (25-40); Mean Corpuscular HGB Conc 34.3 % (30-36); Mean Corpuscular Hemoglobin 30.9 PG (26-34); Mean Corpuscular Volume 90.2 fL (80-100); Monocytes Absolute Auto 700 /uL (0-900); Monocytes Percent Auto 11.9 % (3-14); Neutrophils Absolute Auto 4100 /uL (1500-7000); Neutrophils Percent Auto 66.2 % (50-75); Platelet Count 234 X10^3/uL (150-400); Red Blood Cell Count 4.55 X10^6/uL (4.5-5.9); Red Cell Distribution Width 13.5 % (11.6-14.8); White Blood Cell Count 6.2 X10^3/uL (4.5-11.0)
[2022-09-19 13:19] LABS: Alanine Aminotransferase 27 IU/L (<50); Albumin 4.1 g/dL (3.5-5.0); Albumin Globulin Ratio 1.3 (1.0-2.8); Alkaline Phosphatase 76 U/L (38-126); Aspartate Aminotransferase 40 IU/L (17-59); BUN Creatinine Ratio 23.5 (6-22); Bilirubin Total 0.3 mg/dL (0.2-1.3); Blood Urea Nitrogen 16 mg/dL (9-20); Calcium 9.6 mg/dL (8.4-10.2); Carbon Dioxide 25 mmol/L (22-32); Chloride 101 mmol/L (98-107); Estimated Glomerular Filt Rate > 60 mL/min (>60); Globulin 3.2 g/dL (1.7-4.1); Glucose 92 mg/dL (80-110); HEMOLYSIS 19 (0-50); Lipase 37 U/L (23-300); Potassium 4.5 mmol/L (3.4-5.1); Sodium 133 mmol/L (137-145); Total Protein 7.3 g/dL (6.3-8.2)
[2022-09-19] MEDS: MORPHINE 2 MG/ML INJ IV (16:49)
--- NOTE | 2022-09-19 17:15 | ED_ITS ---
HPI - Abdominal Pain General Chief Complaint: Urogenital-Male Stated Complaint: pain over lt kidney/dr ref/has pancreatic cancer Time Seen by Provider: 09/19/22 16:50 Source: patient and family Mode of arrival: Ambulatory History of Present Illness HPI narrative: Patient is a 87-year-old male with history of coronary artery disease, recently newly diagnosed pancreatic cancer presenting today with left-sided flank pain. He reports he was diagnosed back in July he has yet to start any treatment but has been seen by oncology. He has been doing well until today when he had left flank pain. No nausea or vomiting pain does not radiate to abdomen or groin. He denies any fever or chills. He took Tylenol and ibuprofen today without any relief. Related Data Home Medications Medication Instructions Recorded Confirmed cholecalciferol (vitamin D3) 50 2,000 unit PO DAILY 06/02/19 09/27/21 mcg (2,000 unit) capsule Previous Rx's Medication Instructions Recorded aspirin 81 mg tablet,delayed 81 mg PO DAILY #30 tabs 05/20/21 release (Adult Aspirin Regimen) atorvastatin 40 mg tablet 40 mg PO DAILY #30 tabs 05/20/21 carvedilol 3.125 mg tablet 3.125 mg PO BID #30 tabs 05/20/21 clopidogrel 75 mg tablet (Plavix) 75 mg PO DAILY #30 tabs 05/20/21 lisinopril 10 mg tablet 10 mg PO DAILY #30 tabs 05/20/21 tadalafil (pulm. hypertension) 20 20 mg PO DAILY PRN sexual activity 01/28/22 mg tablet (pulmonary hypertension) #30 tabs oxycodone 5 mg tablet 5 mg PO Q6H PRN pain #14 tabs 09/19/22 Allergies Allergy/AdvReac Type Severity Reaction Status Date / Time Penicillins [PENICILLINS] Allergy Mild rash Verified 09/19/22 12:16 Review of Systems Review of Systems ROS Unobtainable: All systems reviewed & are unremarkable except as noted in HPI and below Patient History Medical History Coccidioidomycosis, unspecified (11/11/10) DDD (degenerative disc disease), lumbar Hyperlipidemia Hypertension Right inguinal hernia (02/2014) Spinal stenosis of lumbar region (06/17/15) Villous adenoma of colon (1998) Surgical History History of inguinal hernia repair (2016) History of spinal surgery (2015) History of spinal surgery (2016) S/P TURP (status post transurethral resection of prostate) Status post arthroscopy (2010) Status post colectomy (1979) Status post colonoscopy (2009) Family History Father Colorectal cancer Mother No problems noted. Social History household members: spouse Smoking Status: Never smoker Smoking Status: Never smoker alcohol intake frequency: a few times a month Alcohol type: wine Substance Use Type: does not use Exam Initial Vital Signs Initial Vital Signs: Vital Signs Temperature 97.3 F L 09/19/22 12:16 Pulse Rate 73 09/19/22 12:16 Respiratory Rate 16 09/19/22 12:16 Blood Pressure 186/90 H 09/19/22 12:16 Pulse Oximetry 97 09/19/22 12:16 Oxygen Delivery Method Room Air 09/19/22 12:16 GENERAL: Alert pleasant 87-year-old male appears well and in no acute distress. HEENT: Head atraumatic,EOMI, pupils reactive, face symmetric, moist mucous membranes CARDIOVASCULAR: Regular rate and rhythm without murmurs, rubs or gallops. RESPIRATORY: Breath sounds equal bilaterally, no wheezes rales or rhonchi. ABDOMEN: Soft, nontender. Normoactive bowel sounds all 4 quadrants. No guarding or rebound. No masses : No CVA tenderness EXTREMITIES: Normal range of motion, no clubbing or edema. Neurovascularly intact NEUROLOGICAL: Alert and oriented x4.Normal gait and speech. SKIN: Warm, dry, no laceration, no petechiae, no rashes or lesions. Course Orders Ordered: ED Orders 09/19/22 12:39 CT chest abd pel w con Stat 09/19/22 12:53 CBC Auto Diff [Complete Blood Count AUTO DIFF] Stat CMP [Comprehensive Metabolic Panel] Stat Lipase Stat Discontinued Medications Ketorolac Tromethamine (Ketorolac 30 Mg/Ml Vial) 15 mg IV NOW ONE Stop: 09/19/22 17:29 Last Admin: 09/19/22 17:48 Dose: 15 mg Documented By: RB Morphine Sulfate (Morphine 2 Mg/Ml Inj) 2 mg IV NOW ONE Stop: 09/19/22 12:40 Last Admin: 09/19/22 16:49 Dose: 2 mg Documented By: RB Ondansetron HCl (Ondansetron 4 Mg Odt) 4 mg SL NOW PRN PRN Reason: Nausea And Vomiting Ondansetron HCl (Ondansetron 4 Mg/2 Ml Inj) 4 mg IV NOW PRN PRN Reason: Nausea And Vomiting Vital Signs Vital signs: Vital Signs - 8 hr 09/19/22 12:16 09/19/22 16:32 09/19/22 16:35 Temperature 97.3 F L Pulse Rate 73 74 Respiratory Rate 16 Blood Pressure 186/90 H 157/91 H Pulse Oximetry 97 92 Oxygen Delivery Method Room Air 09/19/22 16:35 09/19/22 17:00 09/19/22 17:00 Temperature Pulse Rate 60 59 L Respiratory Rate Blood Pressure 165/87 H Pulse Oximetry 97 97 Oxygen Delivery Method 09/19/22 17:30 09/19/22 17:44 09/19/22 17:44 Temperature Pulse Rate 55 L 55 L Respiratory Rate 20 22 Blood Pressure 159/82 H Pulse Oximetry 97 97 Oxygen Delivery Method 09/19/22 18:00 09/19/22 18:00 Temperature Pulse Rate 57 L Respiratory Rate Blood Pressure 160/83 H Pulse Oximetry 96 Oxygen Delivery Method MDM - Abdominal Pain Lab Data 09/19/22 12:53 09/19/22 12:53 Labs: Lab Results 09/19/22 09/19/22 Range/Units 12:53 12:53 WBC 6.2 (4.5-11.0) X10^3/uL RBC 4.55 (4.5-5.9) X10^6/uL Hgb 14.1 (13.5-17.5) g/dL Hct 41.0 (41-53) % MCV 90.2 (80-100) fL MCH 30.9 (26-34) PG MCHC 34.3 (30-36) % RDW 13.5 (11.6-14.8) % Plt Count 234 (150-400) X10^3/uL Neut % (Auto) 66.2 (50-75) % Lymph % (Auto) 17.8 L (25-40) % [place] % (Auto) 11.9 (3-14) % Eos % (Auto) 3.5 (2-4) % Baso % (Auto) 0.6 (0-2) % Neut # (Auto) 4100 (4085-5123) /uL Lymph # (Auto) 1100 (1922-2963) /uL [place] # (Auto) 700 (0-900) /uL Eos # (Auto) 200 (0-450) /uL Baso # (Auto) 0 (0-100) /uL Sodium 133 L (137-145) mmol/L Potassium 4.5 (3.4-5.1) mmol/L Chloride 101 (98-107) mmol/L Carbon Dioxide 25 (22-32) mmol/L BUN 16 (9-20) mg/dL Creatinine 0.68 (0.66-1.25) mg/dL Estimated GFR > 60 (>60) mL/min BUN/Creatinine Ratio 23.5 H (6-22) Glucose 92 (80-110) mg/dL Calcium 9.6 (8.4-10.2) mg/dL Total Bilirubin 0.3 (0.2-1.3) mg/dL AST 40 (17-59) IU/L ALT 27 (<50) IU/L Alkaline Phosphatase 76 (38-126) U/L Total Protein 7.3 (6.3-8.2) g/dL Albumin 4.1 (3.5-5.0) g/dL Globulin 3.2 (1.7-4.1) g/dL Albumin/Globulin Ratio 1.3 (1.0-2.8) Lipase 37 (23-300) U/L Point of care testing: Urine Dip Bedside Urine Glucose Negative Bedside Urine Bilirubin - Negative Bedside Urine Ketone - Negative Urine Specific [place] 1.005 Bedside Urine Occult Blood - Negative Bedside Urine pH 6.5 Bedside Urine Protein - Negative Bedside Urine Urobilinogen - Negative Bedside Urine Nitrite - Negative Bedside Urine Leukocytes - Negative Esterase Imaging Data CT scan - abdomen/pelvis: Radiologist's Impression: PROCEDURE:? CT CHEST ABD PEL W CON ? INDICATIONS:? pancreatic cancer with left flank pain ? TECHNIQUE:? After the administration of intravenous contrast, axial sections acquired from the supraclavicular neck to the pubic symphysis.? Coronal and sagittal reformats were performed.? For radiation dose reduction, the following was used:? automated exposure control, adjustment of mA and/or kV according to patient size.? ? COMPARISON: ? [facility], CR, XR CHEST 1 VIEW, 06/04/2021, 14:43.? [facility], MR, MR ABDOMEN WO/W CON, 08/04/2022, 8:09.? [facility], CT, CT ABDOMEN PELVIS W CON, 08/27/2020, 11:56.? [facility], CT, CT ABDOMEN PELVIS WO/W CON, 07/30/2019, 11:56.? [facility], CT, CT IVP A/P W/WO, 07/22/2022, 10:19. ? FINDINGS:? Image quality:? Excellent.? ? CHEST: Lower Neck: No enlarged lymph nodes.? Thyroid:? Thyroid gland is normal in size.? There is a 0.5 cm low-density nodule in the left thyroid lobe. Axillae: No enlarged lymph nodes. Chest Wall:? Unremarkable.? Gynecomastia. ? Lungs and Airways:? There is a 6 mm noncalcified nodule along the right major fissure (series 6 image 195).? Subpleural septal thickening bilaterally. Pleura: There are multiple calcified pleural plaques and nodules bilaterally, probably sequelae of asbestos exposure.? No pneumothorax or pleural effusions.? ? Heart: Heart size is normal.? No pericardial effusion.? Moderate to severe cor onary artery calcification. Thoracic Vessels: The aorta and pulmonary arteries demonstrate normal size.? Mediastinum and [place]: No enlarged lymph nodes.? Esophagus: No wall thickening.? Small hiatal hernia. ? ? ABDOMEN: Liver:? Unremarkable.? ? Gallbladder:? Unremarkable.? ? Biliary ducts:? Mild intrahepatic and extrahepatic biliary dilation appears unchanged.? Common bile duct measures 10 mm. ? Pancreas:? There is a 2.3 x 1.9 cm enhancing mass in the pancreatic tail, as seen on the last CT, minimally changed.? There is no pancreatic duct dilation.? Spleen:? Unremarkable.? ? Adrenal Glands:? There is a 1 cm left adrenal nodule..? ? Kidneys and Ureters:? Normal size and enhancement.? No stones or hydronephrosis.? There is a 1.3 cm hypodense nodule in left kidney, probably a cyst.? Smaller in determinate hypodense nodules are seen bilaterally, most likely cysts.? ? ? Stomach and Bowel:? Stomach, small bowel loops, and colon are unremarkable.? There is a large amount of stool in colon. Peritoneum:? No abnormal intraperitoneal fluid.? No free air.? ? Ventral Wall: ? No hernia.? Abdominal Nodes:? No retroperitoneal or mesenteric adenopathy by size criteria.? Vessels:? Aorta and inferior vena cava are normal in size.? ? PELVIS: Pelvic Organs:? Prostate is enlarged.? ? Bladder:? Bladder wall is mildly thickened.? ? Pelvic Nodes: No enlarged lymph nodes.? Miscellaneous: No inguinal hernias are seen.? Large hydrocele.? ? Bones:? Severe degenerative changes in lumbar spine.? There is posterior decompression and spinal fusion at L3-L5..? ? ? IMPRESSION:? ? 1.? A 2.3 x 1.9 cm enhancing mass in the pancreatic tail consistent with provided history of pancreatic cancer.? Compared to the last CT dated 07/22/2022, there is no significant change in size.? Intrahepatic and extrahepatic biliary dilation is also stable. ? 2.? No definitive metastatic disease in thorax, abdomen or pelvis. ? 3.? A large amount of stool in colon. ? 4. Mild bladder wall thickening.? Prostate is enlarged.? The finding may be secondary to chronic bladder outlet obstruction. ? 5. 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 ? 6. A 6 mm noncalcified nodule in the right major fissure.? Recommend a short- term follow-up CT in 3 months. ? 7. A large amount of stool in colon.? ? 8. Large hydrocele.? Consider scrotal ultrasound if clinically indicated. ? Dictated by: Ellyn Leiva M.D. on 09/19/2022 at 16:18 ? [facility] Narrative Medical decision making narrative: Patient sara 87-year-old male recently diagnosed with pancreatic cancer presents today with left flank pain. Pain is well controlled even before morphine given. Blood work is overall reassuring. CT does not show any enlarging mass or distant metastatic disease. At this time will give him oxycodone to take at home for further pain management if needed. And he can follow-up oncology as scheduled. Discharge Plan Departure Patient Disposition: Home Clinical Impression: Back pain, Pancreatic cancer Instructions: Low Back Pain Activity Restrictions/Additional Instructions: *You have been diagnosed with back pain *What to do: At this time please follow-up with your cancer doctors. *Continue to take medications as directed Tylenol 650 mg every 4-6 hours if needed for [id number] pain Oxycodone 5 mg every 6 hours if needed for severe pain *Follow up with your primary care provider in 2-3 days or call [phone] *Return to ER if you should have increasing back pain nausea vomiting or any new, worsening or concerning symptoms CONTROLLED SUBSTANCE DISCHARGE (Narcotoic/benzodiazepine/Flexeril/Phenergan) 1. You have been prescribed narcotic medications, it does have acetaminophen/Tylenol/paracetamol in it, DO NOT TAKE MORE THAN 4,00mg in 24 hours of Tylenol. TRAMADOL DOES NOT CONTAIN TYLENOL 2. Please understand that we cannot provide further refills of narcotics, benzodiazepines or controlled substances through the ED and her pain management will need to be through your provider. 3. While on these medications you cannot drive or operate heavy machinery. 4. You cannot sign legal documents or perform any duties such as this. 5. As long as you're taking opiate pain medications he should also be taking a stool softener such as Colace, Dulcolax, MiraLAX or prune juice, to help avoid constipation. Prescriptions: New oxycodone 5 mg tablet 5 mg PO Q6H PRN (Reason: pain) Qty: 14 0RF No Action carvedilol 3.125 mg tablet 3.125 mg PO BID Qty: 30 0RF Rx Instructions: must administer with a meal/food lisinopril 10 mg tablet 10 mg PO DAILY Qty: 30 0RF atorvastatin 40 mg tablet 40 mg PO DAILY Qty: 30 0RF clopidogrel [Plavix] 75 mg tablet 75 mg PO DAILY Qty: 30 0RF aspirin [Adult Aspirin Regimen] 81 mg tablet,delayed release (DR/EC) 81 mg PO DAILY Qty: 30 0RF tadalafil (pulm. hypertension) 20 mg tablet 20 mg PO DAILY PRN (Reason: sexual activity) Qty: 30 11RF Rx Instructions: administer approximately 30min before sexual activity; do not use more than 1 dose per 24hrs cholecalciferol (vitamin D3) 50 mcg (2,000 unit) capsule 2,000 unit PO DAILY Referrals: Deonte Ricks MD [Primary Care Provider] - Stand Alone Forms: Patient Portal/API
[2022-09-19] MEDS: KETOROLAC 30 MG/ML VIAL 15 MG IV (17:48)
== END 2022-09-19 18:10 | disposition home or self-care (01) ==
PROVIDERS: Emergency Provider Emergency Medicine; Family Provider Student in an Organized Health Care Education/Training Program; PCP Student in an Organized Health Care Education/Training Program
DX: C25.9 Malignant neoplasm of pancreas, unspecified (principal); M54.9 Dorsalgia, unspecified; Z79.899 Other long term (current) drug therapy
CPT/HCPCS: 36415; 71260; 74177; 80053; 81003; 83690; 85025; 96374; 96375; 99284; J1885; J2270; Q9967

== ENCOUNTER → 2023-02-02 16:44 | Outpatient (CLI) | payer OTHER, SELFPAY ==
[2023-02-02 18:35] LABS: Alanine Aminotransferase 29 IU/L (<50); Albumin 4.2 g/dL (3.5-5.0); Albumin Globulin Ratio 1.4 (1.0-2.8); Alkaline Phosphatase 70 U/L (38-126); Aspartate Aminotransferase 36 IU/L (17-59); BUN Creatinine Ratio 22.7 (6-22); Bilirubin Total 0.3 mg/dL (0.2-1.3); Blood Urea Nitrogen 15 mg/dL (9-20); Carbon Dioxide 27 mmol/L (22-32); Chloride 101 mmol/L (98-107); Estimated Glomerular Filt Rate > 60 mL/min (>60); Globulin 3.1 g/dL (1.7-4.1); Glucose 114 mg/dL (80-110); HEMOLYSIS < 15 (0-50); Potassium 4.5 mmol/L (3.4-5.1); Sodium 135 mmol/L (137-145); Total Protein 7.3 g/dL (6.3-8.2)
[2023-02-02 18:37] LABS: Add Manual Diff / Slide Review NO; Basophils Absolute Auto 200 /uL (0-100); Basophils Percent Auto 2.4 % (0-2); Eosinophils Absolute Auto 500 /uL (0-450); Eosinophils Percent Auto 6.8 % (2-4); Hematocrit 42.9 % (41-53); Hemoglobin 14.3 g/dL (13.5-17.5); Lymphocytes Absolute Auto 1300 /uL (1100-4500); Lymphocytes Percent Auto 19.8 % (25-40); Mean Corpuscular HGB Conc 33.4 % (30-36); Mean Corpuscular Hemoglobin 30.2 PG (26-34); Mean Corpuscular Volume 90.5 fL (80-100); Monocytes Absolute Auto 800 /uL (0-900); Monocytes Percent Auto 12.5 % (3-14); Neutrophils Absolute Auto 3900 /uL (1500-7000); Neutrophils Percent Auto 58.5 % (50-75); Platelet Count 217 X10^3/uL (150-400); Red Blood Cell Count 4.75 X10^6/uL (4.5-5.9); Red Cell Distribution Width 14.3 % (11.6-14.8); White Blood Cell Count 6.7 X10^3/uL (4.5-11.0)
[2023-02-02 19:05] LABS: TSH w/ Reflex to FT4 0.67 uIU/mL (0.47-4.68)
[2023-02-02 19:15] LABS: Vitamin D 25 Hydroxy (D3) 81.2 ng/mL (30.0-100.0)
[2023-02-02 19:25] LABS: Vitamin B12 > 1000 pg/mL (239-931)
== END ==
PROVIDERS: Family Provider Student in an Organized Health Care Education/Training Program; PCP Family Medicine; Referring Provider Family Medicine; Visit Provider Family Medicine
DX: Z00.00 Encounter for general adult medical examination without abnormal findings (principal); C25.9 Malignant neoplasm of pancreas, unspecified; I10 Essential (primary) hypertension
CPT/HCPCS: 36415; 80053; 82306; 82607; 84443; 85025

== ENCOUNTER → 2023-02-11 09:57 | Outpatient (CLI) | payer OTHER, SELFPAY ==
[2023-02-17 22:13] LABS: Percent Free Testosterone 1.51 % (1.50-4.20); Testosterone Free 13.29 ng/dL (5.00-21.00)
== END ==
PROVIDERS: Family Provider Student in an Organized Health Care Education/Training Program; PCP Family Medicine; Referring Provider Family Medicine; Visit Provider Family Medicine
DX: R68.82 Decreased libido (principal); N52.9 Male erectile dysfunction, unspecified
CPT/HCPCS: 36415; 84402; 84403

== ENCOUNTER → 2023-09-19 14:58 | Outpatient (CLI) | payer OTHER, SELFPAY ==
[2023-09-19 16:02] LABS: BUN Creatinine Ratio 32.5 (6-22); Blood Urea Nitrogen 26 mg/dL (9-20); Calcium 9.7 mg/dL (8.4-10.2); Carbon Dioxide 30 mmol/L (22-32); Chloride 106 mmol/L (98-107); Cholesterol 169 mg/dL (140-199); Estimated Glomerular Filt Rate > 60 mL/min (>60); Glucose 126 mg/dL (80-110); HDL Cholesterol 66 mg/dL (40-60); HEMOLYSIS < 15 (0-50); LDL Cholesterol Calculated 85 mg/dL (<100); Potassium 4.5 mmol/L (3.4-5.1); Sodium 138 mmol/L (137-145); Triglycerides 88 mg/dL (35-150)
== END ==
PROVIDERS: Family Provider Student in an Organized Health Care Education/Training Program; PCP Family Medicine; Referring Provider Internal Medicine Interventional Cardiology; Visit Provider Internal Medicine Interventional Cardiology
DX: I25.2 Old myocardial infarction (principal)
CPT/HCPCS: 36415; 80048; 80061

== ENCOUNTER → 2023-12-08 14:57 | Outpatient (CLI) | payer OTHER, SELFPAY ==
--- NOTE | 2023-12-08 14:59 | DI.RAD.S_ITS ---
PROCEDURE: XR HAND LT MIN 3V INDICATIONS: Middle trigger finger, deformation of distal phalange TECHNIQUE: 3 views of the hand(s) acquired. COMPARISON: None. FINDINGS: Bones: No fractures or dislocations. Moderate to severe osteoarthritic changes are noted throughout left hand and wrist joints most notably involving 1st CMC joint, 2nd and 3rd DIP joints as well as 5th PIP joint. Features in interphalangeal joints are suggestive of erosive osteoarthritis. No suspicious bony lesions. Soft tissues: No suspicious soft tissue calcifications. 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 No acute fracture or dislocation. Dictated by: Boy Bell M.D. on 12/08/2023 at 17:35 Approved by: Boy Bell M.D. on 12/08/2023 at 17:36
--- NOTE | 2023-12-08 14:59 | DI.RAD.S_ITS ---
PROCEDURE: XR HAND RT MIN 3V INDICATIONS: Pain, deformation of distal phalange middle finger TECHNIQUE: 3 views of the hand(s) acquired. COMPARISON: None. FINDINGS: Bones: No fractures or dislocations. Carpal bones are normally aligned. Moderate to severe osteoarthritic changes are noted throughout right hand and wrist joints with particularly involving 2nd and 3rd DIP joints, 5th PIP and DIP joints. Features in above-mentioned joints are concerning for erosive osteoarthritis. No suspicious bony lesions. Soft tissues: No suspicious soft tissue calcifications. 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 No fracture or dislocation. Dictated by: Boy Bell M.D. on 12/08/2023 at 17:34 Approved by: Boy Bell M.D. on 12/08/2023 at 17:35
== END ==
PROVIDERS: Family Provider Student in an Organized Health Care Education/Training Program; PCP Family Medicine; Referring Provider Family Medicine; Visit Provider Family Medicine
DX: M65.332 Trigger finger, left middle finger (principal); M19.042 Primary osteoarthritis, left hand; M19.041 Primary osteoarthritis, right hand; M19.032 Primary osteoarthritis, left wrist; M19.031 Primary osteoarthritis, right wrist; M79.641 Pain in right hand; M79.642 Pain in left hand
CPT/HCPCS: 73130

== ENCOUNTER → 2024-03-12 09:15 | Outpatient (CLI) | payer OTHER, SELFPAY ==
[2024-03-12 10:32] LABS: C-Reactive Protein Quant < 0.5 mg/dL (<1.0)
[2024-03-12 10:34] LABS: Rheumatoid Factor 11.2 IU/mL (<12.0)
[2024-03-12 11:07] LABS: Erythrocyte Sedimentation Rate 7 MM/HR (0-15)
[2024-03-14 09:11] LABS: CCP Antibodies IgG/IgA 4 units (0-19)
[2024-03-15 14:13] LABS: ANA Screen, IFA Negative (.)
== END ==
PROVIDERS: Family Provider Student in an Organized Health Care Education/Training Program; PCP Family Medicine; Referring Provider Internal Medicine Interventional Cardiology; Visit Provider Internal Medicine Interventional Cardiology
DX: I25.2 Old myocardial infarction (principal); M19.041 Primary osteoarthritis, right hand; M19.042 Primary osteoarthritis, left hand
CPT/HCPCS: 36415; 85651; 86038; 86140; 86200; 86430

== ENCOUNTER 2024-08-22 14:47 | Emergency (ER) | payer OTHER, SELFPAY ==
[2024-08-22] VITALS (17 sets, daily range): BP systolic 170–217; BP diastolic 88–126; PULSE 63–77; RESP 17–24; TEMP 36.6; O2SAT 95–100; BMI 24.4
[2024-08-22 15:56] LABS: Add Manual Diff / Slide Review NO; Basophils Absolute Auto 100 /uL (0-100); Basophils Percent Auto 2.3 % (0-2); Eosinophils Absolute Auto 200 /uL (0-450); Eosinophils Percent Auto 2.8 % (2-4); Hematocrit 44.5 % (41-53); Hemoglobin 15.2 g/dL (13.5-17.5); Lymphocytes Absolute Auto 1100 /uL (1100-4500); Lymphocytes Percent Auto 17.6 % (25-40); Mean Corpuscular HGB Conc 34.3 % (30-36); Mean Corpuscular Hemoglobin 31.4 PG (26-34); Mean Corpuscular Volume 91.8 fL (80-100); Monocytes Absolute Auto 700 /uL (0-900); Monocytes Percent Auto 10.5 % (3-14); Neutrophils Absolute Auto 4300 /uL (1500-7000); Neutrophils Percent Auto 66.8 % (50-75); Platelet Count 228 X10^3/uL (150-400); Red Blood Cell Count 4.85 X10^6/uL (4.5-5.9); Red Cell Distribution Width 13.8 % (11.6-14.8); White Blood Cell Count 6.4 X10^3/uL (4.5-11.0)
[2024-08-22 16:10] LABS: Alanine Aminotransferase 25 IU/L (<50); Albumin 4.2 g/dL (3.5-5.0); Albumin Globulin Ratio 1.4 (1.0-2.8); Alkaline Phosphatase 70 U/L (38-126); Aspartate Aminotransferase 33 IU/L (17-59); BUN Creatinine Ratio 13.3 (6-22); Bilirubin Total 0.7 mg/dL (0.2-1.3); Blood Urea Nitrogen 11 mg/dL (9-20); Calcium 9.8 mg/dL (8.4-10.2); Carbon Dioxide 29 mmol/L (22-32); Chloride 102 mmol/L (98-107); Estimated Glomerular Filt Rate > 60 mL/min (>60); Globulin 3.1 g/dL (1.7-4.1); Glucose 155 mg/dL (70-99); HEMOLYSIS < 15 (0-50); Lipase 47 U/L (23-300); Potassium 4.5 mmol/L (3.4-5.1); Sodium 137 mmol/L (137-145); Total Protein 7.3 g/dL (6.3-8.2)
--- NOTE | 2024-08-22 17:07 | EKG_ITS ---
[facility] [address], [place] [address] Test Date: 2024-08-22 Pat Name: Richardson Brush Department: [facility] Room: Gender: Male [employer]: : 1935 Requested By: Order Number: [id number] Reading MD: Jason Bar MD Measurements Intervals [place] Rate: 64 P: 71 DE: 180 QRS: -5 QRSD: 82 T: 32 QT: 376 QTc: 387 Interpretive Statements Normal sinus rhythm Electronically Signed On 08-22-2024 17:13:33 PDT by Jason Bar MD
[2024-08-22 17:14] LABS: Appearance Urine UA CLEAR; Bilirubin Urine UA NEGATIVE (NEGATIVE); Color Urine UA YELLOW; Glucose Urine UA NEGATIVE (Negative); Ketones Urine UA NEGATIVE (NEGATIVE); Leukocyte Esterase Urine UA 2+ (NEGATIVE); Nitrite Urine UA POSITIVE (Negative); Occult Blood Urine UA 3+ (Negative); Protein Urine UA NEGATIVE (Negative); Urobilinogen Urine UA 0.2 E.U./dL (0.2)
[2024-08-22 17:23] LABS: Urine Volume 10mL (spun)
[2024-08-22 17:24] LABS: Bacteria Urine Moderate (10-30); Culture Indicated Urine Specimen Cultured; RBC Urine 10-30/HPF (0-5/HPF); Squamous Epithelial Cell Urine 0-1 /HPF (0-5/HPF); WBC Urine 5-10/HPF (0-5/HPF)
--- NOTE | 2024-08-22 18:22 | DI.CT.S_ITS ---
PROCEDURE: CT KIDNEY URETER BLADDER (KUB) INDICATIONS: right sided flank TECHNIQUE: Axial sections were acquired from the lung bases to the pubic symphysis. Coronal and sagittal reformats were performed. For radiation dose reduction, the following was used: automated exposure control, adjustment of mA and/or kV according to patient size. COMPARISON: Outside Facility, , CT THORAX/ABDOMEN/PELVIS WITH CONTRAST, 03/17/2023, 7:59. FINDINGS: Image quality: Diagnostic. Lower Chest: Calcifications of the bilateral lung bases. URINARY: Right Kidney: No stones or hydronephrosis. Right Ureter: No hydroureter. Left Kidney: No stones or hydronephrosis. Left Ureter: No hydroureter. Bladder: Normal wall thickness. No stones. ABDOMEN: Liver: No contour-deforming solid mass. Gallbladder: No radiopaque gallstones or wall thickening. Biliary ducts: No biliary dilation. Pancreas: No ductal dilation. Mildly hyperdense mass within the tail the pancreas measuring 2.1 x 2.0 cm. Spleen: Size is within normal limits. Adrenal Glands: No adrenal nodules. Stomach and Bowel: Normal colonic caliber, without significant wall thickening. Peritoneum: No abnormal intraperitoneal fluid. No free air. Ventral Wall: No hernia. Abdominal Nodes: No enlarged retroperitoneal or mesenteric lymph nodes. Vessels: Aorta and inferior vena cava are normal in size. Atherosclerotic vascular calcifications. PELVIS: Pelvic Organs: Prostatomegaly. Large hydroceles. Pelvic Nodes: Mild urinary bladder wall thickening. Miscellaneous: No inguinal hernias are seen. Bones: Degenerative changes of the spine. L2 through S1 posterior spinal fixation hardware. Decreased osseous mineralization. IMPRESSION: 1. No obstructing stones or hydronephrosis. 2. Mild diffuse urinary bladder wall thickening, may be secondary to chronic bladder outlet obstruction given prostatomegaly. Correlate for acute cystitis. 3. 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 Dictated by: Skip Trevino M.D. on 08/22/2024 at 19:21 Approved by: Skip Trevino M.D. on 08/22/2024 at 19:26
--- NOTE | 2024-08-22 18:54 | ED_ITS ---
HPI - Male Genitourinary General Chief complaint: Urogenital-Male Stated complaint: Urinary Symptoms Time Seen by Provider: 08/22/24 18:54 Source: patient Mode of arrival: Ambulatory History of Present Illness HPI Narrative: 88-year-old male with past medical history of hyperlipidemia, hypertension, pancreatic cancer, bladder cancer, presenting for right-sided kidney/flank pain, states it has been ongoing persistent for the past 2 days, denies any radiation of the pain, he denies any injuries, denies any other symptoms at this time Related Data Home Medications Medication Instructions Recorded Confirmed cholecalciferol (vitamin D3) 50 2,000 unit PO DAILY 06/02/19 12/06/23 mcg (2,000 unit) capsule Previous Rx's Medication Instructions Recorded aspirin 81 mg tablet,delayed 81 mg PO DAILY #30 tabs 05/20/21 release (Adult Aspirin Regimen) atorvastatin 40 mg tablet 40 mg PO DAILY #30 tabs 05/20/21 clopidogrel 75 mg tablet (Plavix) 75 mg PO DAILY #30 tabs 05/20/21 oxycodone 5 mg tablet 5 mg PO Q6H PRN pain #14 tabs 09/19/22 lisinopril 20 1 tab PO DAILY #30 tabs 07/18/23 mg-hydrochlorothiazide 12.5 mg tablet tadalafil 5 mg tablet 5 mg PO DAILY #30 tabs 07/18/23 Disabled Parking #1 ea 09/29/23 Disabled Parking Permit #1 ea 10/23/23 famotidine 20 mg tablet 20 mg PO BID #60 tabs 04/09/24 celecoxib 100 mg capsule (Celebrex) 100 mg PO BID #60 caps 05/15/24 cefpodoxime 200 mg tablet 200 mg PO BID 2 weeks #28 tabs 08/22/24 Allergies Allergy/AdvReac Type Severity Reaction Status Date / Time Penicillins [PENICILLINS] Allergy Mild rash Verified 12/06/23 15:36 Review of Systems Review of Systems Narrative: General: Denies fever, chills, weight loss HEENT: Denies headache, eye drainage, eye irritation, head trauma, sore throat, voice change Cardiovascular: Denies any chest pain, palpitations, tachycardia Respiratory: Denies any shortness of breath, cough, wheeze, stridor GI/: Positive right-sided flank pain Denies any abdominal pain, nausea, vomiting, diarrhea, bright red blood per rectum, melanotic stools, urinary frequency, urinary retention, dysuria, hematuria MSK: Denies any joint pain, muscle pains, swelling Skin: Denies any rashes, lesions, discoloration Neuro: Denies any headache, lightheadedness, dizziness, fainting, weakness Psych: Denies SI/HI Patient History Medical History (Updated 08/22/24 @ 20:49 by Manny Lugo DO) Hx of bladder cancer Malignant neoplasm of urinary bladder Coccidioidomycosis, unspecified (11/11/10) Right inguinal hernia (02/2014) DDD (degenerative disc disease), lumbar Hyperlipidemia Hypertension Villous adenoma of colon (1998) Spinal stenosis of lumbar region (06/17/15) Surgical History (Updated 03/25/24 @ 09:51 by Daphnie Porras LPN) S/P TURP (status post transurethral resection of prostate) History of inguinal hernia repair (2016) History of spinal surgery (2016) History of spinal surgery (2015) Status post arthroscopy (2010) Status post colonoscopy (2009) Status post colectomy (1979) Family History Father Colorectal cancer Mother No problems noted. Social History household members: spouse Smoking Status: Former smoker Smoking Status: Former smoker alcohol intake frequency: a few times a month Alcohol type: wine Exam Narrative Exam Narrative: General: Cooperative, well-developed, not in acute distress HEENT: Normocephalic, atraumatic, PERRLA, normal sclera, eyelids normal Neck: Active full range of motion, atraumatic Chest: Normal to inspection, negative crepitus, no overlying erythema ecchymosis Respiratory: Normal respiratory effort, not in acute respiratory distress, clear to auscultation bilaterally negative cough, wheeze, tachypnea, rhonchi, rales Cardiology: Regular rate rhythm negative gallop, murmur, rubs GI/: No tenderness to palpation, soft, non rigid, normal to inspection, exam deferred MSK: Full active range of motion in all 4 extremities, atraumatic, no tenderness to palpation of any bony prominences Skin: No rashes or lesions noted Neuro: Alert awake oriented x3, moves all 4 extremities spontaneously, cranial nerves intact, able to answer all questions appropriately follows commands appropriately Psych: Cooperative, negative suicidal or homicidal ideations Initial Vital Signs Initial Vital Signs: Vital Signs Temperature 98 F 08/22/24 15:16 Pulse Rate 72 08/22/24 15:16 Respiratory Rate 20 08/22/24 15:16 Blood Pressure 189/97 H 08/22/24 15:16 Pulse Oximetry 100 08/22/24 15:16 Oxygen Delivery Method Room Air 08/22/24 15:16 Course Orders Ordered: ED Orders 08/22/24 15:24 EKG-12 Lead Stat 08/22/24 15:35 Complete Blood Count AUTO DIFF Stat Comprehensive Metabolic Panel Stat Lipase Stat 08/22/24 17:00 Urinalysis and Microscopic Stat Urine Culture Stat 08/22/24 18:22 CT kidney ureter bladder (KUB) Stat Ondansetron HCl (Ondansetron 4 Mg/2 Ml Inj) 4 mg IV NOW PRN PRN Reason: Nausea And Vomiting Ondansetron HCl (Ondansetron 4 Mg Odt) 4 mg PO NOW PRN PRN Reason: Nausea And Vomiting Discontinued Medications Ceftriaxone Sodium 1,000 mg/ (Sodium Chloride) 100 mls @ 200 mls/hr IV NOW ONE Stop: 08/22/24 18:56 Last Infusion: 08/22/24 19:51 Dose: Infused Documented By: Admin: 08/22/24 19:14 Dose: 200 mls/hr Documented By: CHELSI Vital Signs Vital signs: Vital Signs - 8 hr 08/22/24 15:16 08/22/24 17:03 08/22/24 17:04 Temperature 98 F Pulse Rate 72 Respiratory Rate 20 Blood Pressure 189/97 H 217/126 H Pulse Oximetry 100 97 Oxygen Delivery Method Room Air 08/22/24 17:04 08/22/24 17:28 08/22/24 17:28 Temperature Pulse Rate 77 63 Respiratory Rate 22 Blood Pressure 176/102 H Pulse Oximetry 97 97 Oxygen Delivery Method 08/22/24 17:30 08/22/24 17:30 08/22/24 17:40 Temperature Pulse Rate 65 63 Respiratory Rate 24 17 Blood Pressure 176/96 H Pulse Oximetry 98 97 Oxygen Delivery Method 08/22/24 17:40 08/22/24 18:00 08/22/24 18:00 Temperature Pulse Rate 65 Respiratory Rate 20 Blood Pressure 175/97 H 170/93 H Pulse Oximetry 95 Oxygen Delivery Method 08/22/24 18:20 08/22/24 18:20 08/22/24 18:30 Temperature Pulse Rate 64 63 Respiratory Rate 21 20 Blood Pressure 190/105 H Pulse Oximetry 97 96 Oxygen Delivery Method MDM - Male Genitourinary Differential Diagnosis Differential diagnosis: Likely urinary tract infection and other (Nephrolithiasis, urolithiasis, electrolyte abnormality) Lab Data 08/22/24 15:35 08/22/24 15:35 Labs: Lab Results 08/22/24 08/22/24 Range/Units 15:35 17:00 WBC 6.4 (4.5-11.0) X10^3/uL RBC 4.85 (4.5-5.9) X10^6/uL Hgb 15.2 (13.5-17.5) g/dL Hct 44.5 (41-53) % MCV 91.8 (80-100) fL MCH 31.4 (26-34) PG MCHC 34.3 (30-36) % RDW 13.8 (11.6-14.8) % Plt Count 228 (150-400) X10^3/uL Neut % (Auto) 66.8 (50-75) % Lymph % (Auto) 17.6 L (25-40) % Curry % (Auto) 10.5 (3-14) % Eos % (Auto) 2.8 (2-4) % Baso % (Auto) 2.3 H (0-2) % Neut # (Auto) 4300 (7381-7130) /uL Lymph # (Auto) 1100 (3050-6938) /uL Curry # (Auto) 700 (0-900) /uL Eos # (Auto) 200 (0-450) /uL Baso # (Auto) 100 (0-100) /uL Sodium 137 (137-145) mmol/L Potassium 4.5 (3.4-5.1) mmol/L Chloride 102 (98-107) mmol/L Carbon Dioxide 29 (22-32) mmol/L BUN 11 (9-20) mg/dL Creatinine 0.83 (0.66-1.25) mg/dL Estimated GFR > 60 (>60) mL/min BUN/Creatinine Ratio 13.3 (6-22) Glucose 155 H (70-99) mg/dL Calcium 9.8 (8.4-10.2) mg/dL Total Bilirubin 0.7 (0.2-1.3) mg/dL AST 33 (17-59) IU/L ALT 25 (<50) IU/L Alkaline Phosphatase 70 (38-126) U/L Total Protein 7.3 (6.3-8.2) g/dL Albumin 4.2 (3.5-5.0) g/dL Globulin 3.1 (1.7-4.1) g/dL Albumin/Globulin Ratio 1.4 (1.0-2.8) Lipase 47 (23-300) U/L Urine Color Yellow Urine Appearance Clear Urine pH 7.0 (4.5-8.0) Ur Specific Donald 1.010 (1.000-1.035) Urine Protein Negative (Negative) Urine Glucose (UA) Negative (Negative) g/dL Urine Ketones Negative (NEGATIVE) Urine Occult Blood 3+ H (Negative) Urine Nitrate Positive H (Negative) Urine Bilirubin Negative (NEGATIVE) Urine Urobilinogen 0.2 (0.2) E.U./dL Ur Leukocyte Esterase 2+ H (NEGATIVE) Urine RBC 10-30/hpf H (0-5/HPF) Urine WBC 5-10/hpf H (0-5/HPF) Ur Squamous Epith Cells 0-1 /hpf (0-5/HPF) Urine Bacteria Moderate (10-30) H (None) Ur Culture Indicated? Specimen cultured Vol Urine Centrifuged 10ml (spun) Imaging Data CT KUB: Radiologist's Impression: [place] [address] CT Scan Report Signed Patient: Richardson Brush MR#: [id number] : 1935 Acct:[id number] Age/Sex: 88 / M Date of Service: 08/22/24 Loc: ED Accession Number: [id number] Procedure: CT kidney ureter bladder (KUB) Ordering Provider: Manny Lugo D.O. PROCEDURE: CT KIDNEY URETER BLADDER (KUB) INDICATIONS: right sided flank TECHNIQUE: Axial sections were acquired from the lung bases to the pubic symphysis. Coronal and sagittal reformats were performed. For radiation dose reduction, the following was used: automated exposure control, adjustment of mA and/or kV according to patient size. COMPARISON: Outside Facility, RG, CT THORAX/ABDOMEN/PELVIS WITH CONTRAST, 03/17/2023, 7:59. FINDINGS: Image quality: Diagnostic. Lower Chest: Calcifications of the bilateral lung bases. URINARY: Right Kidney: No stones or hydronephrosis. Right Ureter: No hydroureter. Left Kidney: No stones or hydronephrosis. Left Ureter: No hydroureter. Bladder: Normal wall thickness. No stones. ABDOMEN: Liver: No contour-deforming solid mass. Gallbladder: No radiopaque gallstones or wall thickening. Biliary ducts: No biliary dilation. Pancreas: No ductal dilation. Mildly hyperdense mass within the tail the pancreas measuring 2.1 x 2.0 cm. Spleen: Size is within normal limits. Adrenal Glands: No adrenal nodules. Stomach and Bowel: Normal colonic caliber, without significant wall thickening. Peritoneum: No abnormal intraperitoneal fluid. No free air. Ventral Wall: No hernia. Abdominal Nodes: No enlarged retroperitoneal or mesenteric lymph nodes. Vessels: Aorta and inferior vena cava are normal in size. Atherosclerotic vascular calcifications. PELVIS: Pelvic Organs: Prostatomegaly. Large hydroceles. Pelvic Nodes: Mild urinary bladder wall thickening. Miscellaneous: No inguinal hernias are seen. Bones: Degenerative changes of the spine. L2 through S1 posterior spinal fixation hardware. Decreased osseous mineralization. IMPRESSION: 1. No obstructing stones or hydronephrosis. 2. Mild diffuse urinary bladder wall thickening, may be secondary to chronic bladder outlet obstruction given prostatomegaly. Correlate for acute cystitis. 3. 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 ECG Data Interpretation: EKG interpreted ED physician sinus 64 beats per minute QTC [address] changes no STEMI MDM Narrative Medical decision making narrative: 88-year-old male with past medical history of hyperlipidemia hypertension BPH presenting from home for evaluation of right-sided flank pain, ongoing persistent for the past 2 days, he denies any radiation of the symptoms denies any trauma or falls, patient had lab work imaging urinalysis performed here, CT scan not showing any nephro or urolithiasis no hydronephrosis, diffuse bladder wall thickening consistent with possible cystitis, urinalysis is consistent with acute urinary tract infection given constellation of symptoms patient with pyelonephritis, patient's Chem panel unremarkable no leukocytosis well-appearing nontoxic did get a dose of Rocephin here in the emergency department and will be sent home with oral antibiotics strict return precautions given verbalized understanding of this and agrees to being discharged home with outpatient follow up Discharge Plan Departure Patient Disposition: Home Clinical Impression: Acute pyelonephritis Instructions: DI for Kidney Infection Activity Restrictions/Additional Instructions: Please follow up with your primary care doctor Please read the discharge instructions sheet carefully and bring all papers to all doctor follow-up visits, as it may contain information that your doctor may want to see. Disease processes change and evolve, if your symptoms worsen or if you develop any new symptoms that are concerning to you please return for evaluation. Your evaluation today does not show any evidence of any life- threatening/serious illnesses requiring admission to the hospital or surgery. Please follow-up with your doctor for re-evaluation in approximately 1 day. Seek immediate medical attention for any worrisome symptoms. *If you do not have a primary care provider please contact the [facility] Resource line at [phone]. They will ask some questions about your medical history and help get you set up with a doctor in the community. Prescriptions: New cefpodoxime 200 mg tablet 200 mg PO BID 14 Days Qty: 28 0RF Rx Instructions: must administer with a meal/food No Action tadalafil 5 mg tablet 5 mg PO DAILY Qty: 30 5RF lisinopril-hydrochlorothiazide 20-12.5 mg tablet 1 tab PO DAILY Qty: 30 6RF atorvastatin 40 mg tablet 40 mg PO DAILY Qty: 30 0RF clopidogrel [Plavix] 75 mg tablet 75 mg PO DAILY Qty: 30 0RF aspirin [Adult Aspirin Regimen] 81 mg tablet,delayed release (DR/EC) 81 mg PO DAILY Qty: 30 0RF (DME) Disabled Parking See Rx Instructions .ROUTE .MEDSUPPLY Qty: 1 0RF Rx Instructions: I find this patient to be medically disabled and qualified for DISABLED PARKING as indicated, and signed, on the ACCOMPANYING DISABLED PARKING APPLICATION for Individuals. (DME) Disabled Parking Permit See Rx Instructions .ROUTE .MEDSUPPLY Qty: 1 0RF Rx Instructions: I find this person to be disabled famotidine 20 mg tablet 20 mg PO BID Qty: 60 6RF celecoxib [Celebrex] 100 mg capsule 100 mg PO BID Qty: 60 5RF Rx Instructions: Take one or two caps daily as needed for pain cholecalciferol (vitamin D3) 50 mcg (2,000 unit) capsule 2,000 unit PO DAILY oxycodone 5 mg tablet 5 mg PO Q6H PRN (Reason: pain) Qty: 14 0RF Referrals: Tae Castellanos MD [Primary Care Provider] - Stand Alone Forms: Patient Portal/API/Survey
[2024-08-22] MEDS: cefTRIAXone 1,000 MG in SODIUM CHLORIDE 0.9% 100 ML 200 MG IV (19:14)
== END 2024-08-22 20:59 | disposition home or self-care (01) ==
PROVIDERS: Emergency Medicine; Emergency Provider Student in an Organized Health Care Education/Training Program; PCP Family Medicine
DX: N10 Acute pyelonephritis (principal); C67.9 Malignant neoplasm of bladder, unspecified; C25.9 Malignant neoplasm of pancreas, unspecified; Z95.5 Presence of coronary angioplasty implant and graft
CPT/HCPCS: 36415; 74176; 80053; 81001; 83690; 85025; 87077; 87086; 87147; 87186; 93005; 96365; 99284; J0696

== ENCOUNTER → 2024-09-09 14:35 | Outpatient (CLI) | payer OTHER, SELFPAY ==
[2024-09-09 15:11] LABS: Appearance Urine UA CLEAR; Bilirubin Urine UA NEGATIVE (NEGATIVE); Color Urine UA YELLOW; Glucose Urine UA NEGATIVE (Negative); Ketones Urine UA NEGATIVE (NEGATIVE); Leukocyte Esterase Urine UA NEGATIVE (NEGATIVE); Nitrite Urine UA NEGATIVE (Negative); Occult Blood Urine UA NEGATIVE (Negative); Protein Urine UA NEGATIVE (Negative); Urobilinogen Urine UA 0.2 E.U./dL (0.2)
[2024-09-09 15:17] LABS: Bacteria Urine Occasional (0-1); Culture Indicated Urine Cult Not Indicated; RBC Urine 0-1/HPF (0-5/HPF); Squamous Epithelial Cell Urine 0-1 /HPF (0-5/HPF); Urine Volume 10mL (spun); WBC Urine 0-1/HPF (0-5/HPF)
== END ==
LOC: LAB 14:36
PROVIDERS: PCP Family Medicine; Referring Provider Family Medicine; Visit Provider Family Medicine
DX: N10 Acute pyelonephritis (principal)
CPT/HCPCS: 81001

== ENCOUNTER → 2025-03-10 10:05 | Outpatient (CLI) | payer OTHER, SELFPAY ==
[2025-03-10 10:37] LABS: Alanine Aminotransferase 24 IU/L (<50); Albumin 4.3 g/dL (3.5-5.0); Albumin Globulin Ratio 1.4 (1.0-2.8); Alkaline Phosphatase 73 U/L (38-126); Blood Urea Nitrogen 18 mg/dL (9-20); Calcium 10.4 mg/dL (8.4-10.2); Carbon Dioxide 27 mmol/L (22-32); Chloride 98 mmol/L (98-107); Estimated Glomerular Filt Rate > 60 mL/min (>60); Globulin 3.0 g/dL (1.7-4.1); Glucose 143 mg/dL (70-99); HEMOLYSIS < 15 (0-50); Potassium 4.1 mmol/L (3.4-5.1); Sodium 133 mmol/L (137-145); Total Protein 7.3 g/dL (6.3-8.2)
== END ==
PROVIDERS: PCP Family Medicine; Referring Provider Family Medicine; Visit Provider Family Medicine
DX: I10 Essential (primary) hypertension (principal)
CPT/HCPCS: 36415; 80053